=== PATIENT | female | born 1940 | race Caucasian/White ===

== ENCOUNTER 2018-03-31 18:53 | Emergency (ER) | payer MEDICARE ==
[~2018-03-31] VITALS: Ht 167.6 cm; Wt 79.4 kg
[~2018-03-31 18:53] MED LIST: ATORVASTATIN CA20 MG PO; BUSPAR; BUSPIRONE HCL10 MG PO; CARBAMAZEPINE PO; COUMADIN5 MG PO; CRESTOR10 MG PO; CYCLOBENZAPRINE10 MG PO; DETROL LA4 MG PO; DEXILANT; DEXILANT60 MG PO; DIGOXIN250 MCG PO; DILTIAZEM ER240 MG PO; FUROSEMIDE40 MG PO; HYDROCODONE; LACTULOSE20 GM/30 M PO; LASIX40 MG PO; LEVOTHYROXINE200 MCG PO; LIDOCAIN PATCH TD; LIDODERM700 MG TD; LISINOPRIL; LISINOPRIL10 MG PO; LOZOL; LOZOL 2.5MG2.5 MG PO; METOPROLOL SUCC25 MG PO; MULTIVITAMIN PO; NASAL SPRAY INH; NORCO 10MG-325MG1 EA PO; NYSTATIN PO; NYSTATIN TOPICAL TOP; PANTOPRAZOLE SO40 MG PO; POTASSIUM CHLO10 ME1 PO; PREDNISONE10 MG PO; PREMARIN; PREMARIN0.9 MG PO; PREMARIN1.25 MG PO; SENNA; SENNA PO; SIMETHICONE80 MG PO; SOMA; SOMA250 MG PO; SYNTHROID; SYNTHROID PO; SYNTHROID75 MCG PO; TEGRETOL; TEGRETOL200 MG PO; TOPRAL; TOPROL XL25 MG PO; TOPROL XL50 MG PO; WARFARIN; WARFARIN SODIUM3 MG PO; WARFARIN SODIUM4 MG PO; WARFARIN SODIUM6 MG PO; ZOLPIDEM; xarelto PO
[2018-03-31] MEDS ORDERED: SODIUM CHLORIDE 0.9% 1000ML 1,000 ML IV STA (19:47)
[2018-03-31 20:11] LABS: BASOPHILS # (AUTO) 0.1 (0.0-0.1); BASOPHILS % 0.8 % (0.0-1.0); EOSINOPHILS # (AUTO) 0.1 (0.0-0.4); HEMATOCRIT 38.1 % (34.2-44.1); HEMOGLOBIN 12.8 g/dL (12.0-16.0); MEAN CORPUSCULAR HEMOGLOBIN 31.5 pg (28-32); MEAN CORPUSCULAR HGB CONC 33.6 g/dL (31-35); MEAN CORPUSCULAR VOLUME 93.8 fL (81-99); MONOCYTES # (AUTO) 0.6 (0.2-0.8); MONOCYTES % 7.3 % (4.4-11.3); NEUTROPHILS % 64.6 % (38.7-80.0); PLATELET COUNT 209 x10e3/uL (140-360); RED BLOOD COUNT 4.06 x10e6/uL (3.6-5.1); RED CELL DISTRIBUTION WIDTH 13.2 % (11.7-14.4)
[2018-03-31 20:46] LABS: BILIRUBIN,URINE NEGATIVE (NEGATIVE); CLARITY,URINE SL CLOUDY (CLEAR); COLOR,URINE YELLOW (YELLOW); KETONES,URINE NEGATIVE (NEGATIVE); LEUKOCYTE ESTERASE ,URINE NEGATIVE (NEGATIVE); NITRITE,URINE NEGATIVE (NEGATIVE); PROTEIN,URINE DIPSTICK NEGATIVE (NEGATIVE); URINE UROBILINOGEN 0.2 mg/dL (0.2 - 1)
[2018-03-31 20:54] LABS: BACTERIA,URINE MODERATE /HPF; EPITHELIAL CELLS,URINE MODERATE /LPF
[2018-03-31] MEDS ORDERED: IOPAMIDOL 370 MG/ML 200 ML INFUS..BTL INJ ONE (21:06)
[2018-03-31] MEDS ORDERED: SODIUM CHLORIDE 0.9% 50ML 0 ML ONE (21:06)
[2018-03-31 21:07] LABS: ALBUMIN 4.1 g/dL (3.5-5.0); ANION GAP 17.4 mmol/L (8-16); CREATININE, SERUM 1.58 mg/dL (0.57-1.11); POTASSIUM 4.4 mmol/L (3.5-5.1)
[2018-03-31 21:14] LABS: CREATINE KINASE MB 3.9 ng/mL (0-5.0)
--- NOTE | 2018-03-31 22:06 | Diagnostic Imaging Report ---
EXAMINATION: Head CT HISTORY: Status post fall the day before, dizziness, pain, trauma COMPARISON: Head CT on 12/04/2015 TECHNIQUE: Multidetector axial images were obtained without contrast from the foramen magnum to the vertex . The images were reconstructed using brain and bone algorithms. Thin section brain images were reformatted into coronal and sagittal planes. Image quality: Motion/streaking artifact limits the evaluation of the skull base and posterior cranial fossa. Dose modulation, iterative reconstruction, and/or weight based adjustment of the mA/kV was utilized to reduce the radiation dose to as low as reasonably achievable. FINDINGS: Parenchyma: 1. Persistent mild chronic microvascular ischemic changes. 2. No mass or hemorrhage. No CT evidence of acute territorial vascular insult. Extra-axial spaces:No abnormal density. No extra-axial fluid collections Brain volume: Mild generalized brain volume loss, unchanged from prior study.. Ventricles: No hydrocephalus or displacement. Arteries: No density suggestive of thrombus. Dural sinuses: No abnormal density. Extra-axial spaces: No abnormal density. Foramen magnum: No mass, Chiari malformation, or basilar invagination. Sella: No obvious mass. Paranasal/mastoid sinuses: Imaged portions unremarkable. Skull/Scalp: No lytic or blastic lesions. No fractures. Orbits: Left scleral band. IMPRESSION: 1. No acute posttraumatic intracranial hemorrhage. 2. Persistent mild chronic microvascular ischemic changes. Unchanged from head CT 12/04/2015. Signed by: Dr. Helena Mondragon M.D. on 03/31/2018 10:02 PM
--- NOTE | 2018-03-31 22:26 | Diagnostic Imaging Report ---
EXAM: CT ABDOMEN/PELVIS WO DATE: 03/31/2018 9:18 PM INDICATION: Abdominal pain, \S\Look for stone, SBO, appy, colitis \S\Y COMPARISON: 04/14/2016 TECHNIQUE: The abdomen and pelvis were scanned using a multidetector helical scanner. Coronal and sagittal reformations were obtained. CT low dose techniques were utilized, as applicable. IV Contrast: 0 ml Isovue 300/370 FINDINGS: Lack of IV contrast decreases sensitivity in evaluating abdominal and pelvic organs. LOWER THORAX: No consolidations LIVER/BILIARY: No masses. Stable biliary ductal dilation, common bile duct measuring 1.4 cm.. GALLBLADDER: Unremarkable SPLEEN: Unremarkable PANCREAS: Unremarkable ADRENALS: Stable nodular thickening of the left adrenal KIDNEYS: No stones. No hydronephrosis. GI TRACT: Postsurgical changes are again seen about the stomach. No evidence of bowel obstruction or appendicitis. VESSELS: Mild atherosclerotic calcifications PERITONEUM/RETROPERITONEUM: No free air or fluid LYMPH NODES: No lymphadenopathy REPRODUCTIVE ORGANS/BLADDER: Hysterectomy. Otherwise unremarkable SOFT TISSUES: Unremarkable BONES: Multilevel degenerative changes. IMPRESSION: No acute abnormality on noncontrast evaluation. No significant change from prior. Signed by: Dr Myrtle Rivas MD on 03/31/2018 10:22 PM
[2018-03-31 22:47] VITALS: BP 115/75
== END 2018-03-31 22:55 | disposition home or self-care (01) ==
LOC: ER 18:53
DX: G89.11 Acute pain due to trauma (principal); R10.84 Generalized abdominal pain; W18.39XA Other fall on same level, initial encounter; Y92.830 Public park as the place of occurrence of the external cause; I10 Essential (primary) hypertension; I48.91 Unspecified atrial fibrillation
CPT/HCPCS: 36415; 70450; 74176; 80053; 81001; 82150; 82550; 82553; 83690; 84484; 85025; 87086; 93005; 99284; J7030; Q9967

== ENCOUNTER → 2018-04-11 | Outpatient (CLI) | payer MEDICARE ==
--- NOTE | 2018-04-11 14:30 | Diagnostic Imaging Report ---
Frontal and lateral views of the chest. HISTORY: Cough, hemoptysis COMPARISON: Chest radiographs January 10, 2014 and March 11, 2014. DISCUSSION: Lungs: Low lung volumes result in bibasilar vascular crowding, accentuation of the pulmonary interstitial markings, central pulmonary vasculature, and the cardiac silhouette. Allowing for these limitations, the findings are as follows: No evidence of a consolidative pneumonia or pulmonary alveolar edema. A stable 3 mm nodular density projects at the periphery of the mid left lung on the frontal view, likely calcified granuloma. Stable appearing mildly prominent central peribronchial interstitial markings. No consolidative pneumonia or pulmonary alveolar edema. Pleura: No pleural effusion or pneumothorax. Heart and mediastinum: The cardiac silhouette appears mildly enlarged.. Bones: Accentuation of the thoracic kyphosis. Metallic anterior cervical/thoracic hardware, partially evaluated. IMPRESSION: 1. Findings which could be seen in the setting of a nonspecific bronchitis. 2. No consolidative pneumonia or pulmonary alveolar edema. Signed by: Dr. Jared Li D.O., M.M.M. on 04/11/2018 2:26 PM
== END ==
LOC: RAD 13:38
DX: R05 Cough (principal); R04.2 Hemoptysis; Z79.01 Long term (current) use of anticoagulants
CPT/HCPCS: 71046

== ENCOUNTER → 2018-05-03 | Outpatient (CLI) | payer MEDICARE ==
--- NOTE | 2018-05-03 12:10 | Diagnostic Imaging Report ---
Renal ultrasound dated 05/03/2018. History: Chronic kidney disease Discussion: Transverse and longitudinal images of the kidneys were obtained demonstrating normal renal sizes and echogenicities. There is no evidence of hydronephrosis or mass. The right kidney measures 10.2 x 5.4 x 6.9 cm and the left kidney measures 9.8 x 4.7 x 5.0 cm. Renal cortical thickness is 1.7 cm on the right and 1.6 cm on the left. Small hypoechoic region in the mid polar area of the right kidney likely represents a cyst measuring 2.3 cm. There is a hyperechoic foci in the left kidney mid polar region with out evidence of hydronephrosis that likely represents a 6 mm nonobstructing renal stone. The urinary bladder is unremarkable. There is no evidence of free fluid. IMPRESSION: 1. No evidence of hydronephrosis. 2. Right renal cyst and nonobstructing left renal stone. Signed by: Dr. Amado Cohen DO on 05/03/2018 12:07 PM
== END ==
LOC: US 09:49
DX: N18.3 Chronic kidney disease, stage 3 (moderate) (principal)
CPT/HCPCS: 76770

== ENCOUNTER → 2018-05-10 | Outpatient (CLI) | payer MEDICARE ==
--- NOTE | 2018-05-11 08:39 | Diagnostic Imaging Report ---
MRI of the right hip without contrast. History: Hip pain. Fall. Decreased range of motion. Pain not responding to conservative management. Pain worse with walking. Technique: Multiplanar multisequence MRI of the hip without contrast. Comparison CT scan 03/31/2018 Findings: There is no acute fracture, subluxation or avascular necrosis about the right hip. Scattered degenerative changes are seen about the visualized lower lumbar spine and pelvis. The urinary bladder and remainder of the visualized pelvic structures are grossly unremarkable. There is mild degenerative arthrosis in the right hip joint with thinning of the articular cartilage at the superior lateral acetabulum and adjacent femoral head. There is degeneration and fraying of the labrum. There is a physiologic amount of fluid in the hip joint. The remainder of the visualized ligaments and tendons about the hip are intact. There is a moderate amount of soft tissue edema and fluid signal intensity adjacent to the right greater trochanter consistent with trochanteric bursitis and associated partial tearing/tendinosis of the gluteal tendons at the greater trochanteric insertion site. There is mild gluteal muscle atrophy. There is insertional hamstring tendinosis. The remainder the visualized muscles are normal in size and morphology. The visualized neurovascular bundles are intact. Impression: No acute fracture, subluxation or avascular necrosis about the right hip. Moderate soft tissue edema and fluid signal intensity adjacent to the right hip greater trochanter consistent with trochanteric bursitis and associated partial tearing/tendinosis of the gluteal tendons. Mild insertional hamstring tendinosis. Signed by: Dr. Arturo Daniels M.D. on 05/11/2018 8:36 AM
--- NOTE | 2018-05-11 08:44 | Diagnostic Imaging Report ---
Right knee MRI without contrast. History: Knee pain. Fall. Decreased range of motion. Pain worse with walking. Comparison: None. Technique: Multiplanar multi-sequence MRI of the knee without contrast. Findings: Medial compartment: There is mild degeneration of the medial meniscus without tear. The medial compartmental articular cartilage surfaces are slightly thin. The medial collateral ligament complex is intact. Lateral compartment: There is a complex tear involving the posterior horn and body segments of the lateral meniscus best seen on sagittal series 3 image 26 through 28. There is articular cartilage fraying and deep fissuring at the posterior lateral femoral condyle with underlying bone marrow edema. There are peripheral marginal osteophytes. The lateral collateral ligament complex is intact. Intercondylar notch: The ACL and PCL are intact. Patellofemoral compartment: There are regions of full-thickness articular cartilage loss in the patellofemoral compartment with underlying bone marrow edema Extensor mechanism: The quadriceps and patellar tendons are normal. Other findings: There is a joint effusion and synovitis. There is no acute fracture, subluxation or avascular necrosis. 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 Regions of full-thickness articular cartilage loss in the patellofemoral compartment with underlying bone marrow edema. Mild degenerative arthrosis in the medial compartment of the knee. Signed by: Dr. Arturo Daniels M.D. on 05/11/2018 8:40 AM
== END ==
LOC: MRI 14:26
PROVIDERS: ATTEND Psychiatry & Neurology Clinical Neurophysiology
DX: M25.561 Pain in right knee (principal); M25.551 Pain in right hip; T14.90XA Injury, unspecified, initial encounter

== ENCOUNTER → 2019-09-28 | Outpatient (CLI) | payer MEDICARE ==
[~2019-09-28] MED LIST changes: +DIATRIZOATE MEGL/DIATRIZOA SOD 30 ML BTL PO ONE; +IOPAMIDOL 370 MG/ML 200 ML INFUS..BTL INJ ONE; +SODIUM CHLORIDE 0.9% 500ML 500 ML ONE; +SODIUM CHLORIDE 0.9% 50ML 50 ML ONE
[2019-09-28 15:35] LABS: CREATININE, SERUM 0.94 mg/dL (0.57-1.11)
--- NOTE | 2019-09-28 17:09 | Diagnostic Imaging Report ---
CT of the abdomen and pelvis, with contrast, 09/28/2019. History: Abdominal pain. Comparison: None available. Technique: Multidetector CT scanning of the abdomen and pelvis was performed from the level of the lung bases to the inferior pubic rami after intravenous and oral administration of contrast. Coronal and sagittal multiplanar reformations were obtained. RADIATION DOSE: Total DLP: 634 mGy*cm Dose modulation, iterative reconstruction, and/or weight based adjustment of the mA/kV was utilized to reduce the radiation dose to as low as reasonably achievable. Discussion: LUNG BASES: No visualized abnormalities. ABDOMEN: The common bile duct is prominent measuring 11 mm in diameter without visible filling defect. The gallbladder is unremarkable without evidence of stones or wall thickening. The liver, spleen, pancreas, adrenal glands, and kidneys are normal. The hepatic vein, portal vein, and splenic vein are patent. The abdominal aorta is within normal limits for size. Multiple surgical clips are present in the stomach consistent with prior gastric surgery. Small and large bowel are unremarkable There is no evidence of adenopathy or free fluid. PELVIS: The bladder is unremarkable. The uterus and adnexa are absent. There is no evidence of free fluid or adenopathy. BONES AND SOFT TISSUES: Advanced degenerative changes are present throughout the lumbar spine without evidence of lytic or sclerotic lesion. IMPRESSION: 1. Common bile duct dilatation without evidence of cholelithiasis or choledocholithiasis. Correlate with laboratory values to determine need for further evaluation with MRCP. 2. Status post gastric bypass. No evidence of bowel obstruction. 3. Status post hysterectomy. Signed by: Thomas Hartman on 09/28/2019 5:07 PM
== END ==
LOC: CT 14:27
PROVIDERS: ATTEND Internal Medicine Gastroenterology
DX: R10.9 Unspecified abdominal pain (principal)
CPT/HCPCS: 36415; 74177; 82565; 84520; 96360; J7040; Q9967

== ENCOUNTER 2019-10-24 15:12 | Emergency (ER) | payer MEDICARE ==
[~2019-10-24] VITALS: Ht 167.6 cm; Wt 79.4 kg
[~2019-10-24 15:12] MED LIST changes: -DIATRIZOATE MEGL/DIATRIZOA SOD 30 ML BTL PO ONE; -IOPAMIDOL 370 MG/ML 200 ML INFUS..BTL INJ ONE; -SODIUM CHLORIDE 0.9% 500ML 500 ML ONE; -SODIUM CHLORIDE 0.9% 50ML 50 ML ONE
[2019-10-24] MEDS ORDERED: ASPIRIN 81 MG CHEW TAB PO ONE (15:45)
[2019-10-24 16:00] LABS: BASOPHILS % 0.3 % (0.0-1.0); EOSINOPHILS # (AUTO) 0.1 (0.0-0.4); EOSINOPHILS % 1.3 % (0.0-6.0); HEMOGLOBIN 11.3 g/dL (12.0-16.0); LYMPHOCYTES % 14.9 % (18.0-39.1); MEAN CORPUSCULAR HEMOGLOBIN 31.7 pg (28-32); MEAN CORPUSCULAR HGB CONC 33.2 g/dL (31-35); MEAN CORPUSCULAR VOLUME 95.5 fL (81-99); MONOCYTES # (AUTO) 0.5 (0.2-0.8); MONOCYTES % 7.4 % (4.4-11.3); NEUTROPHILS # (AUTO) 5.2 (2.1-6.9); NEUTROPHILS % 75.7 % (38.7-80.0); PLATELET COUNT 154 x10e3/uL (140-360); RED BLOOD COUNT 3.56 x10e6/uL (3.6-5.1); RED CELL DISTRIBUTION WIDTH 13.3 % (11.7-14.4)
[2019-10-24 16:10] LABS: INR 2.7; PROTHROMBIN TIME 30.7 seconds (11.9-14.5)
[2019-10-24 16:11] LABS: PARTIAL THROMBOPLASTIN TIME 55.6 seconds (23.8-35.5)
[2019-10-24 16:20] LABS: ALANINE AMINOTRANSFERASE 15 IU/L (0-55); ALBUMIN 3.8 g/dL (3.5-5.0); ALBUMIN/GLOBULIN RATIO 1.1 (0.8-2.0); ALKALINE PHOSPHATASE 80 IU/L (40-150); ANION GAP 14.7 mmol/L (8-16); BLOOD UREA NITROGEN 21 mg/dL (7-26); BUN/CREATININE RATIO 19 (6-25); CALCIUM 8.8 mg/dL (8.4-10.2); CARBON DIOXIDE 28 mmol/L (22-29); CHLORIDE 98 mmol/L (98-107); CREATINE KINASE 364 IU/L (29-168); CREATININE, SERUM 1.11 mg/dL (0.57-1.11); EST GLOMERULAR FILTRATION RATE 47 ML/MIN (60-); GLUCOSE 101 mg/dL (74-118); POTASSIUM 4.7 mmol/L (3.5-5.1); SODIUM 136 mmol/L (136-145)
[2019-10-24 16:43] LABS: CLARITY,URINE HAZY (CLEAR); COLOR,URINE YELLOW (YELLOW); LEUKOCYTE ESTERASE ,URINE 1+ (NEGATIVE)
[2019-10-24 16:44] LABS: BACTERIA,URINE MANY /HPF; BILIRUBIN,URINE NEGATIVE (NEGATIVE); KETONES,URINE NEGATIVE (NEGATIVE); NITRITE,URINE POSITIVE (NEGATIVE); PROTEIN,URINE DIPSTICK NEGATIVE (NEGATIVE); URINE UROBILINOGEN 0.2 mg/dL (0.2 - 1); WBC,URINE (MAN) >50 /HPF (0-5)
--- NOTE | 2019-10-24 16:45 | Diagnostic Imaging Report ---
EXAM: CHEST SINGLE (PORTABLE) DATE: 10/24/2019 3:33 PM INDICATION: Shortness of breath COMPARISON: 04/11/2018 FINDINGS: The trachea is midline. The lungs are symmetrically expanded without evidence for large focal consolidation, pneumothorax, or significant pleural effusion. The cardiac appears prominent which may be secondary to technique but stable from the prior examination. Mediastinal contours are unremarkable. Partially visualized cervical fusion hardware noted. No acute osseous abnormality is identified. IMPRESSION: No acute cardiopulmonary process identified. Signed by: Dr. Zoltan Mcrae MD on 10/24/2019 4:41 PM
[2019-10-24] MEDS ORDERED: SODIUM CHLORIDE 0.9% 1000ML 1,000 ML IV STA (17:13)
[2019-10-24] MEDS ORDERED: MEROPENEM 1GM 100 ML IV ONE (17:30)
[2019-10-24 18:45] LABS: CREATINE KINASE 299 IU/L (29-168)
[2019-10-30] MEDS ORDERED: LEVOTHYROXINE50 MCG PO (13:20)
[2019-10-30] MEDS ORDERED: FERROUS GLUCON324 M2 PO (13:29)
[2019-10-30] MEDS ORDERED: ZYRTEC10 MG PO (13:31)
[2019-10-30] MEDS ORDERED: [UNRECOGNIZED DRUG - OTHER] PO (13:31)
[2019-10-30] MEDS ORDERED: DUCOLAX PO (13:32)
[2019-10-30] MEDS ORDERED: NASACORT16.9 ML (13:35)
[2019-10-30] MEDS ORDERED: TYLENOL WITH C1 EACH PO (13:36)
== END 2019-10-24 20:14 | disposition home or self-care (01) ==
LOC: ER 15:12
DX: R50.9 Fever, unspecified (principal); R05 Cough; J20.9 Acute bronchitis, unspecified; N30.91 Cystitis, unspecified with hematuria
CPT/HCPCS: 36415; 71045; 80053; 81001; 82550; 82553; 83880; 84484; 85025; 85610; 85730; 87040; 87086; 87186; 87400; 93005; 99284; J2185; J7030

== ENCOUNTER → 2019-10-30 | Outpatient (CLI) | payer MEDICARE ==
[~2019-10-30] MED LIST changes: +DUCOLAX PO; +FERROUS GLUCON324 M2 PO; +KLOR-CON 1010 MEQ PO; +LEVOTHYROXINE50 MCG PO; +METOPROLOL TART25 MG PO; +NASACORT16.9 ML; +TYLENOL WITH C1 EACH PO; +ZYRTEC10 MG PO; +[UNRECOGNIZED DRUG - OTHER] PO
--- NOTE | 2019-10-30 14:11 | Diagnostic Imaging Report ---
EXAMINATION: CHEST 2 VIEWS INDICATION: Pre-operative COMPARISON: Chest radiograph 10/24/2019 FINDINGS: LINES/TUBES:None LUNGS:The lungs are well-inflated. No focal consolidation or pulmonary edema. PLEURA:No pleural effusion or pneumothorax. MEDIASTINUM:The cardiomediastinal silhouette appears normal in size and shape. BONES/SOFT TISSUES:No acute osseous injury. Cervical spine fusion hardware. ABDOMEN:No free air under the diaphragm. Surgical clips in the left upper abdomen. IMPRESSION: No focal pneumonia or pulmonary edema. Signed by: Laura Waller MD on 10/30/2019 2:08 PM
[2019-10-30 14:13] LABS: INR 2.73
[2019-10-30 14:30] LABS: BILIRUBIN,URINE NEGATIVE (NEGATIVE); CLARITY,URINE CLEAR (CLEAR); COLOR,URINE YELLOW (YELLOW); KETONES,URINE NEGATIVE (NEGATIVE); LEUKOCYTE ESTERASE ,URINE NEGATIVE (NEGATIVE); NITRITE,URINE NEGATIVE (NEGATIVE); PROTEIN,URINE DIPSTICK NEGATIVE (NEGATIVE); URINE UROBILINOGEN 0.2 mg/dL (0.2 - 1)
== END ==
LOC: DX 10:49 → EDSTATUS 11-01 07:30
PROVIDERS: ATTEND Internal Medicine Gastroenterology
DX: Z01.818 Encounter for other preprocedural examination (principal); R10.10 Upper abdominal pain, unspecified; K92.1 Melena
CPT/HCPCS: 36415; 71046; 81003; 85610

== ENCOUNTER 2019-11-03 20:11 | Observation (INO) | payer MEDICARE ==
[~2019-11-03] VITALS: Ht 167.6 cm; Wt 79.4 kg
[~2019-11-03 20:11] MED LIST changes: -KLOR-CON 1010 MEQ PO; -METOPROLOL TART25 MG PO
[2019-11-03] MEDS ORDERED: SODIUM CHLORIDE 0.9% 1000ML 1,000 ML IV STA (20:18)
[2019-11-03 20:35] LABS: BASOPHILS # (AUTO) 0.1 (0.0-0.1); BASOPHILS % 0.7 % (0.0-1.0); EOSINOPHILS # (AUTO) 0.1 (0.0-0.4); EOSINOPHILS % 1.5 % (0.0-6.0); HEMATOCRIT 37.4 % (34.2-44.1); HEMOGLOBIN 12.6 g/dL (12.0-16.0); LYMPHOCYTES % 25.2 % (18.0-39.1); MEAN CORPUSCULAR HEMOGLOBIN 31.3 pg (28-32); MEAN CORPUSCULAR HGB CONC 33.7 g/dL (31-35); MONOCYTES # (AUTO) 0.6 (0.2-0.8); MONOCYTES % 7.8 % (4.4-11.3); NEUTROPHILS # (AUTO) 5.2 (2.1-6.9); NEUTROPHILS % 64.6 % (38.7-80.0); PLATELET COUNT 222 x10e3/uL (140-360); RED BLOOD COUNT 4.02 x10e6/uL (3.6-5.1); RED CELL DISTRIBUTION WIDTH 13.3 % (11.7-14.4)
[2019-11-03 20:38] LABS: BILIRUBIN,URINE NEGATIVE (NEGATIVE); CLARITY,URINE HAZY (CLEAR); COLOR,URINE YELLOW (YELLOW); KETONES,URINE NEGATIVE (NEGATIVE); LEUKOCYTE ESTERASE ,URINE TRACE (NEGATIVE); NITRITE,URINE NEGATIVE (NEGATIVE); PROTEIN,URINE DIPSTICK NEGATIVE (NEGATIVE); URINE UROBILINOGEN 0.2 mg/dL (0.2 - 1)
[2019-11-03 20:40] LABS: BACTERIA,URINE FEW /HPF; EPITHELIAL CELLS,URINE FEW /LPF; RBC,URINE 0-5 /HPF (0-5); WBC,URINE (MAN) 0-5 /HPF (0-5)
[2019-11-03 20:57] LABS: ALBUMIN 4.5 g/dL (3.5-5.0); ALBUMIN/GLOBULIN RATIO 1.3 (0.8-2.0); ANION GAP 13.1 mmol/L (8-16); CREATININE, SERUM 1.18 mg/dL (0.57-1.11); POTASSIUM 4.1 mmol/L (3.5-5.1)
[2019-11-03 21:03] LABS: CREATINE KINASE MB 16.5 ng/mL (0-5.0)
[2019-11-03] MEDS ORDERED: SODIUM CHLORIDE 0.9% 50ML 50 ML ONE (21:14)
[2019-11-03] MEDS ORDERED: IOPAMIDOL 370 MG/ML 200 ML INFUS..BTL INJ ONE (21:14)
--- NOTE | 2019-11-03 22:42 | Diagnostic Imaging Report ---
EXAM: CT Abdomen and Pelvis WITH contrast INDICATION: ^abd pain ^[id number] ^[id number] COMPARISON: CT dated 09/28/2019 TECHNIQUE: Abdomen and pelvis were scanned utilizing a multidetector helical scanner from the lung base to the pubic symphysis after administration of IV contrast. Coronal and sagittal reformations were obtained. Dose modulation, iterative reconstruction, and/or weight based adjustment of the mA/kV was utilized to reduce the radiation dose to as low as reasonably achievable. Routine protocol was performed. Scan was performed when during portal venous phase. IV CONTRAST: 100 mL of Isovue-370 ORAL CONTRAST: Water COMPLICATIONS: None RADIATION DOSE: Total DLP: 591.06 mGy*cm Estimated effective dose: (DLP x 0.015 x size factor) mSv CTDIvol has been reviewed. It is below the limits set by the Radiation Protocol Committee (RPC). FINDINGS: LINES and TUBES: None. LOWER THORAX: Unremarkable HEPATOBILIARY: No focal hepatic lesions. Mild intrahepatic biliary dilatation, especially the left lobe. The common bile left is distended up to 2 cm, previously 1.5 cm. GALLBLADDER: No radio-opaque stones or sludge. No wall thickening. SPLEEN: No splenomegaly. PANCREAS: Atrophic. Suspected pancreatic divisum. No focal masses or ductal dilatation. ADRENALS: Unchanged 1 cm left adrenal nodule versus thickening. No right adrenal nodules. KIDNEYS/URETERS: Kidneys enhance symmetrically. No hydronephrosis. No cystic or solid mass lesions. No stones. GI TRACT: Gastric surgery. No abnormal distention, wall thickening, or evidence of bowel obstruction. Appendix is not visualized. PELVIC ORGANS/BLADDER: Hysterectomy. Bladder is unremarkable. LYMPH NODES: No lymphadenopathy. VESSELS: There is mild atherosclerotic disease in the aorta and major arterial branches. PERITONEUM / RETROPERITONEUM: No free air or fluid. BONES: Advanced degenerative changes of the spine. SOFT TISSUES: Multiple bilateral gluteal calcified injection granulomas. IMPRESSION: 1. Again seen biliary dilatation, increased when compared to prior CT. Findings are suspicious for choledocholithiasis. Recommend correlation with MRCP or ERCP. 2. No acute inflammatory process in the abdomen/pelvis. Signed by: Dr. Leodan Best MD on 11/03/2019 10:39 PM
[2019-11-03] MEDS ORDERED: MORPHINE SULFATE 2 MG/ML SYR 1ML IV PRN (23:00)
[2019-11-03] MEDS: METRONIDAZOLE 500MG/NS 100ML 100 ML IV SCH (23:13)
[2019-11-03] MEDS: SODIUM CHLORIDE 0.9% 1000ML 1,000 ML IV SCH (23:13)
[2019-11-03] MEDS: MORPHINE SULFATE INJ 4 MG/ML INJ 1ML IV PRN (23:13)
[2019-11-03] MEDS: ONDANSETRON HCL INJ 2MG/ML 2ML 2 MG/ML VIAL IV PRN (23:13)
[2019-11-03] MEDS ORDERED: CRESTOR10 MG PO (23:18)
[2019-11-03] MEDS ORDERED: KLOR-CON 1010 MEQ PO (23:18)
[2019-11-03] MEDS ORDERED: METOPROLOL TART25 MG PO (23:18)
--- NOTE | 2019-11-03 23:42 | NUR ---
NOTIFIED DR. Massimo BOLAÑOS AT THIS TIME REGARDING CONSULT. NEW ORDER RECEIVED FOR CLEAR LIQUID DIET
[2019-11-04] VITALS (10 sets, daily range): BP systolic 102–137; BP diastolic 57–94
[2019-11-04] MEDS ORDERED: PIPER-TAZ 3.375 GM 50 ML IV SCH
[2019-11-04] MEDS: ONDANSETRON HCL INJ 2MG/ML 2ML 2 MG/ML VIAL IV PRN ×3 (03:30→20:05)
[2019-11-04] MEDS: MORPHINE SULFATE INJ 4 MG/ML INJ 1ML IV PRN ×4 (03:30→20:05)
[2019-11-04 06:12] LABS: BASOPHILS % 0.7 % (0.0-1.0); EOSINOPHILS # (AUTO) 0.1 (0.0-0.4); EOSINOPHILS % 1.3 % (0.0-6.0); HEMATOCRIT 31.5 % (34.2-44.1); HEMOGLOBIN 10.5 g/dL (12.0-16.0); LYMPHOCYTES # (AUTO) 1.5 (1.0-3.2); MEAN CORPUSCULAR HEMOGLOBIN 31.3 pg (28-32); MEAN CORPUSCULAR HGB CONC 33.3 g/dL (31-35); MONOCYTES # (AUTO) 0.4 (0.2-0.8); NEUTROPHILS # (AUTO) 3.4 (2.1-6.9); NEUTROPHILS % 62.8 % (38.7-80.0); PLATELET COUNT 167 x10e3/uL (140-360); RED BLOOD COUNT 3.35 x10e6/uL (3.6-5.1); RED CELL DISTRIBUTION WIDTH 13.4 % (11.7-14.4)
[2019-11-04 06:51] LABS: ALBUMIN 3.3 g/dL (3.5-5.0); ALBUMIN/GLOBULIN RATIO 1.1 (0.8-2.0); ANION GAP 9.3 mmol/L (8-16); CALCIUM 8.1 mg/dL (8.4-10.2); CREATININE, SERUM 0.91 mg/dL (0.57-1.11); POTASSIUM 4.3 mmol/L (3.5-5.1)
[2019-11-04 07:07] LABS: CREATINE KINASE 394 IU/L (29-168)
[2019-11-04] MEDS ORDERED: METRONIDAZOLE 500MG/NS 100ML 100 ML IV SCH (09:00)
[2019-11-04] MEDS: SODIUM CHLORIDE 0.9% 1000ML 1,000 ML IV SCH ×3 (09:01→22:20)
[2019-11-04] MEDS: METRONIDAZOLE 500MG/NS 100ML 100 ML IV SCH ×2 (09:01→16:21)
[2019-11-04 15:21] LABS: CREATINE KINASE MB 6.1 ng/mL (0-5.0)
--- NOTE | 2019-11-04 19:39 | NUR ---
SPOKE TO DR. SALOME BOLAÑOS AT THIS TIME. NEW ORDERS RECEIVED FOR PT/INR AND TO CONTINUE HOME MEDS EXCEPT WARFARIN
[2019-11-04] MEDS ORDERED: [UNRECOGNIZED DRUG - OTHER] PO PRN (20:00)
[2019-11-04] MEDS ORDERED: BISACODYL 5 MG TAB EC PO PRN (20:00)
[2019-11-04] MEDS ORDERED: CARISOPRODOL 350 MG PO PRN (20:00)
[2019-11-04] MEDS ORDERED: TRIAMCINOLONE ACETONIDE SCH (20:00)
[2019-11-04] MEDS ORDERED: FLUTICASONE PROPIONATE NASAL SPRAY NS PRN (20:30)
[2019-11-04] MEDS ORDERED: CARISOPRODOL 350 MG TAB PO PRN (20:30)
[2019-11-04 20:34] LABS: INR 1.43; PROTHROMBIN TIME 18.4 seconds (11.9-14.5)
[2019-11-04] MEDS ORDERED: BUSPIRONE HCL 10 MG TABLET PO SCH (21:00)
[2019-11-04] MEDS: METOPROLOL TARTRATE 25 MG TAB PO SCH (21:14)
[2019-11-04] MEDS: CARBAMAZEPINE 200 MG TAB PO SCH (21:14)
[2019-11-04] MEDS: PANTOPRAZOLE SOD 40 MG TABEC PO SCH (21:14)
[2019-11-04] MEDS: LISINOPRIL 10 MG TAB PO SCH (21:14)
[2019-11-04] MEDS: SIMVASTATIN 40 MG TAB PO SCH (21:22)
[2019-11-05] MEDS: ONDANSETRON HCL INJ 2MG/ML 2ML 2 MG/ML VIAL IV PRN ×5 (00:10→21:22)
[2019-11-05] MEDS: MORPHINE SULFATE INJ 4 MG/ML INJ 1ML IV PRN ×5 (00:10→21:22)
--- NOTE | 2019-11-05 00:37 | NUR ---
DR. Massimo BOLAÑOS DOING ROUNDS. NEW ORDERS RECEIVED FOR DULCOLAX PO 20MG EVERY 30 MINS X3 AND ROUTINE MRI MRCP WO.
[2019-11-05] MEDS ORDERED: BISACODYL 5 MG TAB EC PO ONE ×3 (01:00→02:00)
[2019-11-05] MEDS: LEVOTHYROXINE SODIUM 75 MCG TAB PO SCH (06:00)
[2019-11-05 06:24] VITALS: BP 117/84
--- NOTE | 2019-11-05 07:00 | NUR ---
RECEIVED PATIENT AWAKE RESTING IN BED. NO S/S OF DISTRESS. BED LOW, WHEELS LOCKED, SIDE RAILS X2. CALL LIGHT IN REACH WILL CONTINUE TO MONITOR PATIENT.
[2019-11-05 08:11] VITALS: BP 130/66
[2019-11-05] MEDS ORDERED: FUROSEMIDE 40 MG TAB PO SCH (09:00)
[2019-11-05] MEDS ORDERED: NON-FORMULARY MEDICATION (Cetirizine Hcl (Zyrtec) 10 MG) PO SCH (09:00)
[2019-11-05] MEDS ORDERED: LEVOTHYROXINE SODIUM 50 MCG TAB PO SCH (09:00)
[2019-11-05] MEDS ORDERED: NON-FORMULARY MEDICATION (Potassium Chloride (Klor-Con 10) 1 TAB) PO SCH (09:00)
[2019-11-05 09:19] VITALS: BP 130/66
[2019-11-05] MEDS: METRONIDAZOLE 500MG/NS 100ML 100 ML IV SCH ×2 (09:25→17:27)
[2019-11-05] MEDS: SODIUM CHLORIDE 0.9% 1000ML 1,000 ML IV SCH ×2 (10:02→14:46)
[2019-11-05] MEDS: POTASSIUM CHLORIDE 10MEQ EA PO SCH ×2 (10:35→17:27)
[2019-11-05] MEDS: FERROUS SULFATE 325 MG TAB PO SCH ×2 (10:35→17:27)
[2019-11-05] MEDS: PANTOPRAZOLE SOD 40 MG TABEC PO SCH ×3 (10:35→21:22)
[2019-11-05] MEDS: BUSPIRONE HCL 5 MG TAB PO SCH ×3 (10:35→21:22)
[2019-11-05] MEDS: LORATADINE 10 MG TAB PO SCH (10:35)
[2019-11-05] MEDS: METOPROLOL SUCCINATE 50 MG TAB XL PO SCH (10:35)
--- NOTE | 2019-11-05 11:15 | NUR ---
ASSESSMENT: Spiritual concern Pt hopeful concerning recovery from illness. 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 Pt states her niece is caring for sister during her hospitalization. Pt identifies as Ep[employer]opalian. Intervention: Provided empathic pastoral listening. Provided prayer. Outcome: Pt expressed appreciation for support. No need to follow at this time. CHRISTIAN RUIZ [employer] Spiritual Care Department O: [phone]
--- NOTE | 2019-11-05 11:28 | NUR ---
PATIENT LEFT FOR MRCP AT THIS TIME VIA WHEELCHAIR IN STABLE CONDITION.
[2019-11-05 11:29] VITALS: BP 127/62
--- NOTE | 2019-11-05 12:10 | NUR ---
PATIENT BACK FROM [facility] IN STABLE CONDITION. CALL LIGHT IN REACH WILL CONTINUE TO MONITOR PATIENT.
[2019-11-05] MEDS: SIMETHICONE 80 MG CHEW PO PRN (15:51)
--- NOTE | 2019-11-05 15:58 | Diagnostic Imaging Report ---
MRCP (magnetic resonance cholangiopancreatography) HISTORY: Dilated common bile duct Comparison: CT abdomen and pelvis 11/03/2019 and 09/28/2019 and 03/31/2018 Technique: Multiplanar and multisequence MRI images of the abdomen were obtained without contrast. Three-dimensional reconstructed images of the biliary tree are also reviewed. FINDINGS: Examination is technically limited by patient motion. The common bile duct is enlarged, measuring up to 18 mm in caliber. Central intrahepatic biliary dilation is noted. No definitive intrinsic or extrinsic defect is identified within the biliary system. No pancreatic ductal dilation. The gallbladder demonstrates no intraluminal defect, wall thickening, or pericholecystic fluid. No mass is identified in the region of the ampulla or pancreatic head. Unremarkable appearance of the liver, pancreas, spleen, adrenal glands, and kidneys. The visualized bowel loops appear normal in caliber. No free fluid or lymphadenopathy is seen within the abdomen. Impression: Enlarged common bile duct and central intrahepatic biliary dilation, without visualized obstructive lesion. The caliber of the common bile duct is similar to previous CT examinations dating back to 03/31/2018. Recommend correlation with serum bilirubin levels to assess the need for further evaluation with ERCP. Signed by: Radames King MD on 11/05/2019 3:55 PM
[2019-11-05 16:30] VITALS: BP 140/69
[2019-11-05] MEDS: ACETAMINOPHEN/CODEINE 300MG - 30MG TAB PO PRN (19:49)
[2019-11-05 20:00] VITALS: BP 120/68
[2019-11-05] MEDS: SIMVASTATIN 40 MG TAB PO SCH (21:22)
[2019-11-05] MEDS: CARBAMAZEPINE 200 MG TAB PO SCH (21:22)
[2019-11-05] MEDS: METOPROLOL TARTRATE 25 MG TAB PO SCH (21:23)
[2019-11-05] MEDS: LISINOPRIL 10 MG TAB PO SCH (21:23)
[2019-11-05] MEDS: PHENAZOPYRIDINE HCL 100 MG TAB PO SCH (23:11)
[2019-11-06] VITALS (7 sets, daily range): BP systolic 108–139; BP diastolic 50–79
[2019-11-06] MEDS ORDERED: PROMETHAZINE 12.5MG/ NACL 0.9% 12.5 MG/50 ML BAG IV ONE (01:00)
[2019-11-06] MEDS: SODIUM CHLORIDE 0.9% 1000ML 1,000 ML IV SCH ×4 (03:41→23:37)
[2019-11-06] MEDS: MORPHINE SULFATE INJ 4 MG/ML INJ 1ML IV PRN ×2 (05:42→11:06)
[2019-11-06] MEDS: ONDANSETRON HCL INJ 2MG/ML 2ML 2 MG/ML VIAL IV PRN ×3 (05:42→21:47)
[2019-11-06] MEDS: LEVOTHYROXINE SODIUM 75 MCG TAB PO SCH (06:00)
--- NOTE | 2019-11-06 08:07 | NUR ---
Patient left the floor to go to the OR. Patient is having EGD
[2019-11-06] MEDS ORDERED: IOPAMIDOL 300MG/ML 50ML INFUS..BTL IV ONE (09:16)
--- NOTE | 2019-11-06 10:30 | NUR ---
PT IS A 3 DAY OBS. PLAN EGD TODAY. PT FOR POSSIBLE DISCHARGE AFTER EGD. WILL AWAIT RESULTS.
--- NOTE | 2019-11-06 10:39 | Operative Report ---
DATE OF PROCEDURE: 11/06/2019 SURGEON: Grabiel Ríos MD PROCEDURE: EGD with polypectomy and biopsies. INDICATIONS FOR EGD: Upper abdominal pain, history of dark stools. MEDICATIONS: The patient was done under MAC, please see anesthesiologist's note. PROCEDURE IN DETAIL: With the patient in left lateral decubitus position, a flexible fiberoptic Olympus gastroscope was introduced into the esophagus under direct visualization without any difficulty. There were some patchy erythema noted in distal esophagus. The scope was then advanced with ease into the stomach and gastric stapling site was noted 5 cm distal to the GE junction, it was intact and was patent. Some debris and pills were trapped above the stapling site. The scope was then advanced into the distal stomach and approximately 3.5 cm raised nodular area was noted along the greater curvature and multiple biopsies were obtained and some were sent for frozen section. One polyp approximately 5 mm was noted in the body of the stomach greater curvature and that was removed per snare electrocautery. Mucosa overlying the antrum revealed some patchy areas of erythema. Pylorus was of normal contour and shape, it was intubated with ease and the scope was advanced all the way to the second portion of the duodenum. The ampulla was identified. It was suboptimally visualized with the forward viewing scope, but whatever was visualized of the ampulla appeared to be within normal limits. The scope was then withdrawn slowly. Mucosa overlying the rest of the second portion and the duodenal bulb appeared to be within normal limits. The scope was then withdrawn back into the stomach and retroflexed and the area below the stapling site was suboptimally visualized, it could not be distended optimally despite adequate insufflation as the patient was belching the insufflated air. It appeared nodular and somewhat friable, but there were no obvious masses or tumors were noted. The scope was subsequently withdrawn. The patient tolerated the procedure well. IMPRESSION: 1. Distal esophagitis, mild. 2. Status post gastric stapling. Stapling site intact, patent, 5 cm distal to the GE junction. Some debris and some pills were noted, trapped above the gastric stapling site. 3. Large focal raised nodular area, body of stomach, greater curvature distal to the stapling site, extensively biopsied and biopsies sent for both frozen and permanent sections. 4. Gastric polyp, body of greater curvature, removed per snare electrocautery. PLAN: Follow up histology. Continue PPI therapy. If biopsies were unremarkable, then probably a repeat EGD with additional biopsies may be in order. Grabiel Ríos MD [facility] [place]/MODL /[id number] cc: Adam Ríos MD
--- NOTE | 2019-11-06 10:43 | NUR ---
Per Dr. Massimo Ríos, keep patient on clear liquid diet for now until he sees her later.
[2019-11-06] MEDS ORDERED: PANTOPRAZOLE 40 MG 10ML VIAL IV ONE (10:55)
[2019-11-06] MEDS: METOPROLOL SUCCINATE 50 MG TAB XL PO SCH (11:01)
[2019-11-06] MEDS: LORATADINE 10 MG TAB PO SCH (11:01)
[2019-11-06] MEDS: POTASSIUM CHLORIDE 10MEQ EA PO SCH ×2 (11:01→16:47)
[2019-11-06] MEDS: SUCRALFATE 1 GM TAB PO SCH ×3 (11:01→21:46)
[2019-11-06] MEDS: METRONIDAZOLE 500MG/NS 100ML 100 ML IV SCH ×2 (11:01→16:37)
[2019-11-06] MEDS: BUSPIRONE HCL 5 MG TAB PO SCH ×3 (11:01→21:46)
[2019-11-06] MEDS: FERROUS SULFATE 325 MG TAB PO SCH ×2 (11:01→16:38)
[2019-11-06] MEDS: PHENAZOPYRIDINE HCL 100 MG TAB PO SCH ×3 (11:01→21:47)
[2019-11-06] MEDS: PANTOPRAZOL 40MG/SOD CHL 0.9% 50 ML IV SCH ×3 (13:00→20:20)
--- NOTE | 2019-11-06 14:53 | NUR ---
Patient has c/o left hand going numb and says it has happened at home of and on for awhile , also reports chills but is afrebile at 98.8, she reports throbbing in her neck. Dr Kevin Ríos made aware and no new orders received at this time. Patient was offered prn po medication for pain in neck but declined.
--- NOTE | 2019-11-06 15:43 | NUR ---
CALL TO DR. Arnel BOLAÑOS REGARDING OBS STATUS. AWAITING CALL BACK.
[2019-11-06] MEDS: ACETAMINOPHEN/CODEINE 300MG - 30MG TAB PO PRN (16:38)
[2019-11-06] MEDS ORDERED: GLUCAGON FOR INJ 1 MG VIAL ONE (17:26)
[2019-11-06] MEDS ORDERED: PROPOFOL IV EMULSION 10 MG/ML 50 ML VIAL ONE (17:26)
--- NOTE | 2019-11-06 20:07 | Consultation ---
DATE OF CONSULTATION: 11/06/2019 Cardiac Consultation REASON FOR CONSULTATION: Chest pain. HISTORY OF PRESENT ILLNESS: A delightful 79-year-old lady was known with longstanding history of diabetes mellitus with end-organ damage, hypertension, chronic atrial fibrillation, coronary artery disease, hypercholesteremia, chronic hoarse voice, severe GERD, degenerative joint disease, venous insufficiency, debility, and several other health problems. The patient seen and evaluated in the emergency room for shortness of breath and not feeling well. She was given some antibiotics with diagnosis of possible upper respiratory tract infection or UTI. She is not quite sure about the diagnosis. After that, she took some antibiotics. She felt very weak, having nausea, vomiting, and she is very ill. She called Dr. Ríos and she came to the emergency room. She is admitted for further management. Initial workup showed dilated common bile duct and the patient was having quite a lot of GI symptoms. The patient taken off her warfarin. She was observed. She was treated and she had EGD, which showed gastritis and achalasia, and chronic changes. The patient also complaining of chest pain. Her chest pain seems to be atypical for coronary artery disease. It is very vague. She does have also back problem and she got leg pain and she is not feeling well. She is still nauseated. There is no hematemesis. There is no melena. The patient is very debilitated, very weak, unable to do much of activity. She is using a walker to walk around. Regarding her chest pain, she cannot describe it. It is very vague. It is more of GERD and GI symptoms. She does have nausea, vomiting. She does have lower abdominal pain and diffuse abdominal pain. There is no orthopnea. There is no paroxysmal nocturnal dyspnea. There is no syncope or presyncope. MEDICATIONS: Home medications are warfarin 5 mg daily which is on hold, Crestor 10 mg a day, metoprolol succinate ER 50 mg in the morning, 25 mg in the evening, lisinopril 5 mg a day, Lasix 40 mg a day, levothyroxine 150 mcg a day, Phazyme 1 tablet four times a day, calcium and vitamin D, Soma, hydrocodone, BuSpar, Nasacort, ferrous gluconate, potassium chloride 10 mEq a day, Zyrtec, iron, Protonix. Following admission, the patient also on Flagyl and Carafate added to her medical regimen. Warfarin is on hold. ALLERGIES: A LOT OF MEDICATION INCLUDING KEFLEX, MACROBID, TALWIN, PENICILLIN, SULFA, XARELTO, LEVAQUIN, CIPRO, HEPARIN, CRESTOR HIGHER DOSE WHICH SHE WAS UNABLE TO TOLERATE, AMOXICILLIN. PAST MEDICAL HISTORY: 1. Chronic atrial fibrillation. 2. Coronary artery disease, latest cardiac catheterization was in 2009 with significant disease of bifurcating diagonal. 3. Hypertension. 4. Hypercholesterolemia. 5. Hypothyroidism. 6. COPD. 7. Chronic hoarse voice with difficulty swallowing with right vocal cord paralysis. 8. History of carcinoid tumor. 9. Achalasia. 10. Peripheral neuropathy. 11. History of pancreatitis. 12. Left knee problem. 13. Venous insufficiency. 14. Left foot osteomyelitis. 15. Charcot disease. 16. Urinary tract incontinence. 17. Repeated urinary tract infection. PAST SURGICAL HISTORY: 1. Right cataract eye surgery. 2. Thyroidectomy. 3. Gastroplasty. 4. Tonsillectomy. 5. Right foot surgery. 6. Hemorrhoid surgery. 7. Cataract surgery. 8. Cervical laminectomy, complicated by hoarse voice and paralysis of vocal cord. 9. Cervical surgery. 10. Right rotator cuff surgery. 11. Right foot surgery. 12. Left knee surgery. SOCIAL HISTORY: She is single. She stopped smoking in 1977. She is not alcohol drinker. FAMILY HISTORY: Father at age 73 with myocardial infarction. Mother of old age at age 91. She lost one of her brothers to diabetes mellitus and CVA complication and coronary artery disease. REVIEW OF SYSTEMS: GENERAL: Weakness, debility, poor appetite. HEENT: Chronic hoarse voice. PULMONARY: Shortness of breath on exertion. No pleuritic chest pain. CARDIAC: Easy fatigability, shortness of breath on exertion on minimal activity. GI: Severe symptoms including GERD, abdominal pain, discomfort, frequent constipation, dark stool at time. HEMATOLOGY: Easy bruising. : Increased frequency of urination. MUSCULOSKELETAL: Bilateral knee pain. PERIPHERAL VASCULAR: Chronic swelling of the lower extremities. NEUROLOGICAL: Back problem. No localized deficits. No seizure activity. PHYSICAL EXAMINATION: VITAL SIGNS: Height of 5 feet 6 inches, weight of 165 pounds, blood pressure 130/70, heart rate of 70 per minute, irregular rate of atrial fibrillation, respiratory rate of 18. HEENT: Remarkable for hoarse voice. NECK: No lymphadenopathy. No thyromegaly. CHEST: Decreased air entry. Decreased lung expansion. HEART: PMI, 5th left intercostal space. Normal first and second heart sounds. ABDOMEN: Soft with no organomegaly. No abdominal bruits. EXTREMITIES: Left knee with scar of surgery. Bilateral edema, left more than the right. Decreased feet pulses. NEUROLOGIC: Awake, alert, oriented. Abnormal gait except. LABORATORY DATA: CK and CK-MB on admission were mildly elevated, but troponin is normal. Repeated troponins are all normal and CK and CK-MB went back to normal. Electrolytes initially showed creatinine of 1.1. Low sodium at 130. Lipase is normal. CBC showed white blood cell count of 5.4, hemoglobin of 10.5, hematocrit 31%, platelet count of 167,000. EKG; AFib with nonspecific ST changes. Rate controlled. IMPRESSION AND PLAN: 1. Admitted with GI presentation. The patient had EGD and she is also anemic. She will have colonoscopy. She does have a dilated common bile duct. Negative MRCP. Under the care of GI service. 2. Chronic atrial fibrillation. 3. Coronary artery disease with stable angina. 4. Debility. 5. Hypothyroidism. 6. Hypercholesterolemia. 7. Degenerative joint disease. 8. Hypertension. 9. Depression. 10. Hypothyroidism. Cardiac bowen, my recommendation, the patient seems to be on appropriate medication. The patient is cleared for her colonoscopy for completeness of her workup and to address her problem. Cardiac bowen, my recommendation is medical therapy. Pending on her course, further steps to be done. All the questions are answered. The patient verbalized understanding. We will follow patient with you. MD JIMENA Martinez/[facility] /[id number]
[2019-11-06] MEDS: METOPROLOL TARTRATE 25 MG TAB PO SCH (21:47)
[2019-11-06] MEDS: LISINOPRIL 10 MG TAB PO SCH (21:47)
[2019-11-06] MEDS: CARBAMAZEPINE 200 MG TAB PO SCH (21:47)
[2019-11-06] MEDS: SIMVASTATIN 40 MG TAB PO SCH (21:47)
[2019-11-06] MEDS: SIMETHICONE 80 MG CHEW PO PRN (21:57)
[2019-11-06] MEDS ORDERED: MORPHINE SULFATE INJ 4 MG/ML INJ 1ML IV STA (23:18)
[2019-11-06] MEDS: CITRATE OF MAGNESIA 300ML BOTTLE PO PRN (23:38)
[2019-11-07] MEDS: PANTOPRAZOL 40MG/SOD CHL 0.9% 50 ML IV SCH ×3 (01:45→14:10)
[2019-11-07] MEDS: SODIUM CHLORIDE 0.9% 1000ML 1,000 ML IV SCH (03:23)
[2019-11-07 04:00] VITALS: BP 121/60
[2019-11-07] MEDS: CITRATE OF MAGNESIA 300ML BOTTLE PO PRN (04:20)
[2019-11-07 05:57] LABS: BASOPHILS % 0.4 % (0.0-1.0); EOSINOPHILS # (AUTO) 0.1 (0.0-0.4); EOSINOPHILS % 0.5 % (0.0-6.0); HEMATOCRIT 35.7 % (34.2-44.1); HEMOGLOBIN 11.8 g/dL (12.0-16.0); LYMPHOCYTES # (AUTO) 1.7 (1.0-3.2); MEAN CORPUSCULAR HEMOGLOBIN 32.2 pg (28-32); MEAN CORPUSCULAR HGB CONC 33.1 g/dL (31-35); MEAN CORPUSCULAR VOLUME 97.5 fL (81-99); MONOCYTES # (AUTO) 0.8 (0.2-0.8); NEUTROPHILS # (AUTO) 8.5 (2.1-6.9); NEUTROPHILS % 76.7 % (38.7-80.0); PLATELET COUNT 233 x10e3/uL (140-360); RED BLOOD COUNT 3.66 x10e6/uL (3.6-5.1); RED CELL DISTRIBUTION WIDTH 13.5 % (11.7-14.4)
[2019-11-07] MEDS ORDERED: LEVOTHYROXINE SODIUM 100 MCG TAB PO SCH (06:00)
[2019-11-07 06:03] LABS: ALANINE AMINOTRANSFERASE 18 IU/L (0-55); ALBUMIN 3.7 g/dL (3.5-5.0); ALBUMIN/GLOBULIN RATIO 1.1 (0.8-2.0); ALKALINE PHOSPHATASE 92 IU/L (40-150); ANION GAP 8.3 mmol/L (8-16); BLOOD UREA NITROGEN < 5 mg/dL (7-26); BUN/CREATININE RATIO 5 (6-25); CALCIUM 7.7 mg/dL (8.4-10.2); CARBON DIOXIDE 21 mmol/L (22-29); CHLORIDE 110 mmol/L (98-107); CHOL/HDL RATIO 2.9 (3.0-3.6); CHOLESTEROL 138 MD/DL (0-199); CREATININE, SERUM 0.93 mg/dL (0.57-1.11); EST GLOMERULAR FILTRATION RATE 58 ML/MIN (60-); GLUCOSE 94 mg/dL (74-118); HDL CHOLESTEROL 48 MG/DL (40-60); POTASSIUM 4.3 mmol/L (3.5-5.1); SODIUM 135 mmol/L (136-145)
[2019-11-07 06:16] LABS: THYROID STIMULATING HORMONE 9.738 uIU/mL (0.350-4.940)
[2019-11-07] MEDS: ONDANSETRON HCL INJ 2MG/ML 2ML 2 MG/ML VIAL IV PRN ×2 (06:36→12:00)
[2019-11-07 06:42] LABS: LDL CHOLESTEROL 63 MG/DL (60-130); TRIGLYCERIDES 135 MG/DL (0-149)
[2019-11-07 07:38] VITALS: BP 113/59
[2019-11-07 08:30] VITALS: BP 113/59
[2019-11-07] MEDS: METRONIDAZOLE 500MG/NS 100ML 100 ML IV SCH (09:32)
[2019-11-07] MEDS: FERROUS SULFATE 325 MG TAB PO SCH (09:37)
[2019-11-07] MEDS: SUCRALFATE 1 GM TAB PO SCH ×2 (09:37→12:57)
[2019-11-07] MEDS: POTASSIUM CHLORIDE 10MEQ EA PO SCH (09:37)
[2019-11-07] MEDS: PHENAZOPYRIDINE HCL 100 MG TAB PO SCH (09:37)
[2019-11-07] MEDS: BUSPIRONE HCL 5 MG TAB PO SCH (09:37)
[2019-11-07] MEDS: LORATADINE 10 MG TAB PO SCH (09:37)
[2019-11-07] MEDS: METOPROLOL SUCCINATE 50 MG TAB XL PO SCH (09:39)
--- NOTE | 2019-11-07 10:09 | NUR ---
Patient is set to go for a colonoscopy today. Dr. Arnel Ríos called to check in on patient, patient is having green water stools, not clear. Dr. Arnel Ríos request that patient have a soap brianna enema until clear completely. Will do as doctor ordered and follow up.
[2019-11-07] MEDS ORDERED: FENTANYL CITRATE/PF 100MCG/2 ML INJ ONE (14:10)
--- NOTE | 2019-11-07 16:39 | NUR ---
Patient returned from colonscopy, assisted to bed with this assembly instructions writer and PACU nurse. Patient had no complaints at this time. Vitals were as follows- 130/62, HR- 62, Temp- 96.8, O2- 99% RA. Patient was advanced to Gi Soft diet. Patient's doctor was called, per his request, to see about possible discharge home.
[2019-11-07 16:43] VITALS: BP 130/62
--- NOTE | 2019-11-07 17:26 | NUR ---
Patient received discharge order from Dr. Arnel Ríos at 1700. Patient's IV was discontinued at 1720. Patient is very upset that Dr. India Ríos did not come show her the results and tell her the size and location of the polyp removed. This junior underwriter showed and explained it to patient but she was not satisfied with this junior underwriter. Patient was told she could contact Dr. Massimo Ríos for deeper explanation. Patient was wheeled to car at 1733. No other issues or complaints at this time.
--- NOTE | 2019-11-07 20:25 | Operative Report ---
DATE OF PROCEDURE: 11/07/2019 SURGEON: Grabiel Ríos MD PROCEDURE: Colonoscopy with polypectomy and hot biopsy. INDICATION FOR COLONOSCOPY: History of bright red blood per rectum. MEDICATIONS: The patient was done under MAC, please see anesthesiologist's note. PROCEDURE IN DETAIL: With the patient in left lateral decubitus position, the flexible fiberoptic Olympus colonoscope was inserted into the rectum with ease and advanced all the way to the cecum. The scope was then withdrawn slowly. Mucosa overlying the cecum and ascending colon appeared to be within normal limits. One polyp was removed per cold snare polypectomy and also per hot biopsy forceps and site was hemoclipped x1. Descending, sigmoid, and rectum grossly appeared to be within normal limits. The scope was then retroflexed into the distal rectum. Small internal hemorrhoids were noted, none of which was actively bleeding. The scope was then straightened out, it was subsequently withdrawn. The patient tolerated the procedure well. IMPRESSION: 1. Transverse colon polyp, cold snared, and hot biopsied, site hemoclipped x1. 2. Small internal hemorrhoids. PLAN: Follow up histology. Initiate GI soft diet. The patient might benefit from a followup colonoscopy in 5 years. Grabiel Ríos MD [facility] [place]/JOHN PAUL /[id number] cc: Adam Ríos MD
== END 2019-11-07 17:43 | disposition home or self-care (01) ==
LOC: ER 20:11 → ERHOLD 23:02 → MED/SURG 23:46
DX: K52.9 Noninfective gastroenteritis and colitis, unspecified (principal); K63.5 Polyp of colon; K31.7 Polyp of stomach and duodenum; K21.9 Gastro-esophageal reflux disease without esophagitis; K31.89 Other diseases of stomach and duodenum; K20.9 Esophagitis, unspecified; K22.0 Achalasia of cardia; K83.8 Other specified diseases of biliary tract; K64.8 Other hemorrhoids; K59.00 Constipation, unspecified; Z98.84 Bariatric surgery status; E87.6 Hypokalemia; I10 Essential (primary) hypertension; J44.9 Chronic obstructive pulmonary disease, unspecified; I48.20 Chronic atrial fibrillation, unspecified; E78.00 Pure hypercholesterolemia, unspecified; E03.9 Hypothyroidism, unspecified; D64.9 Anemia, unspecified; I25.118 Atherosclerotic heart disease of native coronary artery with other forms of angina pectoris; R53.81 Other malaise; M19.90 Unspecified osteoarthritis, unspecified site; E78.5 Hyperlipidemia, unspecified; F32.9 Major depressive disorder, single episode, unspecified; Z82.49 Family history of ischemic heart disease and other diseases of the circulatory system; Z82.3 Family history of stroke; Z83.3 Family history of diabetes mellitus; Z88.0 Allergy status to penicillin; Z88.1 Allergy status to other antibiotic agents; Z88.8 Allergy status to other drugs, medicaments and biological substances
CPT/HCPCS: 36415 ×3; 43239; 43251; 45385; 74177; 74181; 80053 ×3; 80061; 81001; 82270; 82550 ×2; 82553 ×2; 83690; 84443; 84484 ×2; 85025 ×3; 85610; 88305 ×2; 88312; 88331; 93005 ×2; 96360; 96361 ×4; 99284; C9113; G0378 ×5; J1610; J2270 ×4; J2405 ×5; J2704; J3010; J7030 ×4; Q9967; S0164 ×2; 45378

== ENCOUNTER 2020-06-16 16:26 | Emergency (ER) | payer MEDICARE ==
[~2020-06-16] VITALS: Ht 167.6 cm; Wt 79.4 kg
[~2020-06-16 16:26] MED LIST changes: +KLOR-CON 1010 MEQ PO; +METOPROLOL TART25 MG PO
--- OUTSIDE RECORDS SUMMARY | 2020-06-16 17:19 | XMS REPORT | Continuity of Care Document ---
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 Active Problem 10/17/2018 Karishma Donaldson Persistent atrial fibrillation Active Problem Karishma Donaldson Vocal cord paralysis, unilateral complete Active Problem 10/17/2018 Karishma Donaldson 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 10/17/2018 Karishma Donaldson Lower abdominal pain Active Problem 10/17/2018 Karishma Donaldson Hypercholesteremia Active Problem 10/17/2018 Karishma Donalsdon Iron deficiency anemia, unspecified iron deficiency Active Problem 10/17/2018 Karishma Donaldson Left leg pain Active Problem 10/17/2018 Karishma Donaldson Atherosclerotic heart disease of [place] coronary artery without angina pectoris Active Problem 10/17/2018 Karishma Donaldson Shortness of breath Active Problem 10/17/2018 Karishma Donaldson LVH (left ventricular hypertrophy) due t o hypertensive disease, without heart failure Active Problem 10/17/2018 Karishma Donaldson Hypothyroidism Active Problem 10/17/2018 Karishma Donaldson Leg edema, left Active Problem 04/05/2018 Karishma Donaldson Chronic osteomyelitis of left foot Active Problem Karishma Donaldson Chronic atrial fibrillation Ac tive Problem Karishma Donaldson CAD, [place] Coronary Artery Ac tive Problem 07/2014 Karishma Donaldson Angina Active Problem 10/23/2014 Karishma Donaldson Atrial fibrillation Active Problem 10/23/2014 Karishma Donaldson Pre-operative cardiac clearance Active Problem 07/2014 Karishma Donaldson Chest Pain Active Problem 10/23/2014 Karishma Donaldson Pain, limb, left Active Problem 03/03/2016 Karishma Donaldson 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 Active Prob claudia 10/23/2014 Karishma Donaldson Shortness of breath Active Problem 10/23/2014 Karishma Donaldson Palpitations Active Problem 10/23/2014 Karishma Donaldson Leg edema, left Active Problem 10/23/2014 Karishma Donaldson Atherosclerosis of [place] arteries of th e extremities with intermittent claudication Active Problem 10/23/2014 Karishma Donaldson Hyperglyceridemia Active Problem 10/23/2014 Karishma Donaldson Abnormal EKG Active Problem 10/23/2014 Karishma Donaldson Neck pain on right side Active Problem 08/30/2015 Karishma Donaldson Hypercholesteremia Active Problem 03/03/2016 Karishma Donaldson Pain of right lower extremity Active Problem Karishma Donaldson Edema extremities Active Problem 10/17/2018 Karishma Donaldson Medications Medication Details Route Status Patient Instructions Ordering Provider Order Date Source Klor-Con 10 1 tablet with food Orally Active 10 ME[facility] Karishma Donaldson Klor-Con 10 1 tablet with food Orally Active 10 MEQ Orally three times a day (tid) [facility] [place] 11/09/2017 Karishma Donaldson Potassium Chloride ER 1 tablet Orally Active 10 MEQ Orally Twice a day [facility] [place] 11/15/2016 Karishma Donaldson Potassium Chloride 1 tablet Orally Active 10 MEQ Orally twice a day (bid) [facility] [place] 02/28/2014 Karishma Donaldson Potassium Chloride 1 tablet Orally Active 20 MEQ Orally Once a day [facility] [place] 02/28/2014 Karishma Donaldson Ferrous Gluconate 1 tablet Orally Active 324 (38 Fe) MG Orally twice a day (bid[facility] Ferrous Gluconate 1 tablet Orally Active 324 (38 Fe) MG Orally twice a day (bid) [facility] Indapamide 1 tablet every morn ing Orally Active 2.5 MG Orally Once a day [facility] [place] Karishma Donaldson Furosemide 1 tablet Orally Active 40 MG Orally [facility] Zvtdsiholxb-HAIM-Kwhqnqy Prod as directed Orally Active 10-325 MG Orally PRN Anika Donaldson Nasacort AQ 1 puff in each nos tril Nasally Active 55 MCG/ACT Nasally Once a day Anika Donaldson Pantoprazole Sodium 1 tablet Orally Active 40 MG Orally TID Anika Donaldson BuSpar 1 tablet Orally Active 10 mg Orally three time s a day (tid) Anika Donaldson Multivitamins as directed NA Active Once a day Anika Donaldson Carbamazepine 2tablet Orally Active 200 MG Orally once a da y Anika Donaldson Levothyroxine Sodium 1 tablet on an empty stomach in the morning Orally Active 150 MCG Orally Once a day Rex Donaldson Toprol XL TAKE 1 TABLET BY TWICE DAILY Orally Active 50 MG Orally 50 MG in Am, 25mg PM Ainka Donaldson Coumadin 1 tablet Orally Active 5 MG Orally Every day tuesday Anika Donaldson Soma 1 tablet as needed Orally Active 250 MG Orally every 6 h ours Anika Donaldson Premarin 1 tablet Orally Active 1.25 MG/0.9 mg Orally E very other day Anika Donaldson Tramadol HCl 1 tablet as needed Orally Active 50 mg Orally twice a day (bid) Anika Donaldson Potassium Chloride ER 1 tablet Orally Active 10 MEQ Orally Three times a day Anika Donaldson Potassium Chloride ER 1 tablet Orally Active 10 MEQ Orally Every 3rd day (q72hrs) Anika Donaldson Allergies, Adverse Reactions, Alerts Substance Category Reaction Severity Reaction type Status Date Reported Comments Source Xarelto Adverse Reaction Could not tolerate Adverse Reaction Active 02/27/2014 Karishma Donaldson sulfa Adverse Reaction Swelling Adverse Reaction Active 02/27/2014 Karishma Donaldson Penicillin Adverse Reaction Swelling Adverse Reaction Active 02/27/2014 Karishma Donaldson Talwin Adverse Reaction Swelling Adverse Reaction Active 02/27/2014 Karishma Donaldson Macrobid Adverse Reaction Swelling Adverse Reaction Active 02/27/2014 Karishma Donaldson Keflex Adverse Reaction Swelling Adverse Reaction Active 02/27/2014 Karishma Donaldson Immunizations No Data Provided for This Section Results No Data Provided for This Section Pathology Reports No Data Provided for This Section Diagnostic Reports No Data Provided for This Section Consultation Notes No Data Provided for This Section Discharge Summaries No Data Provided for This Section History and Physicals No Data Provided for This Section Vital Signs Vital Sign Value Date Comments Source Weight 191 02/27/2014 Karishma Donaldson Height 66 0 02/27/2014 Karishma Donaldson Temperature Oral (F) 98.2 F 02/27/2014 Karishma Donaldson Heart Rate 92 02/27/2014 Karishma Donaldson Diastolic (mm Hg) 65 02/27/2014 Karishma Donaldson Systolic (mm Hg) 120 02/27/2014 Karishma Donaldson Encounters Location Location Details Encounter Type Encounter Number Reason For Visit Attending Provider ADM Date DC Date Status Source MD LETHA Cool Unknown [id number] 02/28/20 14 02/27/2014 MD LETHA Rogers Unknown [id number] 02/28/20 14 02/27/2014 MD LETHA Rogers Unknown [id number] 02/28/20 14 02/27/2014 MD LETHA Rogers Unknown [id number] 02/28/20 14 02/27/2014 MD LETHA Rogers Unknown [id number] 02/28/20 14 02/27/2014 MD LETHA Rogers Unknown [id number] 02/28/20 14 02/27/2014 MD LETHA Rogers Unknown [id number] 02/28/20 14 02/27/2014 Karishma Donaldson MD PA Unknown [id number] 02/28/20 14 02/27/2014 Karishma Donaldson MD PA Unknown [id number] 02/28/20 14 02/27/2014 Karishma Donaldson MD PA Unknown [id number] 02/28/20 14 02/27/2014 Karishma Donaldson MD PA Unknown [id number] 02/28/20 14 02/27/2014 Karishma Donaldson MD PA Unknown [id number] 02/28/20 14 02/27/2014 Karishma Donaldson MD PA Unknown [id number] 02/29/20 14 02/28/2014 Karishma Donaldson MD PA Unknown [id number] 02/29/20 14 02/28/2014 Karishma Donaldson MD PA Unknown [id number] 02/29/20 14 02/28/2014 Karishma Donaldson MD PA Unknown [id number] 02/29/20 14 02/28/2014 Karishma Donaldson MD PA Unknown [id number] 02/29/20 14 02/28/2014 Karishma Donaldson MD PA Unknown [id number] 02/29/20 14 02/28/2014 Karishma Donaldson MD PA Unknown [id number] 02/29/20 14 02/28/2014 Karishma Donaldson MD PA Unknown [id number] 02/29/20 14 02/28/2014 Karishma Donaldson MD PA Unknown [id number] 02/29/20 14 02/28/2014 Karishma Donaldson MD PA Unknown [id number] 02/29/20 14 02/28/2014 Karishma Donaldson MD PA Unknown [id number] 02/29/20 14 02/28/2014 Karishma Donaldson MD PA Unknown [id number] 02/29/20 14 02/28/2014 Karishma Donaldson MD PA Unknown [id number] 03/05/20 14 03/05/2014 Karishma Donaldson MD PA Unknown [id number] 03/05/20 14 03/05/2014 Karishma Donaldson MD PA Unknown [id number] 03/05/20 14 03/05/2014 Karishma Donaldson MD PA Unknown [id number] 03/05/20 14 03/05/2014 Karishma Donaldson MD PA Unknown [id number] 03/05/20 14 03/05/2014 Karishma Donaldson MD PA Unknown [id number] 03/05/20 14 03/05/2014 Karishma Donaldson MD PA Unknown [id number] 03/05/20 14 03/05/2014 Karishma Donaldson MD PA Unknown [id number] 03/05/20 14 03/05/2014 Karishma Donaldson MD PA Unknown [id number] 03/05/20 14 03/05/2014 Karishma Donaldson MD PA Unknown [id number] 03/05/20 14 03/05/2014 Karishma Donaldson MD PA Unknown [id number] 03/05/20 14 03/05/2014 Karishma Donaldson MD PA Unknown [id number] 03/05/20 14 03/05/2014 Karishma Donaldson MD PA Update Demographics - Personal Info [id number] 06/13/2014 06/13/2014 Karishma Donaldson MD PA Update Demographics - Personal Info [id number] 06/13/2014 06/13/2014 Karishma Donaldson MD PA Update Demographics - Personal Info [id number] 06/13/2014 06/13/2014 Karishma Donaldson MD PA Update Demographics - Personal Info [id number] 06/13/2014 06/13/2014 Karishma Donaldson MD PA Update Demographics - Personal Info [id number] 06/13/2014 06/13/2014 Karishma Donaldson MD PA Update Demographics - Personal Info [id number] 06/13/2014 06/13/2014 Karishma Donaldson MD PA Update Demographics - Personal Info [id number] 06/13/2014 06/13/2014 Karishma Donaldson MD PA Update Demographics - Personal Info [id number] 06/13/2014 06/13/2014 Karishma Donaldson MD PA Update Demographics - Personal Info [id number] 06/13/2014 06/13/2014 Karishma Donaldson MD PA Unknown [id number] 08/22/19 15 08/22/2014 Karishma Donaldson MD PA Unknown [id number] 08/22/19 15 08/22/2014 Karishma Donaldson MD PA Unknown [id number] 08/22/19 15 08/22/2014 Karishma Donaldson MD PA Unknown [id number] 08/22/19 15 08/22/2014 Karishma Donaldson MD PA Unknown [id number] 08/22/19 15 08/22/2014 Karishma Donaldson MD PA Unknown [id number] 08/22/19 15 08/22/2014 Karishma Donaldson MD PA Unknown [id number] 08/22/19 15 08/22/2014 Karishma Donaldson MD PA Unknown [id number] 08/22/19 15 08/22/2014 Karishma Donaldson MD PA Unknown [id number] 10/23/19 15 10/22/2014 Karishma Donaldson MD PA Unknown [id number] 10/23/19 15 10/22/2014 Karishma Donaldson MD PA Unknown [id number] 10/23/19 15 10/22/2014 Karishma Donaldson MD PA Unknown [id number] 10/23/19 15 10/22/2014 Karishma Donaldson MD PA Unknown [id number] 10/23/19 15 10/22/2014 Karishma Donaldson MD PA Unknown [id number] 10/23/19 15 10/22/2014 Karishma Donaldson MD PA Unknown [id number] 10/23/19 15 10/22/2014 Karishma Donaldson MD PA Unknown [id number] 10/23/19 15 10/22/2014 Karishma Donaldson MD PA Unknown [id number] 08/29/19 16 08/29/2015 Karishma Donaldson MD PA Unknown [id number] 08/29/19 16 08/29/2015 Karishma Donaldson MD PA Unknown [id number] 08/29/19 16 08/29/2015 Karishma Donaldson MD PA Unknown [id number] 08/29/19 16 08/29/2015 Karishma Donaldson MD PA Unknown [id number] 08/29/19 16 08/29/2015 Karishma Donaldson MD PA Unknown [id number] 08/29/19 16 08/29/2015 Karishma Donaldson MD PA Unknown [id number] 08/29/19 16 08/29/2015 Karishma Donaldson MD PA Unknown [id number] 02/26/20 16 02/26/2016 Karishma Donaldson MD PA Unknown [id number] 02/26/20 16 02/26/2016 Karishma Donaldson MD PA Unknown [id number] 02/26/20 16 02/26/2016 Karishma Donaldson MD PA Unknown [id number] 02/26/20 16 02/26/2016 Karishma Donaldson MD PA Unknown [id number] 02/26/20 16 02/26/2016 Karishma Donaldson MD PA Unknown [id number] 02/26/20 16 02/26/2016 Karishma Donaldson MD PA Unknown [id number] 03/02/20 16 03/02/2016 Karishma Donaldson MD PA Unknown [id number] 03/02/20 16 03/02/2016 Karishma Donaldson MD PA Unknown [id number] 03/02/20 16 03/02/2016 Karishma Donaldson MD PA Unknown [id number] 03/02/20 16 03/02/2016 Karishma Donaldson MD PA Unknown [id number] 03/02/20 16 03/02/2016 Karishma Donaldson MD PA Unknown [id number] 08/17/19 17 08/17/2016 Karishma Donaldson MD PA Unknown [id number] 08/17/19 17 08/17/2016 Karishma Donaldson MD PA Unknown [id number] 08/17/19 17 08/17/2016 Karishma Donaldson MD PA Unknown [id number] 08/17/19 17 08/17/2016 Karishma Donaldson MD PA Unknown [id number] 08/17/19 17 08/17/2016 Karishma Donaldson MD PA Unknown [id number] 08/17/19 17 08/17/2016 Karishma Donaldson MD PA Unknown [id number] 08/17/19 17 08/17/2016 Karishma Donaldson MD PA Unknown [id number] 08/17/19 17 08/17/2016 MD LETHA Rogers Unknown [id number] 08/17/19 17 08/17/2016 MD LETHA Rogers Unknown [id number] 08/17/19 17 08/17/2016 MD LETHA Rogers Unknown [id number] 09/03/19 17 09/03/2016 Karishma Donaldson Procedures No Data Provided for This Section Assessment and Plan No Data Provided for This Section Plan of Care No Data Provided for This Section Social History Social History Date Source Social History ElementQualifiersDate Rep orted Smoking . Status Former Smoker Quit in 1977Aug 03, 2016 Alcohol Use No. Aug 03, 2016 Alcohol Screening: Yes. Did you have a drink containing alcohol in the past year?: No, Points: 0, Interpretation: Negative Aug 03, 2016 Marital Status: single. Aug 03, 2016 Do you drink alcohol? No. Aug 03, 2016 Occupation: . 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
--- OUTSIDE RECORDS SUMMARY | 2020-06-16 17:20 | XMS REPORT | Continuity of Care Document ---
Author Author [facility] t Organization [facility] Address [address] [place] [address] Phone Unavailable Care Team Providers Care Patient Accounts Manager Name Role Phone PATO BOLAÑOS MD PCP BOLAÑOS, SOUHEIL Attphys Unavailable BOLAÑOS, SALOME Attphys Unavailable SWEET, A LAIRD Attphys Unavailable TUESDAY, RAUL Attphys Unavailable VANNESA, T JEAN-BAPTISTE Attphys Unavailable BOLAÑOS, SOUHEIL Admphys Unavailable Payers Payer Name Policy Type Policy Number Effective Date Expiration Date Kevin gonzalez [facility] [id number] 2019 00:00:00 [facility] Medicare A & B [id number] 1990 00:00:00 [facility] Problems Condition Name Condition Details Condition Category Status Onset Date Resolution Date Last Treatment Date Treating Clinician Comments Source Swelling of lower limb Leg swelling Problem Active [facility] Abnormal EKG Abno rmal EKG Active Problem 10/17/2018 Karishma Donaldson Problem Active 2018-10-17 02:45:03 Ericka Obregon 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 Active Problem 10/17/2018 Karishma Donaldson Problem A ctive 2018-10-17 02:45:03 Ericka gerber Persistent atrial fibrillation Persistent atrial fibrillation Active Problem 10/17/2018 Karishma Donaldson Problem Active 2018-10-17 02:45:03 Ericka Obregon Vocal cord paralysis, unilateral complete Vocal cord paralysis, unilateral complete Active Problem 10/17/2018 Karishma Donaldson Problem Active 2018-10-17 02:45:03 [facility] 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 10/17/2018 Karishma Donaldson Problem Active 2018-10-17 02:45:03 [facility] Lower abdominal pain Lowe r abdominal pain Active Problem 10/17/2018 Karishma Donaldson Problem Active 2018-10-17 02:45:03 [facility] Hypercholesteremia Hype rcholesteremia Active Problem 10/17/2018 Karishma Donaldson Problem Active 2018-10-17 02:45:03 [facility] Iron deficiency anemia, unspecified iron deficiency Iron deficiency anemia, unspecified iron deficiency Active Problem 10/17/2018 Karishma Donaldson Problem Active 2018-10-17 02:45:03 [facility] Left leg pain Left leg pain Active Problem 10/17/2018 Karishma Donaldson Problem Active 2018-10-17 02:45:03 [facility] Atherosclerotic heart disease of tejon coronary arter y without angina pectoris Atherosclerotic heart disease of te[place] coronary artery without angina pectoris Active Problem 10/17/2018 Karishma Donaldson Problem Active 2018-10-17 02:45:03 Hayde willson [place] Shortness of breath Shor tness of breath Active Problem 10/17/2018 Karishma Donaldson Problem Active 2018-10-17 02:45:03 [facility] LVH (left ventricular hypertrophy) due t o hypertensive disease, without heart failure LVH (left ventri cular hypertrophy) due to hypertensive disease, without heart failure Active Problem 10/17/2018 Karishma Donaldson Problem Active 2018-10-17 02:45:03 [facility] Hypothyroidism Hypo thyroidism Active Problem 10/17/2018 Karishma Donaldson Problem Active 2018-10-17 02:45:03 [facility] Chronic osteomyelitis of left foot Chronic osteomyelitis of left foot Active Problem 10/17/2018 Karishma Donaldson Problem Active 2018-10-17 02:45:03 [facility] Chronic atrial fibrillation Ch ronic atrial fibrillation Active Problem 10/17/2018 Karishma Donaldson Problem Active 2018-10-17 02:45:03 [facility] CAD, [place] Coronary Artery CA D, [place] Coronary Artery Active Problem 10/23/2014 Karishma Donaldson Problem Active 2014-10-23 02:45:06 [facility] Angina Gloria na Active Problem 10/23/2014 Karishma Donaldson Problem Active 2014-10-23 02:45:06 [facility] Atrial fibrillation Atri al fibrillation Active Problem 10/23/2014 Karishma Donaldson Problem Active 2014-10-23 02:45:06 [facility] Pre-operative cardiac clearance Pre-operative cardiac clearance Active Problem 10/23/2014 Karishma Donaldson Problem Active 2014-10-23 02:45:06 [facility] Chest Pain Ches t Pain Active Problem 10/23/2014 Karishma Navarrodi Problem Active 2014-10-23 02:45:06 [facility] Pain, limb, left Pain , limb, left Active Problem 03/03/2016 Karishma Donaldson Problem Active 2016-03-03 02:45:02 [facility] 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 Active Problem 10/23/2014 Karishma Donaldson Problem Active 20 06-11-00 02:45:06 [facility] Shortness of breath Shor tness of breath Active Problem 10/23/2014 Karishma Donaldson Problem Active 2014-10-23 02:45:06 [facility] Palpitations Palp itations Active Problem 10/23/2014 Karishma Navarrodi Problem Active 2014-10-23 02:45:06 [facility] Leg edema, left Leg edema, left Active Problem 10/23/2014 Karishma Donaldson Problem Active 2014-10-23 02:45:06 [facility] Atherosclerosis of tejon arteries of th e extremities with intermittent claudication Atherosclerosis of tejon arteries of the extremities with intermittent claudication Active Problem 10/23/2014 Karishma Donaldson Problem Active 2014-10-23 02:45:06 Tijordi umanzor [place] Hyperglyceridemia Hype rglyceridemia Active Problem 10/23/2014 Karishma Navarrodi Problem Active 2014-10-23 02:45:06 [facility] Abnormal EKG Abno rmal EKG Active Problem 10/23/2014 Karishma Navarrodi Problem Active 2014-10-23 02:45:06 [facility] Neck pain on right side Neck pain on right side Active Problem 08/30/2015 Karishma Donaldson Problem Active 20 09-09-05 03:46:49 [facility] Hypercholesteremia Hype rcholesteremia Active Problem 03/03/2016 Karishma Donaldson Problem Active 2016-03-03 02:45:02 [facility] Pain of right lower extremity Pain of right lower extremity Active Problem 10/17/2018 Karishma Donaldson Problem Active 2018-10-17 02:45:03 [facility] Edema extremities Nicanor a extremities Active Problem 10/17/2018 Karishma Donaldson Problem Active 2018-10-17 02:45:03 [facility] Allergies, Adverse Reactions, Alerts Allergy Name Allergy Type Status Severity Reaction(s) Onset Date Inacti ve Date Treating Clinician Comments Source Pentazocine Lactate Allergy to Substance Active PT. DO ESN'T REMEMBER EFFECT 2018-04-01 00:00:00 [facility] amoxicillin trihydrate Propensity to adverse reactions Active NAUSEA/VOMITING 2018-04-01 00:00:00 [facility] potassium clavulanate Propensity to adverse reactions Active NAUSEA/VOMITING 2018-04-01 00:00:00 [facility] Ofloxacin Allergy to Substance Active PT DOESN'T KIM MBER EFFECT. 2018-04-01 00:00:00 [facility] Pentazocine Lactate DA Active U 2016-07-05 00:00:00 [facility] Cephalexin Monohydrate DA Active U 2016-07-05 00:00:00 [facility] Penicillins DA Active U 2016-07-05 00:00:00 [facility] Sulfa (Sulfonamide Antibiotics) DA Active U 2016-07-05 00 :00:00 [facility] ciprofloxacin DA Active ND 2016-07-05 00:00:00 [facility] levofloxacin DA Active ND 2016-07-05 00:00:00 [facility] Penicillin Allergy to Substance Active Mild TONGUE SWELLS,M OUTH RASH 2015-02-14 00:00:00 [facility] Pentazocine Allergy to Substance Active Mild HEART FLUTTERS 20 06-02-24 00:00:00 [facility] Cephalexin Allergy to Substance Active Mild TONGUE SWELLS,M OUTH RASH 2015-02-14 00:00:00 [facility] Bacitracin Allergy to Substance Active Moderate RASH 2015-02-14 00:00:0 0 [facility] Clarithromycin Allergy to Substance Active Moderate RASH 2015-02-14 00:00:00 [facility] Levofloxacin Allergy to Substance Active Mild ligament prob lems 2015-02-14 00:00:00 [facility] Xarelto Xarelto Active Could not tolerate 2014-02-27 00:00:00 [facility] Penicillin Penicillin Active Swelling 2014-02-27 00:00:00 [facility] Talwin Talwin Active Swelling 2014-02-27 00:00:00 [facility] Macrobid Macrobid Active Swelling 2014-02-27 00:00:00 [facility] Keflex Keflex Active Swelling 2014-02-27 00:00:00 [facility] Nitrofurantoin Macrocrystal DA Active SV 2012-07-10 00:00: 00 [facility] nitrofurantoin DA Active SV 2012-07-10 00:00:00 [facility] Social History Social Habit Start Date Stop Date Quantity Comments Source Smoking 2016-08-03 00:00:00 2016-08-03 00:00:00 [facility] Medications Ordered Medication Name Filled Medication Name Start Date Stop Da te Current Medication? Ordering Clinician Indication Dosage Frequency Signature (SIG) Comments Components Source Ferrous Gluconate 2018-10-17 02:45:03 Yes Karishma Navarrodi 1 tablet [facility] Klor-Con 10 2017-12-14 00:00:00 Yes Karishma Nuñezoudi 1 tablet with food [facility] Klor-Con 10 2017-11-09 00:00:00 Yes Karishma Nuñezoudi 1 tablet with food [facility] Ferrous Gluconate 2016-12-16 02:45:09 Yes Karishma Nuñezoudi 1 tablet [facility] Potassium Chloride ER 2016-11-15 00:00:00 Yes Karishma sanchez 1 tablet [facility] Potassium Chloride ER 2016-08-21 03:47:26 Yes Karishma sanchez 1 tablet [facility] Potassium Chloride ER 2014-10-23 02:45:06 Yes Lokimelyssa Ramirez rouchandrakant 1 tablet [facility] Indapamide 2014-03-07 03:00:13 Yes Lokimelyssa Joaquinoudi 1 tablet every morning [facility] Furosemide 2014-03-07 03:00:13 Yes Karishma Jeroudi 1 tablet [facility] Rhsiiarvgxi-THSV-Gbtwnux Prod 2014-03-07 03:00:13 Yes Mo jose antonio Donaldson as directed [facility] Nasacort AQ 2014-03-07 03:00:13 Yes Lokimelyssa Melaniedi 1 puff in each nostril [facility] Pantoprazole Sodium 2014-03-07 03:00:13 Yes Lokimelyssa Joaquinoudi 1 tablet [facility] BuSpar 2014-03-07 03:00:13 Yes Karishma Nuñezoudi 1 tablet [facility] Multivitamins 2014-03-07 03:00:13 Yes Karishma Donaldson as directed [facility] Carbamazepine 2014-03-07 03:00:13 Yes Karishma Donaldson 2tablet [facility] Levothyroxine Sodium 2014-03-07 03:00:13 Yes Karishma Joaquin oudi 1 tablet on an empty stomach in the morning Hayde willson [place] Toprol XL 2014-03-07 03:00:13 Yes Karishma Nuñezreinaldo TAKE 1 TABLET BY MOUTH TWICE DAILY [facility] Coumadin 2014-03-07 03:00:13 Yes Karishma Joaquinoudi 1 tablet [facility] Soma 2014-03-07 03:00:13 Yes Karishma Nuñezoudi 1 ta blet as needed [facility] Premarin 2014-03-07 03:00:13 Yes Karishma Nuñezoudi 1 tablet [facility] Tramadol HCl 2014-03-07 03:00:13 Yes Karishma Nuñezoudi 1 tablet as needed [facility] Potassium Chloride 2014-02-28 00:00:00 Yes Karishma Nuñezoudi 1 tablet [facility] Potassium Chloride 2014-02-28 00:00:00 Yes Karishma Nuñezoudi 1 tablet [facility] Acetaminophen With Codeine (Tylenol With Codeine #3 Ta blet) 1 Each Tablet Acetaminophen With Codeine (Tylenol With Codeine #3 Tablet) 1 Each Tablet Yes 300 Every 4 Hours as needed for Pain [facility] Buspirone Hcl 10 Mg Tablet Buspirone Hcl 10 Mg Tablet Yes 15 Three Times A Day [facility] Carbamazepine (Tegretol) 200 Mg Tablet Carbamazepine (Tegretol) 200 Mg Tablet Yes 600 Bedtime [facility] Carisoprodol (Soma) 250 Mg Tab Carisoprodol (Soma) 250 Mg Tab Yes 350 Four Times Daily [facility] Cetirizine Hcl (Zyrtec) 10 Mg Tablet Cetirizine Hcl (Zyrtec) 10 Mg Tablet Yes 10 Daily [facility] Ducolax Ducolax Yes As Needed [facility] Ferrous Gluconate 324 Mg Tablet Ferrous Gluconate 324 Mg Tablet Yes 324 Twice A Day [facility] Furosemide (Lasix) 40 Mg Tablet Furosemide (Lasix) 40 Mg Tablet Yes 20 [facility] Levothyroxine Sodium 50 Mcg Tablet Levothyroxine Sodium 50 Mcg Tablet Yes 150 Daily [facility] Levothyroxine Sodium (Synthroid) 75 Mcg Tab Levothyrox ine Sodium (Synthroid) 75 Mcg Tab Yes 75 [facility] Lisinopril 10 Mg Tablet Lisinopril 10 Mg Tablet Yes 5 Bedtime [facility] Metoprolol Succinate (Toprol Xl) 50 Mg Tab.er.24h Meto prolol Succinate (Toprol Xl) 50 Mg Tab.er.24h Yes 50 Every Morning [facility] Metoprolol Tartrate 25 Mg Tablet Metoprolol Tartrate 25 Mg Tablet Yes 25 Bedtime [facility] Pantoprazole Sodium (Protonix) 40 Mg Tablet. Pantopr azole Sodium (Protonix) 40 Mg Tablet. Yes 40 Three Times A Day [facility] Phazime Phazime Yes 250 Twice A Day as needed fo r Prn [facility] Potassium Chloride (Klor-Con 10) 10 Meq Tablet.er Pota ssium Chloride (Klor-Con 10) 10 Meq Tablet.er Yes 1 Twice A Day [facility] Rosuvastatin Calcium (Crestor) 10 Mg Tab Rosuvastatin Calcium (Crestor) 10 Mg Tab Yes 10 Bedtime [facility] Triamcinolone Acetonide (Nasacort) 16.9 Ml [place] Triam cinolone Acetonide (Nasacort) 16.9 Ml [place] Yes 2 As Needed [facility] Warfarin Sodium (Coumadin) 5 Mg Tablet Warfarin Sodium (Coumadin ) 5 Mg Tablet Yes 5 [facility] Metoprolol Succinate 25 Mg Tab.er.24h, 25 Mg Oral Meto prolol Succinate 25 Mg Tab.er.24h, 25 Mg Oral 2019-11-03 00:00:00 No 25 T wice A Day [facility] Potassium Chloride 10 Meq Tab.er.prt, 10 Meq Oral Pota ssium Chloride 10 Meq Tab.er.prt, 10 Meq Oral 2019-11-03 00:00:00 No 10 Three Times A Day [facility] Acetaminophen/Hydrocodone Bitart (Jetmore 10MG-325MG*) 1 Ea Tab, 1 Tab Oral Acetaminophen/Hydrocodone Bitart ([place] 10MG-325MG*) 1 Ea Tab, 1 Tab Oral 2019-10-30 00:00:00 No 1 Four Times Daily [facility] Estrogens, Conjugated (Premarin) 1.25 Mg Tablet, 1.25 Mg Oral Estrogens, Conjugated (Premarin) 1.25 Mg Tablet, 1.25 Mg Oral 2019-10-30 00:00:0 0 No 1.25 Every Other Day [facility] Levothyroxine Sodium 200 Mcg Tablet, 200 Mcg Oral Levo thyroxine Sodium 200 Mcg Tablet, 200 Mcg Oral 2015-02-14 00:00:00 No 200 Jennifer ly [facility] Warfarin Sodium (Coumadin) 5 Mg Tablet, 2.5 Mg Oral Wa rfarin Sodium (Coumadin) 5 Mg Tablet, 2.5 Mg Oral 2015-02-14 00:00:00 No 2.5 E very Other Day [facility] Estrogens, Conjugated (Premarin) 0.9 Mg Tablet, 0.9 Mg Oral Estrogens, Conjugated (Premarin) 0.9 Mg Tablet, 0.9 Mg Oral 2014-09-04 00:00:00 No .9 Every Other Day [facility] Furosemide 40 Mg Tablet, 40 Mg Oral Furosemide 40 Mg Tablet, 40 Mg Oral 2014-03-11 00:00:00 No 40 Daily [facility] Lisinopril 10 Mg Tablet, 10 Mg Oral Lisinopril 10 Mg Tablet, 10 Mg Oral 2014-01-30 00:00:00 No 10 Bedtime [facility] Xarelto , Mg Oral Xarelto , Mg Oral 2014-01-30 00:00:00 No Daily [facility] Warfarin Sodium 3 Mg Tablet, 3 Mg Oral Warfarin Sodium 3 Mg Tabl et, 3 Mg Oral 2013-11-08 00:00:00 No 3 Every Other Day [facility] Warfarin Sodium 6 Mg Tablet, 6 Mg Oral Warfarin Sodium 6 Mg Tabl et, 6 Mg Oral 2013-11-08 00:00:00 No 6 Every Other Day [facility] Rosuvastatin Calcium (Crestor) 10 Mg Tab, 10 Mg Oral R osuvastatin Calcium (Crestor) 10 Mg Tab, 10 Mg Oral 2013-10-18 00:00:00 No 10 Bedtime [facility] Cyclobenzaprine Hcl 10 Mg Tablet, 10 Mg Oral Cyclobenz aprine Hcl 10 Mg Tablet, 10 Mg Oral 2013-05-03 00:00:00 No 10 Four Times Da kuldeep [facility] Dexlansoprazole (Dexilant) 60 Mg Cap., 60 Mg Oral Dexlansoprazole (Dexilant) 60 Mg Cap., 60 Mg Oral 2013-05-03 00:00:00 No 60 Daily [facility] Digoxin 250 Mcg Tablet, 250 Mcg Oral Digoxin 250 Mcg Tablet, 250 Mcg Oral 2013-05-03 00:00:00 No 250 Daily [facility] Lidocaine (Lidoderm) 700 Mg Adh..patch, 1 Patch Transd erm Lidocaine (Lidoderm) 700 Mg Adh..patch, 1 Patch Transderm 2013-05-03 00:00:00 No 1 Daily as needed [facility] Simethicone 80 Mg Chew, 80 Mg Oral Simethicone 80 Mg Chew, 80 Mg Oral 2013-05-03 00:00:00 No 80 Before Meals [facility] Carbamazepine , 600 Mg Oral Carbamazepine , 600 Mg Oral 2012-10-02 00:00:00 No 600 Bedtime [facility] Lidocain Patch , 5 % Transderm Lidocain Patch , 5 % Transderm 2012-10-02 00:00:00 No 5 Daily [facility] Nasal [place] , Inhalation Nasal [place] , Inhalation 2012 00:00:00 No Twice A Day [facility] Nystatin Topical , Topically Nystatin Topical , Topically 2012-10-02 00:00:00 No Twice A Day [facility] Senna , Oral Senna , Oral 2012-10-02 00:00:00 No Daily [facility] Atorvastatin Calcium 20 Mg Tablet, 20 Mg Oral Atorvast atin Calcium 20 Mg Tablet, 20 Mg Oral 2012-09-16 00:00:00 No 20 Bedtime [facility] Diltiazem Hcl (Diltiazem Er) 240 Mg Cap.er.deg, 240 Mg Oral Diltiazem Hcl (Diltiazem Er) 240 Mg Cap.er.deg, 240 Mg Oral 2012-09-16 00:00:00 No 240 Daily [facility] Multivitamin , Oral Multivitamin , Oral 2012-09-16 00:00:00 No Daily [facility] Prednisone 10 Mg Tab, 10 Mg Oral Prednisone 10 Mg Tab, 10 Mg Ora l 2012-09-16 00:00:00 No 10 Daily [facility] Tolterodine Tartrate (Detrol La) 4 Mg Cap.er.24h, Or al Tolterodine Tartrate (Detrol La) 4 Mg Cap.er.24h, Oral 2012-09-16 00:00:00 No Daily [facility] Lactulose 20 Gm/30 Ml Solution, Oral Lactulose 20 Gm/30 Ml [place] ution, Oral 2012-08-10 00:00:00 No Every 4 Hours as nee ded [facility] Nystatin , 5 Mg Oral Nystatin , 5 Mg Oral 2012-08-10 00:00:00 No 5 Three Times A Day [facility] Buspar , Buspar , 2012-08-09 00:00:00 [facility] Dexilant , Dexilant , 2012-08-09 00:00:00 [facility] Hydrocodone , Hydrocodone , 2012-08-09 00:00:00 [facility] Lisinopril , Lisinopril , 2012-08-09 00:00:00 [facility] Lozol , Lozol , 2012-08-09 00:00:00 [facility] Premarin , Premarin , 2012-08-09 00:00:00 [facility] Senna , Senna , 2012-08-09 00:00:00 [facility] Soma , Soma , 2012-08-09 00:00:00 [facility] Synthroid , Synthroid , 2012-08-09 00:00:00 [facility] Tegretol , Tegretol , 2012-08-09 00:00:00 [facility] Topral , Topral , 2012-08-09 00:00:00 [facility] Warfarin , Warfarin , 2012-08-09 00:00:00 [facility] Zolpidem , Zolpidem , 2012-08-09 00:00:00 [facility] Vital Signs Vital Name Observation Time Observation Value Comments Source Weight 2014-02-27 19:00:00 [facility] [place] Height 2014-02-27 19:00:00 [facility] Temperature Oral (F) 2014-02-27 19:00:00 98.2 F [facility] Heart Rate 2014-02-27 19:00:00 [facility] Diastolic (mm Hg) 2014-02-27 19:00:00 [facility] orial [place] Systolic (mm Hg) 2014-02-27 19:00:00 Ti rial [place] Procedures Procedure Date / Time Performed Performing Clinician [facility] e EGD (esophagogastroduodenoscopy) 2019-11-06 00:00:00 CHAIM BOLAÑOS [facility] Magnetic resonance cholangiopancreatography (MRCP) wit hout contrast 2019-11-05 00:00:00 SALOME BOLAÑOS [facility] Computed tomography of abdomen and pelvis with contrast 2019 00:00:00 THOMAS HAWKINS [facility] X-ray of chest, two views 2019-10-30 00:00:00 SALOME BOLAÑOS [facility] Computed tomography of abdomen and pelvis with contrast 2019 00:00:00 SALOME BOLAÑOS [facility] Iv Infus, Hydrat [id number] 2019-09-28 00:00:00 THOMAS HARTMAN [facility] Encounters Start Date/Time End Date/Time Encounter Type [facility] Encounter ID Source 2019-11-03 23:02:00 2019-11-07 17:43:00 Discharged Inpatient (obs) 1 PATO BOLAÑOS [facility] [id number] [facility] 2019-10-30 10:49:00 2019-10-30 10:49:00 Registered Clinic 3 SALOME BOLAÑOS [facility] [id number] [facility] 2019-10-24 15:12:00 2019-10-24 20:14:00 Departed Emergency Room 1 ERIS FUNEZ [facility] [id number] [facility] 2019-09-28 14:27:00 2019-09-28 14:27:00 Registered Clinic 3 SALOME BOLAÑOS [facility] [id number] [facility] 2018-10-16 13:03:00 2018-10-16 13:03:00 Outpatient Karishma Donaldson MD [place] [id number] [employer] 2018-03-31 18:53:00 2018-03-31 22:55:00 Departed Emergency Room 1 ESTIVEN GRANADO [facility] [id number] [facility] 2018-03-13 10:26:00 2018-03-13 10:26:00 Outpatient Karishma Donaldson MD [place] [id number] [employer] 2018-03-10 09:02:00 2018-03-10 09:02:00 Outpatient Karishma Donaldson MD [place] [id number] [employer] 2017-12-14 10:46:00 2017-12-14 10:46:00 Outpatient Karishma Donaldson MD [place] [id number] [employer] 2017-08-11 15:45:00 2017-08-11 15:45:00 Outpatient Karishma Donaldson MD [place] [id number] [employer] 2017-06-06 15:38:00 2017-06-06 15:38:00 Outpatient Karishma Donaldson MD [place] [id number] [employer] 2016-12-15 12:23:00 2016-12-15 12:23:00 Outpatient Karishma Donaldson MD [place] [id number] [employer] 2016-09-03 16:54:00 2016-09-03 16:54:00 Outpatient MD LETHA Cool MD [place] [id number] [employer] 2016-08-17 14:44:00 2016-08-17 14:44:00 Outpatient MD LETHA Cool MD PA [id number] [employer] 2016-08-17 14:42:00 2016-08-17 14:42:00 Outpatient MD LETHA Cool MD [place] [id number] [employer] 2016-08-17 13:34:00 2016-08-17 13:34:00 Outpatient MD LETHA Cool MD [place] [id number] [employer] 2016-03-02 08:51:00 2016-03-02 08:51:00 Outpatient Mohamed O. MD LETHA Donaldson MD [place] [id number] [employer] 2016-02-26 10:36:00 2016-02-26 10:36:00 Outpatient MD LETHA Cool MD [place] [id number] [employer] 2015-08-29 14:55:00 2015-08-29 14:55:00 Outpatient MD LETHA Cool MD PA [id number] [employer] 2014-10-22 10:19:00 2014-10-22 10:19:00 [place] [id number] [employer] 2014-06-13 15:51:00 2014-06-13 15:51:00 [place] [id number] [employer] 2014-03-05 17:18:00 2014-03-05 17:18:00 [place] [id number] [employer] 2014-02-28 15:42:00 2014-02-28 15:42:00 [place] [id number] [employer] 2014-02-27 14:00:00 2014-02-27 14:00:00 [place] [id number] [employer] Results Test Description Test Time Test Comments Results Result Comments Source White Blood Count 2019-11-07 06:49:00 Test Item White Blood Count (test code = 6690-2) 11.03 4.8[facility]10.8 [id number] 06:49:00* Test Item Value Reference Range Interpretation Comments Red Blood Count (test code = 789-8) 3.66 3.6-5.1 [facility] 06:49:00* Test Item Value Reference Range Interpretation Comments Hemoglobin (test code = 78975-8) 11.8 12.0-16.0 L [facility] CenterHematocrit2020-04-15 06:49:00* Test Item Value Reference Range Interpretation Comments Hematocrit (test code = 4544-3) 35.7 34.2-44.1 [facility] CenterMean Corpuscular Hrgbst1543-15-88 06:49:00* Test Item Value Reference Range Interpretation Comments Mean Corpuscular Volume (test code = 787-2) 97.5 81-99 [facility] CenterMean Corpuscular Oienuyacbm7915-77-82 06:49:00* Test Item Value Reference Range Interpretation Comments Mean Corpuscular Hemoglobin (test code = 785-6) 32.2 28-32 H [facility] CenterMean Corpuscular Hemoglobin Concent 2019-11-07 06:49:00* Test Item Value Reference Range Interpretation Comments Mean Corpuscular Hemoglobin Concent (test code = 786-4) 33.1 31-35 [facility] CenterRed Cell Distribution Wsutt0639-28-84 06:49:00* Test Item Value Reference Range Interpretation Comments Red Cell Distribution Width (test code = 82582-8) 13.5 11.7 -14.4 [facility] CenterPlatelet Bczcp5163-09-49 06:49:00* Test Item Value Reference Range Interpretation Comments Platelet Count (test code = 777-3) 233 140-360 [facility] CenterNeutrophils (%) (Auto)2019-11-07 06:49:00 * Test Item Value Reference Range Interpretation Comments Neutrophils (%) (Auto) (test code = 40084-8) 76.7 38.7-80.0 [facility] CenterLymphocytes (%) (Auto)2019-11-07 06:49:00 * Test Item Value Reference Range Interpretation Comments Lymphocytes (%) (Auto) (test code = 736-9) 15.0 18.0-39.1 L [facility] CenterMonocytes (%) (Auto)2019-11-07 06:49:00* Test Item Value Reference Range Interpretation Comments Monocytes (%) (Auto) (test code = 5905-5) 7.0 4.4-11.3 [facility] CenterEosinophils (%) (Auto)2019-11-07 06:49:00 * Test Item Value Reference Range Interpretation Comments Eosinophils (%) (Auto) (test code = 713-8) 0.5 0.0-6.0 [facility] CenterBasophils (%) (Auto)2019-11-07 06:49:00* Test Item Value Reference Range Interpretation Comments Basophils (%) (Auto) (test code = 706-2) 0.4 0.0-1.0 [facility] CenterIM GRANULOCYTES %2019-11-07 06:49:00* Test Item Value Reference Range Interpretation Comments IM GRANULOCYTES % (test code = IM GRANULOCYTES %) 0.4 0.0- 1.0 [facility] CenterNeutrophils # (Auto)2019-11-07 06:49:00* Test Item Value Reference Range Interpretation Comments Neutrophils # (Auto) (test code = 751-8) 8.5 2.1-6.9 H [facility] CenterLymphocytes # (Auto)2019-11-07 06:49:00* Test Item Value Reference Range Interpretation Comments Lymphocytes # (Auto) (test code = 42115-2) 1.7 1.0-3.2 [facility] CenterMonocytes # (Auto)2019-11-07 06:49:00* Test Item Value Reference Range Interpretation Comments Monocytes # (Auto) (test code = 742-7) 0.8 0.2-0.8 [facility] CenterEosinophils # (Auto)2019-11-07 06:49:00* Test Item Value Reference Range Interpretation Comments Eosinophils # (Auto) (test code = 711-2) 0.1 0.0-0.4 [facility] CenterBasophils # (Auto)2019-11-07 06:49:00* Test Item Value Reference Range Interpretation Comments Basophils # (Auto) (test code = 704-7) 0.0 0.0-0.1 [facility] CenterAbsolute Immature Granulocyte (auto 2019-11-07 06:49:00* Test Item Value Reference Range Interpretation Comments Absolute Immature Granulocyte (auto (pam t code = Absolute Immature Granulocyte (auto) 0.04 0-0.1 [facility] CenterTriglycerides Divdo8088-64-47 06:45:00* Test Item Value Reference Range Interpretation Comments Triglycerides Level (test code = 2571-8) 135 0-149 [facility] CenterLDL Zjsvoiwosdc7836-17-09 06:45:00* Test Item Value Reference Range Interpretation Comments LDL Cholesterol (test code = 2089-1) 63 60-130 [facility] CenterThyroid Stimulating Hormone (TSH) 2019-11-07 06:17:00* Test Item Value Reference Range Interpretation Comments Thyroid Stimulating Hormone (TSH) (test code = 86235-9) 9.738 0.350-4.940 [facility]odium Rqbxf1138-61-28 06:04:00* Test Item Value Reference Range Interpretation Comments Sodium Level (test code = 2951-2) 135 136-145 L [facility] CenterPotassium Hfiwh0255-07-69 06:04:00* Test Item Value Reference Range Interpretation Comments Potassium Level (test code = 2823-3) 4.3 3.5-5.1 [facility] CenterChloride Ubyex1670-74-38 06:04:00* Test Item Value Reference Range Interpretation Comments Chloride Level (test code = 2075-0) 110 98-107 H [facility] CenterCarbon Dioxide Uobiy4569-91-34 06:04:00* Test Item Value Reference Range Interpretation Comments Carbon Dioxide Level (test code = 2028-9) 21 22-29 L [facility] CenterAnion Atu2293-29-40 06:04:00* Test Item Value Reference Range Interpretation Comments Anion Gap (test code = 97631-3) 8.3 8-16 [facility] CenterBlood Urea Rolvlrty8219-01-45 06:04:00* Test Item Value Reference Range Interpretation Comments Blood Urea Nitrogen (test code = 3094-0) < 5 7-26 L [facility] CenterCreatinine2020-04-15 06:04:00* Test Item Value Reference Range Interpretation Comments Creatinine (test code = 2160-0) 0.93 0.57-1.11 [facility] CenterBUN/Creatinine Jutow0039-87-04 06:04:00* Test Item Value Reference Range Interpretation Comments BUN/Creatinine Ratio (test code = 3097-3) 5 6-25 L [facility] CenterEstimat Glomerular Filtration Rate 2019-11-07 06:04:00* Test Item Value Reference Range Interpretation Comments Estimat Glomerular Filtration Rate (test code = 042379605) 58 >60 L Ranges were taken from the National Kidney Disease Education Program and the [facility] Kidney Foundation literature.Reference ranges:60 or greater: Sjlznn90-14 ( for 3 consecutive months): Chronic kidney disease 15 or less: Kidney failureGrace Medical CenterGlucose Ecmsn8113-19-44 06:04:00* Test Item Value Reference Range Interpretation Comments Glucose Level (test code = LNC5163) 94 74-118 [facility] CenterCalcium Binjo3166-91-79 06:04:00* Test Item Value Reference Range Interpretation Comments Calcium Level (test code = 69138-9) 7.7 8.4-10.2 L [facility] CenterTotal Toaqhqhcu7737-67-92 06:04:00* Test Item Value Reference Range Interpretation Comments Total Bilirubin (test code = 1975-2) 0.5 0.2-1.2 [facility] CenterAspartate Amino Transf (AST/SGOT) 2019-11-07 06:04:00* Test Item Value Reference Range Interpretation Comments Aspartate Amino Transf (AST/SGOT) (test code = Aspartate Amino Transf (AST/SGOT)) 31 5-34 [facility] CenterAlanine Aminotransferase (ALT/SGPT) 2019-11-07 06:04:00* Test Item Value Reference Range Interpretation Comments Alanine Aminotransferase (ALT/SGPT) (test code = 1742-6) 18 0-55 [facility] CenterTotal Ssozktb3213-09-25 06:04:00* Test Item Value Reference Range Interpretation Comments Total Protein (test code = 2885-2) 7.2 6.5-8.1 [facility] CenterAlbumin2020-04-15 06:04:00* Test Item Value Reference Range Interpretation Comments Albumin (test code = 1751-7) 3.7 3.5-5.0 [facility] CenterGlobulin2020-04-15 06:04:00* Test Item Value Reference Range Interpretation Comments Globulin (test code = 60184-1) 3.5 2.3-3.5 [facility] CenterAlbumin/Globulin Pogzy1659-71-75 06:04:00 * Test Item Value Reference Range Interpretation Comments Albumin/Globulin Ratio (test code = 1759-0) 1.1 0.8-2.0 [facility] CenterAlkaline Kfqzwhrbaov5350-99-06 06:04:00* Test Item Value Reference Range Interpretation Comments Alkaline Phosphatase (test code = 6768-6) 92 40-150 [facility] CenterCholesterol Hoptm8548-65-63 06:04:00* Test Item Value Reference Range Interpretation Comments Cholesterol Level (test code = 2093-3) 138 0-199 Less than 200 mg/dL Low Xkjl727 - 239 mg/dL Borderline Lvnw959 m g/dl and greater High Risk [facility] CenterHDL Brisehbjwvp2300-94-52 06:04:00* Test Item Value Reference Range Interpretation Comments HDL Cholesterol (test code = 2085-9) 48 40-60 [facility] CenterCholesterol/HDL Rivmt6075-80-86 06:04:00 * Test Item Value Reference Range Interpretation Comments Cholesterol/HDL Ratio (test code = 9830-1) 2.9 3.0-3.6 [facility] Hospitaltool Occult Ftjoe9026-24-17 18:29:00* Test Item Value Reference Range Interpretation Comments Stool Occult Blood (test code = 2335-8) NEGATIVE NEGATIVE [facility] CenterMRI MRCP JE3579-86-27 15:41:00 [facility] [address] [place] [address] Patient Name: LENIN MENDEZ MR #: [id number] : 1940 Age/Sex: 79/F Req #: [id number] Adm Physician: PATO BOLAÑOS MD Ordered by: SALOME BOLAÑOS MD Report #: [id number] Location: MED/SURG Room/Bed: [facility] Procedure: [id number] MRI /MRI MRCP WO Exam Date: Exam Time: REPORT STATUS: Signed MRCP (magnetic resonance cholangiopancreatography) HISTORY: Dilated common bile duct Comparison : CT abdomen and pelvis 11/03/2019 and 09/28/2019 and 03/31/2018 Technique: Mult iplanar and multisequence MRI images of the abdomen were obtained without cont rast. Three-dimensional reconstructed images of the biliary tree are also revi ewed. FINDINGS: Examination is technically limited by patient motion. The common bile duct is enlarged, measuring up to 18 mm in caliber. Central intrahepatic biliary dilation is noted. No definitive intrinsic or extrinsic defect is identified within the biliary system. No pancreatic ductal dilation. The gallbladder demonstrates no intraluminal defect, wall thick ening, or pericholecystic fluid. No mass is identified in the region of t he ampulla or pancreatic head. Unremarkable appearance of the liver, pancre as, spleen, adrenal glands, and kidneys. The visualized bowel loops appea r normal in caliber. No free fluid or lymphadenopathy is seen within the ab domen. Impression: Enlarged common bile duct and central intrahepatic biliary dilation, without visualized obstructive lesion. The caliber of the co mmon bile duct is similar to previous CT examinations dating back to 03/31/2018. Recommend correlation with serum bilirubin levels to assess the need for furt her evaluation with ERCP. Signed by: Radames Rob MD on 11/05/2019 3:55 P M Dictated By: RADAMES ROB MD 54 Transcribed By: ARUNA on 11/05/191554 COPY TO: SALOME BOLAÑOS MD Prothrombin Ecck2750-35-29 20:40:00* Test Item Value Reference Range Interpretation Comments Prothrombin Time (test code = 5902-2) 18.4 11.9-14.5 H [facility] CenterProthromb Time International Ratio 2019-11-04 20:40:00* Test Item Value Reference Range Interpretation Comments Prothromb Time International Ratio (test code = 6301-6) 1.43 Oral Anticoagulant Therapy INR Values:1. Low Intensity Therapy 1.5 - 2.02 . Moderate Intensity Therapy 2.0 - 3.03. High Intensity Therapy(1) 2.5 - 3. 54. High Intensity Therapy(2) 3.0 - 4.05. Panic Value INR > 5.0 [facility] CenterCreatine Aldcpt9578-44-78 15:23:00* Test Item Value Reference Range Interpretation Comments Creatine Kinase (test code = 2157-6) 323 29-168 H [facility] CenterCreatine Kinase BJ4219-22-04 15:23:00* Test Item Value Reference Range Interpretation Comments Creatine Kinase MB (test code = 07643-2) 6.10 0-5.0 H [facility] CenterTroponin X6538-11-59 15:23:00* Test Item Value Reference Range Interpretation Comments Troponin I (test code = 07084-8) 0.001 0-0.300 [facility] CenterCT ABDOMEN/PELVIS B0813-57-82 22:28:00 [facility] [address] [place] [address] Patient Name: LENIN MENDEZ MR #: [id number] : 1940 Age/Sex: 79/F Req #: [id number] Adm Physician: Ordered by: THOMAS HAWKINS DO Report #: [id number] Location: ER Room/Bed: Procedure: [id number] CT/CT A BDOMEN/PELVIS W Exam Date: 11/03/19 Exam Time: 2109 REPORT STATUS: Signed EXAM: CT A bdomen and Pelvis WITH contrast INDICATION: abd pain [id number] COMPARISON: CT dated 09/28/2019 TECHNIQUE: Abdomen and pelvis were scan maya utilizing a multidetector helical scanner from the lung base to the pubic symphysis after administration of IV contrast. Coronal and sagittal reformatio ns were obtained. Dose modulation, iterative reconstruction, and/or weight bas ed adjustment of the mA/kV was utilized to reduce the radiation dose to as low as reasonably achievable. Routine protocol was performed. Scan was performed when during portal venous phase. IV CONTRAST: 100 mL of Isovue-370 ORAL CONTRAST: Water COMPLICATIONS: None RADIATION DOSE: Total DLP: 591.06 mGy*cm Estimated effective dose: (DLP x 0. 015 x size factor) mSv CTDIvol has been reviewed. It is below the limits set by the Radiation Protocol Committee (RPC). FINDINGS: LINES and T UBES: None. LOWER THORAX: Unremarkable HEPATOBILIARY: No focal h epatic lesions. Mild intrahepatic biliary dilatation, especially the left lobe . The common bile left is distended up to 2 cm, previously 1.5 cm. GALLBL ADDER: No radio-opaque stones or sludge. No wall thickening. SPLEEN: No sp lenomegaly. PANCREAS: Atrophic. Suspected pancreatic divisum. No focal mas ses or ductal dilatation. ADRENALS: Unchanged 1 cm left adrenal nodule versus thickening. No right adrenal nodules. KIDNEYS/URETERS: Kidneys enhance symmetrically. No hydronephrosis. No cystic or solid mass lesions. No stones. GI TRACT: Gastric surgery. No abnormal distention, wall thickeni ng, or evidence of bowel obstruction. Appendix is not visualized. P ELVIC ORGANS/BLADDER: Hysterectomy. Bladder is unremarkable. LYMPH NODES: N o lymphadenopathy. VESSELS: There is mild atherosclerotic disease in the ao rta and major arterial branches. PERITONEUM / RETROPERITONEUM: No free ai r or fluid. BONES: Advanced degenerative changes of the spine. SOFT TI SSUES: Multiple bilateral gluteal calcified injection granulomas. IMPRESSION: 1. Again seen biliary dilatation, increased when compared to prior CT. Findings are suspicious for choledocholithiasis. Recommend correla tion with MRCP or ERCP. 2. No acute inflammatory process in the abdomen/pel vis. Signed by: Dr. Leodan Gentile MD on 11/03/2019 10:39 PM Dictated By: LEODAN GENTILE MD 39 Transcribed By: ARUNA on 11/03/199 COPY TO: ROSSTHOMAS Dkhmru0741-23-29 20:58:00* Test Item Value Reference Range Interpretation Comments Lipase (test code = 3040-3) 40 8-78 [facility] CenterUrine Aszdn6426-06-21 20:40:00* Test Item Value Reference Range Interpretation Comments Urine Color (test code = 5778-6) YELLOW YELLOW [facility] CenterUrine Rsqkxtq3151-43-12 20:40:00* Test Item Value Reference Range Interpretation Comments Urine Clarity (test code = 62684-0) HAZY CLEAR [facility] CenterUrine Specific Szppkfw0562-91-32 20:40:00 * Test Item Value Reference Range Interpretation Comments Urine Specific Logan (test code = 5811-5) 1.015 1.010-1.02 5 [facility] CenterUrine yD1620-57-37 20:40:00* Test Item Value Reference Range Interpretation Comments Urine pH (test code = 26380-9) 7.5 5-7 [facility] CenterUrine Leukocyte Afsokitd4326-04-80 20:40:00* Test Item Value Reference Range Interpretation Comments Urine Leukocyte Esterase (test code = 5799-2) TRACE NEGATIVE H [facility] CenterUrine Atlkkcq1208-15-67 20:40:00* Test Item Value Reference Range Interpretation Comments Urine Nitrite (test code = 99402-0) NEGATIVE NEGATIVE [facility] CenterUrine Spcagmw6913-74-76 20:40:00* Test Item Value Reference Range Interpretation Comments Urine Protein (test code = 5804-0) NEGATIVE NEGATIVE [facility] CenterUrine Glucose (UA)2019-11-03 20:40:00* Test Item Value Reference Range Interpretation Comments Urine Glucose (UA) (test code = 2349-9) NEGATIVE NEGATIVE [facility] CenterUrine Jxxbgsu1410-13-65 20:40:00* Test Item Value Reference Range Interpretation Comments Urine Ketones (test code = 40065-4) NEGATIVE NEGATIVE [facility] CenterUrine Zlatcnjzzyag2901-45-67 20:40:00* Test Item Value Reference Range Interpretation Comments Urine Urobilinogen (test code = 51334-9) 0.2 0.2-1 [facility] CenterUrine Uoypwibwv1130-37-82 20:40:00* Test Item Value Reference Range Interpretation Comments Urine Bilirubin (test code = 1978-6) NEGATIVE NEGATIVE [facility] CenterUrine Jqdyy0666-90-92 20:40:00* Test Item Value Reference Range Interpretation Comments Urine Blood (test code = 26114-7) NEGATIVE NEGATIVE [facility] CenterUrine PEE3205-35-05 20:40:00* Test Item Value Reference Range Interpretation Comments Urine WBC (test code = 5821-4) 0-5 0-5 [facility] CenterUrine ONL1963-36-38 20:40:00* Test Item Value Reference Range Interpretation Comments Urine RBC (test code = 50165-4) 0-5 0-5 [facility] CenterUrine Wjryytjc1306-04-35 20:40:00* Test Item Value Reference Range Interpretation Comments Urine Bacteria (test code = 98527-6) FEW NONE [facility] CenterUrine Epithelial Jzpcw6037-36-58 20:40:00 * Test Item Value Reference Range Interpretation Comments Urine Epithelial Cells (test code = 67395-7) FEW NONE [facility] CenterCHEST 2 AUEBL7097-81-91 14:07:00 [facility] [address] [address] Patient Name: LENIN MENDEZ MR #: [id number] : 1940 Age/Sex: 79/F Req #: [id number] Adm Physician: Ordered by: SALOME BOLAÑOS MD Report #: [id number] Location: OR Room/Bed: Procedure: [id number] DX/CH EST 2 VIEWS Exam Date: 10/30/19 Exam Time: 1400 REPORT STATUS: Signed EXAMINATION: CHEST 2 VIEWS INDICATION: Pre-operative COMPARISON: Chest radiogra ph 10/24/2019 FINDINGS: LINES/TUBES:None LUNGS:The lungs are w ell-inflated. No focal consolidation or pulmonary edema. PLEURA:No pleural effusion or pneumothorax. MEDIASTINUM:The cardiomediastinal silhouette appe ars normal in size and shape. BONES/SOFT TISSUES:No acute osseous injury. C ervical spine fusion hardware. ABDOMEN:No free air under the diaphragm. Fercho gical clips in the left upper abdomen. IMPRESSION: No focal pneumon ia or pulmonary edema. Signed by: Iesha Rodas MD on 10/30/2019 2:08 PM Dictated By: IESHA RODAS MD 07 Transcribed By: ARUNA on 10/30/191407 COPY TO: SALOME BOLAÑOS MD Blood Cnhjxsw3479-78-92 16:17:00* Test Item Value Reference Range Interpretation Comments Blood Culture (test code = 34510805) NO GROWTH AFTER 5 DAYS, FINAL REPORT [facility] CenterBlood Tfqtugl2803-23-02 16:17:00* Test Item Value Reference Range Interpretation Comments Blood Culture (test code = 79996397) NO GROWTH AFTER 5 DAYS, FINAL REPORT [facility] CenterUrine Dxkgllx3706-28-47 08:49:00* Test Item Value Reference Range Interpretation Comments Urine Culture (test code = 630-4) No Result Data Provided [facility] CenterUrine Olamcos5160-95-17 08:49:00* Test Item Value Reference Range Interpretation Comments Urine Culture (test code = 630-4) No Result Data Provided [facility] CenterCreatine Kinase DF8962-70-05 18:57:00* Test Item Value Reference Range Interpretation Comments Creatine Kinase MB (test code = 06256-9) 7.00 0-5.0 H [facility] CenterTroponin R0464-26-26 18:57:00* Test Item Value Reference Range Interpretation Comments Troponin I (test code = 62111-9) < 0.001 0-0.300 [facility] CenterCreatine Donsvx8108-73-19 18:45:00* Test Item Value Reference Range Interpretation Comments Creatine Kinase (test code = 2157-6) 299 29-168 H [facility] CenterUrine Eiswi6057-09-41 16:44:00* Test Item Value Reference Range Interpretation Comments Urine Color (test code = 5778-6) YELLOW YELLOW [facility] CenterUrine Lbguxhy1602-65-89 16:44:00* Test Item Value Reference Range Interpretation Comments Urine Clarity (test code = 70837-0) HAZY CLEAR [facility] CenterUrine Specific Ssgjaut9590-76-73 16:44:00 * Test Item Value Reference Range Interpretation Comments Urine Specific Logan (test code = 5811-5) 1.015 1.010-1.02 5 [facility] CenterUrine yP9491-30-79 16:44:00* Test Item Value Reference Range Interpretation Comments Urine pH (test code = 70962-9) 7.5 5-7 [facility] CenterUrine Leukocyte Nhluuqoz0875-92-61 16:44:00* Test Item Value Reference Range Interpretation Comments Urine Leukocyte Esterase (test code = 5799-2) 1+ NEGATIVE H [facility] CenterUrine Xqpkxji8359-51-66 16:44:00* Test Item Value Reference Range Interpretation Comments Urine Nitrite (test code = 10333-4) POSITIVE NEGATIVE [facility] CenterUrine Bgccdru0279-59-86 16:44:00* Test Item Value Reference Range Interpretation Comments Urine Protein (test code = 5804-0) NEGATIVE NEGATIVE [facility] CenterUrine Glucose (UA)2019-10-24 16:44:00* Test Item Value Reference Range Interpretation Comments Urine Glucose (UA) (test code = 2349-9) NEGATIVE NEGATIVE [facility] CenterUrine Nfawiil3810-10-39 16:44:00* Test Item Value Reference Range Interpretation Comments Urine Ketones (test code = 15518-2) NEGATIVE NEGATIVE [facility] CenterUrine Oaowcukpfrhb5402-80-91 16:44:00* Test Item Value Reference Range Interpretation Comments Urine Urobilinogen (test code = 28458-9) 0.2 0.2-1 [facility] CenterUrine Bjzvsaguc9555-23-00 16:44:00* Test Item Value Reference Range Interpretation Comments Urine Bilirubin (test code = 1978-6) NEGATIVE NEGATIVE [facility] CenterUrine Ewspg3397-83-88 16:44:00* Test Item Value Reference Range Interpretation Comments Urine Blood (test code = 08361-4) 1+ NEGATIVE H [facility] CenterUrine ZUM9103-73-25 16:44:00* Test Item Value Reference Range Interpretation Comments Urine WBC (test code = 5821-4) >50 0-5 H [facility] CenterUrine PMJ8389-97-55 16:44:00* Test Item Value Reference Range Interpretation Comments Urine RBC (test code = 52559-8) 6-10 0-5 H [facility] CenterUrine Plzsjkhr2606-52-06 16:44:00* Test Item Value Reference Range Interpretation Comments Urine Bacteria (test code = 81287-0) MANY NONE H [facility] CenterUrine Epithelial Yymxw2240-45-55 16:44:00 * Test Item Value Reference Range Interpretation Comments Urine Epithelial Cells (test code = 49156-6) NONE NONE [facility] CenterCHEST SINGLE (PORTABLE)2019-10-24 16:38:00 [facility] [address] [address] Patient Name: LENIN MENDEZ MR #: [id number] : 1940 Age/Sex: 79/F Req #: [id number] Adm Physician: Ordered by: THOMAS [employer] MAINTAINER Report #: [id number] Location: ER Room/Bed: Procedure: [id number] DX/C HEST SINGLE (PORTABLE) Exam Date: 10/24/19 Exam Time : 1620 REPORT STATUS: Signed EXA M: CHEST SINGLE (PORTABLE) DATE: 10/24/2019 3:33 PM INDICATION: Short ness of breath COMPARISON: 04/11/2018 FINDINGS: The trachea is midl ine. The lungs are symmetrically expanded without evidence for large focal con solidation, pneumothorax, or significant pleural effusion. The cardiac appe ars prominent which may be secondary to technique but stable from the prior ex amination. Mediastinal contours are unremarkable. Partially visualized cervica l fusion hardware noted. No acute osseous abnormality is identified. I MPRESSION: No acute cardiopulmonary process identified. Signed by: Dr. Zoltan Mcrae MD on 10/24/2019 4:41 PM Dictated By: ZOLTAN MCRAE MD Elect ronically Signed By: ZOLTAN MCRAE MD on 10/24/191 Transcribed By: ARUNA tejeda 10/24/191 COPY TO: THOMAS [employer] MAINTAINER B-Type Natriuretic Kduggrq9656-12-98 16:28:00* Test Item Value Reference Range Interpretation Comments B-Type Natriuretic Peptide (test code = 85843-8) 134.2 0-100 H [facility] CenterB-Type Natriuretic Mxjsvyf3607-44-86 16:28:00* Test Item Value Reference Range Interpretation Comments B-Type Natriuretic Peptide (test code = 83304-7) 134.2 0-100 H [facility] CenterInfluenza Virus Types A,B Antigen 2019-10-24 16:21:00* Test Item Value Reference Range Interpretation Comments Influenza Virus Types A,B Antigen (test code = 06059-7) NEGATIVE NEGATIVE [facility] CenterInfluenza Virus Types A,B Antigen 2019-10-24 16:21:00* Test Item Value Reference Range Interpretation Comments Influenza Virus Types A,B Antigen (test code = 27989-5) NEGATIVE NEGATIVE [facility] Ptjue5597-49-51 16:20:00* Test Item Value Reference Range Interpretation Comments Sodium Level (test code = 2951-2) 136 136-145 [facility] CenterPotassium Qfijw8037-70-00 16:20:00* Test Item Value Reference Range Interpretation Comments Potassium Level (test code = 2823-3) 4.7 3.5-5.1 [facility] CenterChloride Jkxpm2595-38-78 16:20:00* Test Item Value Reference Range Interpretation Comments Chloride Level (test code = 2075-0) 98 98-107 [facility] CenterCarbon Dioxide Jvcfw0043-70-69 16:20:00* Test Item Value Reference Range Interpretation Comments Carbon Dioxide Level (test code = 2028-9) 28 22-29 [facility] CenterAnion Yvb5494-64-39 16:20:00* Test Item Value Reference Range Interpretation Comments Anion Gap (test code = 79040-1) 14.7 8-16 [facility] CenterBlood Urea Vndyhhjp6491-67-55 16:20:00* Test Item Value Reference Range Interpretation Comments Blood Urea Nitrogen (test code = 3094-0) 21 7-26 [facility] CenterCreatinine2020-04-01 16:20:00* Test Item Value Reference Range Interpretation Comments Creatinine (test code = 2160-0) 1.11 0.57-1.11 [facility] CenterBUN/Creatinine Ptkki4626-62-30 16:20:00* Test Item Value Reference Range Interpretation Comments BUN/Creatinine Ratio (test code = 3097-3) 19 6-25 [facility] CenterEstimat Glomerular Filtration Rate 2019-10-24 16:20:00* Test Item Value Reference Range Interpretation Comments Estimat Glomerular Filtration Rate (test code = 600709423) 47 >60 L Ranges were taken from the National Kidney Disease Education Program and the [facility] literature.Reference ranges:60 or greater: Jerkgv37-16 ( for 3 consecutive months): Chronic kidney disease 15 or less: Kidney failureGrace Medical CenterGlucose Hqecl6885-30-41 16:20:00* Test Item Value Reference Range Interpretation Comments Glucose Level (test code = XSF1046) 101 74-118 [facility] CenterCalcium Wxrxq3965-33-01 16:20:00* Test Item Value Reference Range Interpretation Comments Calcium Level (test code = 24415-9) 8.8 8.4-10.2 [facility] CenterTotal Xwssiyxan4127-79-72 16:20:00* Test Item Value Reference Range Interpretation Comments Total Bilirubin (test code = 1975-2) 0.5 0.2-1.2 [facility] CenterAspartate Amino Transf (AST/SGOT) 2019-10-24 16:20:00* Test Item Value Reference Range Interpretation Comments Aspartate Amino Transf (AST/SGOT) (test code = Aspartate Amino Transf (AST/SGOT)) 27 5-34 [facility] CenterAlanine Aminotransferase (ALT/SGPT) 2019-10-24 16:20:00* Test Item Value Reference Range Interpretation Comments Alanine Aminotransferase (ALT/SGPT) (test code = 1742-6) 15 0-55 [facility] CenterTotal Bozkvgb3579-37-81 16:20:00* Test Item Value Reference Range Interpretation Comments Total Protein (test code = 2885-2) 7.3 6.5-8.1 [facility] CenterAlbumin2020-04-01 16:20:00* Test Item Value Reference Range Interpretation Comments Albumin (test code = 1751-7) 3.8 3.5-5.0 [facility] CenterGlobulin2020-04-01 16:20:00* Test Item Value Reference Range Interpretation Comments Globulin (test code = 22631-1) 3.5 2.3-3.5 [facility] CenterAlbumin/Globulin Aqfix1829-60-73 16:20:00 * Test Item Value Reference Range Interpretation Comments Albumin/Globulin Ratio (test code = 1759-0) 1.1 0.8-2.0 [facility] CenterAlkaline Cjrmcncxwyk3884-27-30 16:20:00* Test Item Value Reference Range Interpretation Comments Alkaline Phosphatase (test code = 6768-6) 80 40-150 [facility] CenterProthrombin Pidu1047-05-46 16:15:00* Test Item Value Reference Range Interpretation Comments Prothrombin Time (test code = 5902-2) 30.7 11.9-14.5 H [facility] CenterProthromb Time International Ratio 2019-10-24 16:15:00* Test Item Value Reference Range Interpretation Comments Prothromb Time International Ratio (test code = 6301-6) 2.70 Oral Anticoagulant Therapy INR Values:1. Low Intensity Therapy 1.5 - 2.02 . Moderate Intensity Therapy 2.0 - 3.03. High Intensity Therapy(1) 2.5 - 3. 54. High Intensity Therapy(2) 3.0 - 4.05. Panic Value INR > 5.0 [facility] CenterActivated Partial Thromboplast Time 2019-10-24 16:15:00* Test Item Value Reference Range Interpretation Comments Activated Partial Thromboplast Time (test code = 77684-0) 55.6 23.8-35.5 H [facility] CenterActivated Partial Thromboplast Time 2019-10-24 16:15:00* Test Item Value Reference Range Interpretation Comments Activated Partial Thromboplast Time (test code = 94051-1) 55.6 23.8-35.5 H [facility] CenterWhite Blood Pykql4451-88-68 16:06:00* Test Item Value Reference Range Interpretation Comments White Blood Count (test code = 6690-2) 6.92 4.8-10.8 [facility] CenterRed Blood Upypl7884-06-85 16:06:00* Test Item Value Reference Range Interpretation Comments Red Blood Count (test code = 789-8) 3.56 3.6-5.1 L [facility] CenterHemoglobin2020-04-01 16:06:00* Test Item Value Reference Range Interpretation Comments Hemoglobin (test code = 45083-6) 11.3 12.0-16.0 L [facility] CenterHematocrit2020-04-01 16:06:00* Test Item Value Reference Range Interpretation Comments Hematocrit (test code = 4544-3) 34.0 34.2-44.1 L [facility] CenterMean Corpuscular Yhydzu0659-01-44 16:06:00* Test Item Value Reference Range Interpretation Comments Mean Corpuscular Volume (test code = 787-2) 95.5 81-99 [facility] CenterMean Corpuscular Bgznlojlhd3710-47-66 16:06:00* Test Item Value Reference Range Interpretation Comments Mean Corpuscular Hemoglobin (test code = 785-6) 31.7 28-32 [facility] CenterMe Corpuscular Hemoglobin Concent 2019-10-24 16:06:00* Test Item Value Reference Range Interpretation Comments Mean Corpuscular Hemoglobin Concent (test code = 786-4) 33.2 31-35 [facility] CenterRed Cell Distribution Pqbbx7192-96-57 16:06:00* Test Item Value Reference Range Interpretation Comments Red Cell Distribution Width (test code = 45890-6) 13.3 11.7 -14.4 [facility] CenterPlatelet Wzhiv4242-15-34 16:06:00* Test Item Value Reference Range Interpretation Comments Platelet Count (test code = 777-3) 154 140-360 [facility] CenterNeutrophils (%) (Auto)2019-10-24 16:06:00 * Test Item Value Reference Range Interpretation Comments Neutrophils (%) (Auto) (test code = 40416-2) 75.7 38.7-80.0 [facility] CenterLymphocytes (%) (Auto)2019-10-24 16:06:00 * Test Item Value Reference Range Interpretation Comments Lymphocytes (%) (Auto) (test code = 736-9) 14.9 18.0-39.1 L [facility] CenterMonocytes (%) (Auto)2019-10-24 16:06:00* Test Item Value Reference Range Interpretation Comments Monocytes (%) (Auto) (test code = 5905-5) 7.4 4.4-11.3 [facility] CenterEosinophils (%) (Auto)2019-10-24 16:06:00 * Test Item Value Reference Range Interpretation Comments Eosinophils (%) (Auto) (test code = 713-8) 1.3 0.0-6.0 [facility] CenterBasophils (%) (Auto)2019-10-24 16:06:00* Test Item Value Reference Range Interpretation Comments Basophils (%) (Auto) (test code = 706-2) 0.3 0.0-1.0 [facility] CenterIM GRANULOCYTES %2019-10-24 16:06:00* Test Item Value Reference Range Interpretation Comments IM GRANULOCYTES % (test code = IM GRANULOCYTES %) 0.4 0.0- 1.0 [facility] CenterNeutrophils # (Auto)2019-10-24 16:06:00* Test Item Value Reference Range Interpretation Comments Neutrophils # (Auto) (test code = 751-8) 5.2 2.1-6.9 [facility] CenterLymphocytes # (Auto)2019-10-24 16:06:00* Test Item Value Reference Range Interpretation Comments Lymphocytes # (Auto) (test code = 30847-7) 1.0 1.0-3.2 [facility] CenterMonocytes # (Auto)2019-10-24 16:06:00* Test Item Value Reference Range Interpretation Comments Monocytes # (Auto) (test code = 742-7) 0.5 0.2-0.8 [facility] CenterEosinophils # (Auto)2019-10-24 16:06:00* Test Item Value Reference Range Interpretation Comments Eosinophils # (Auto) (test code = 711-2) 0.1 0.0-0.4 [facility] CenterBasophils # (Auto)2019-10-24 16:06:00* Test Item Value Reference Range Interpretation Comments Basophils # (Auto) (test code = 704-7) 0.0 0.0-0.1 [facility] CenterAbsolute Immature Granulocyte (auto 2019-10-24 16:06:00* Test Item Value Reference Range Interpretation Comments Absolute Immature Granulocyte (auto (pam t code = Absolute Immature Granulocyte (auto) 0.03 0-0.1 [facility] CenterCT ABDOMEN/PELVIS R1068-92-63 17:01:00 [facility] [address] [address] Patient Name: LENIN MENDEZ MR #: [id number] : 1940 Age/Sex: 79/F Req #: [id number] Adm Physician: Ordered by: SALOME BOLAÑOS MD Report #: [id number] Location: CT Room/Bed: Procedure: [id number] CT/CT ABDOMEN/PELVIS W Exam Date: 09/28/19 Exam Time: 1627 REPORT STATUS: Signed CT of the abdomen and pelvis, with contrast, 09/28/2019. History: Abdominal pain. Comparison: None available. Technique: Multidetector CT scanning of the abdomen and pelvis was performed from the level of the lung bases to the inferior pubic rami after intravenous and oral administration of contrast. Coronal and sagittal multiplanar reformations were obtained. RADIATI ON DOSE: Total DLP: 634 mGy*cm Dose modulation, iterative reconstr uction, and/or weight based adjustment of the mA/kV was utilized to reduce the radiation dose to as low as reasonably achievable. Discussion: LUNG BASES: No visualized abnormalities. ABDOMEN: The common bile duct is promin ent measuring 11 mm in diameter without visible filling defect. The gallbladde r is unremarkable without evidence of stones or wall thickening. The liver, sp carlos, pancreas, adrenal glands, and kidneys are normal. The hepatic vein, port al vein, and splenic vein are patent. The abdominal aorta is within normal li mits for size. Multiple surgical clips are present in the stomach consistent w ith prior gastric surgery. Small and large bowel are unremarkable There is no evidence of adenopathy or free fluid. PELVIS: The bladder is unremark able. The uterus and adnexa are absent. There is no evidence of free fluid or adenopathy. BONES AND SOFT TISSUES: Advanced degenerative changes are pres ent throughout the lumbar spine without evidence of lytic or sclerotic lesion. IMPRESSION: 1. Common bile duct dilatation without evidence of cho lelithiasis or choledocholithiasis. Correlate with laboratory values to determ ine need for further evaluation with MRCP. 2. Status post gastric bypass. No evidence of bowel obstruction. 3. Status post hysterectomy. Signed by: Thomas Hartman on 09/28/2019 5:07 PM Dictated By: THOMAS HARTMAN MD [facility] ically Signed By: THOMAS HARTMAN MD on 09/28/191706 Transcribed By: ARUNA on 09/28/191706 COPY TO: SALOME BOLAÑOS MD MRI RIGHT KNEE WO 2018-05-11 08:36:[address] [address] Patient Name: LENIN MENDEZ MR #: [id number] : 1940 Age/Sex: 77/F Req #: [id number] Adm Physician: Ordered by: BRENNANRAUL BEASLEY MD Report #: [id number] Location: MRI Room/Bed: Procedure: [id number] MRI/ MRI RIGHT KNEE WO Exam Date: Exam Time: REPORT STATUS: Signed Right knee MRI witho ut contrast. History: Knee pain. Fall. Decreased range of motion. Pain wors e with walking. Comparison: None. Technique: Multiplanar multi-sequenc e MRI of the knee without contrast. Findings: Medial compartment: The re is mild degeneration of the medial meniscus without tear. The medial compar tmental articular cartilage surfaces are slightly thin. The medial collateral ligament complex is intact. Lateral compartment: There is a complex tear in volving the posterior horn and body segments of the lateral meniscus best seen on sagittal series 3 image 26 through 28. There is articular cartilage fraying and deep fissuring at the posterior lateral femoral condyle with underlying bone marrow edema. There are peripheral marginal osteophytes. The lateral dangelo ateral ligament complex is intact. Intercondylar notch: The ACL and PCL are intact. Patellofemoral compartment: There are regions of full-thickness articular cartilage loss in the patellofemoral compartment with underlying ceci ne marrow edema Extensor mechanism: The quadriceps and patellar tendons are normal. Other findings: There is a joint effusion and synovitis. Th ere is no acute fracture, subluxation or avascular necrosis. 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 Regions of full-thickness articular cartilage loss in the patellofemoral compartment with underlying bone marrow edema. Mild degenerative arthrosis in the medi al compartment of the knee. Signed by: Dr. Deanna Daniels M.D. on 05/11/2018 8:40 AM Dictated By: DEANNA DANIELS MD, MD 9 Transcribed By: ARUNA on 05/11/18839 COPY TO: RAUL AMIN MD MRI HIP RIGHT [id number] 08:28:00 [address] [address] Patient Name: LENIN MENDEZ MR #: [id number] : 1940 Age/Sex: 77/F Req #: [id number] Adm Physician: Ordered by: RAUL AMIN MD Report #: [id number] Location: MRI Room/Bed: Procedure: [id number] MRI/ MRI HIP RIGHT WO Exam Date: Exam Time: REPORT STATUS: Signed MRI of the right hip without contrast. History: Hip pain. Fall. Decreased range of motion. Pain not responding to conservative management. Pain worse with walking. Tech nique: Multiplanar multisequence MRI of the hip without contrast. Compariso n CT scan 03/31/2018 Findings: There is no acute fracture, subluxation or av ascular necrosis about the right hip. Scattered degenerative changes are seen about the visualized lower lumbar spine and pelvis. The urinary bladder a nd remainder of the visualized pelvic structures are grossly unremarkable. There is mild degenerative arthrosis in the right hip joint with thinning of the articular cartilage at the superior lateral acetabulum and adjacent femoral head. There is degeneration and fraying of the labrum. There is a physiologic amount of fluid in the hip joint. The remainder of the visualized ligaments and tendons about the hip are intact. There is a moderate amount of soft t issue edema and fluid signal intensity adjacent to the right greater trochante r consistent with trochanteric bursitis and associated partial tearing/tendino sis of the gluteal tendons at the greater trochanteric insertion site. There i s mild gluteal muscle atrophy. There is insertional hamstring tendinosis. T he remainder the visualized muscles are normal in size and morphology. Th e visualized neurovascular bundles are intact. Impression: No acute fract ure, subluxation or avascular necrosis about the right hip. Moderate soft t issue edema and fluid signal intensity adjacent to the right hip greater troch anter consistent with trochanteric bursitis and associated partial tearing/ten dinosis of the gluteal tendons. Mild insertional hamstring tendinosis. Signed by: Dr. Deanna Daniels M.D. on 05/11/2018 8:36 AM Dictated By: Surekha DANIELS MD, MD 08 36 Transcribed By: ARUNA on 05/11/18835 COPY TO: TUESDAYRAUL MD RENAL RETROPERITONEAL ICNX1250-95-88 12:03:00 [address] [address] Patient Name: LENIN MENDEZ MR #: [id number] : 1940 Age/Sex: 77/F Req #: [id number] Adm Physician: Ordered by: PATO BOLAÑOS MD Report #: [id number] Location: Room/Bed: Procedure: [id number] US/US RENAL RETROPERITONEAL COMP Exam Date: Exam Time: REPORT STATUS: Signed Renal ultrasound dated 05/03/2018. History: Chronic kidney disease Discussion: Transverse and longitudinal images of the kidneys were [facility] normal renal sizes and echogenicities. There is no evidence of hy dronephrosis or mass. The right kidney measures 10.2 x 5.4 x 6.9 cm and the le ft kidney measures 9.8 x 4.7 x 5.0 cm. Renal cortical thickness is 1.7 cm on t he right and 1.6 cm on the left. Small hypoechoic region in the mid polar area of the right kidney likely represents a cyst measuring 2.3 cm. There is a hyperechoic foci in the left kidney mid polar region with out evidence of hyd ronephrosis that likely represents a 6 mm nonobstructing renal stone. Th e urinary bladder is unremarkable. There is no evidence of free fluid. I MPRESSION: 1. No evidence of hydronephrosis. 2. Right renal cyst and non obstructing left renal stone. Signed by: Dr. Amado Martínez DO on 8 12:07 PM Dictated By: AMADO MARTÍNEZ DO 06 Transcribed By: ARUNA on 05/03/181206 COPY TO: PATO BOLAÑOS MD CHEST 2 PHWJE5317-77-72 14:13:[address] [address] Patient Name: LENIN MENDEZ MR #: [id number] : 1940 Age/Sex: 77/F Req #: [id number] Adm Physician: Ordered by: PATO BOLAÑOS MD Report #: [id number] Location: [facility] Room/Bed: Procedure: [id number] DX/CHEST 2 VIEWS Exam Date: Exam Time: 1350 REPORT STATUS: Signed Frontal and lateral views of the chest. HISTORY: Cough, hemoptysis COMP ARISON: Chest radiographs January 10, 2014 and March 11, 2014. DISCUSSI ON: Lungs: Low lung volumes result in bibasilar vascular crowding, a ccentuation of the pulmonary interstitial markings, central pulmonary vasculat ure, and the cardiac silhouette. Allowing for these limitations, the findings are as follows: No evidence of a consolidative pneumonia or pulmonary alveo lar edema. A stable 3 mm nodular density projects at the periphery of the mid left lung on the frontal view, likely calcified granuloma. Stable appearing mildly prominent central peribronchial interstitial markings. No consolidative pneumonia or pulmonary alveolar edema. Pleura: No pleural effusion or pneumothorax. Heart and mediastinum: The cardiac silhouette appears mil dly enlarged.. Bones: Accentuation of the thoracic kyphosis. Metallic anterior cervical/thoracic hardware, partially evaluated. IMPRESSION: 1. Findings which could be seen in the setting of a nonspecific bronchitis. 2. No consolidative pneumonia or pulmonary alveolar edema. Signed by: Dr. Jared Estevez D.O., M.M.M. on 04/11/2018 2:26 PM Dictated By: JARED ESTEVEZ DO 25 Transcribed By: Surekha MERRITT on 04/11/181425 COPY TO: PATO BOLAÑOS MD CT ABDOMEN/PELVIS [id number] 22:17:00 [address] [address] Patient Name: LENIN MENDEZ MR #: [id number] : 1940 Age/Sex: 77/F Req #: [id number] Adm Physician: Ordered by: ESTIVEN GRANADO MD Report #: [id number] Location: ER Room/Bed: Procedure: [id number] CT/CT ABDOMEN/PELVIS WO Exam Date : Exam Time: REPORT STATUS: Signed EXAM: C T ABDOMEN/PELVIS WO DATE: 03/31/2018 9:18 PM INDICATION: Abdominal pain, S Look for stone, SBO, appy, colitis S Y COMPARISON: 04/14/2016 TECHNIQUE: T he abdomen and pelvis were scanned using a multidetector helical scanner. Noemi nal and sagittal reformations were obtained. CT low dose techniques were util ized, as applicable. IV Contrast: 0 ml Isovue 300/370 FINDINGS: Lack o f IV contrast decreases sensitivity in evaluating abdominal and pelvic organs. LOWER THORAX: No consolidations LIVER/BILIARY: No masses. Stable bilia ry ductal dilation, common bile duct measuring 1.4 cm.. GALLBLADDER: Unre markable SPLEEN: Unremarkable PANCREAS: Unremarkable ADRENALS: Stable n odular thickening of the left adrenal KIDNEYS: No stones. No hydronephrosis. GI TRACT: Postsurgical changes are again seen about the stomach. No evid ence of bowel obstruction or appendicitis. VESSELS: Mild atherosclerotic calcifications PERITONEUM/RETROPERITONEUM: No free air or fluid LYMPH NODES: No lymphadenopathy REPRODUCTIVE ORGANS/BLADDER: Hysterectomy. Otherwise un remarkable SOFT TISSUES: Unremarkable BONES: Multilevel degenerative mcdonald ges. IMPRESSION: No acute abnormality on noncontrast evaluation. No signi ficant change from prior. Signed by: Dr Ervin Arechiga MD on 03/31/2018 10: 22 PM Dictated By: ERVIN ARECHIGA MD 21 Transcribed By: ARUNA on 03/31/182221 COPY TO: ESTIVEN GRANADO MD CT BRAIN [id number] 22:00:00 [address] [address] Patient Name: LENIN MENDEZ MR #: [id number] : 1940 Age/Sex: 77/F Req #: [id number] Adm Physician: Ordered by: ESTIVEN GRANADO MD Report #: [id number] Location: ER Room/Bed: Procedure: [id number] CT/CT BRAIN WO Exam Date: Exam Time: REPORT STATUS: Signed EXAMINATION: Head CT HISTORY: Status post fall the day before, dizziness, pain, trauma C OMPARISON: Head CT on 12/04/2015 TECHNIQUE: Multidetector axial images were obt ained without contrast from the foramen magnum to the vertex . The images were reconstructed using brain and bone algorithms. Thin section brain images were reformatted into coronal and sagittal planes. Image quality: Motion/streak ing artifact limits the evaluation of the skull base and posterior cranial fos sa. Dose modulation, iterative reconstruction, and/or weight based adjustme nt of the mA/kV was utilized to reduce the radiation dose to as low as reasona chandler achievable. FINDINGS: Parenchyma: 1. Persistent mild chronic microvascular ischemic changes. 2. No mass or hemorrhage. No CT evid ence of acute territorial vascular insult. Extra-axial spaces:N o abnormal density. No extra-axial fluid collections Brain volume: Mild generalized brain volume loss, unchanged from prior study.. Ventricles : No hydrocephalus or displacement. Arteries: No density suggestive of thrombus. Dural sinuses: No abnormal density. Extra-axial spaces : No abnormal density. Foramen magnum: No mass, Chiari malformation, or basilar invagination. Sella: No obvious mass. Paranasal/mastoid sinuses: Imaged portions unremarkable. Skull/Scalp: No lytic or blastic lesions. No fractures. Orbits: Left scleral band. IMPRESSION: 1. No acute posttraumatic intracranial hemorrhage. 2. Persistent mild chronic disease manager sheba microvascular ischemic changes. Unchanged from head CT 12/04/2015. Sig maya by: Dr. Helena Mondragon M.D. on 03/31/2018 10:02 PM Dictated By: HELENA LOMAX MD 01 Transcribed By : ARUNA on 03/31/182201 COPY TO: ESTIVEN GRANADO MD Sodium Level 2018-03-31 21:16:00* Test Item Value Reference Range Interpretation Comments Sodium Level (test code = 2951-2) 139 136-145 [facility] CenterPotassium Xpcdg0500-78-77 21:16:00* Test Item Value Reference Range Interpretation Comments Potassium Level (test code = 2823-3) 4.4 3.5-5.1 [facility] CenterChloride Gyjlt7687-85-94 21:16:00* Test Item Value Reference Range Interpretation Comments Chloride Level (test code = 2075-0) 100 98-107 [facility] CenterCarbon Dioxide Bwljm8123-68-84 21:16:00* Test Item Value Reference Range Interpretation Comments Carbon Dioxide Level (test code = 2028-9) 26 22-29 [facility] CenterAnion Gtu8479-29-46 21:16:00* Test Item Value Reference Range Interpretation Comments Anion Gap (test code = 55303-8) 17.4 8-16 H [facility] CenterBlood Urea Puhpfgbe2160-82-83 21:16:00* Test Item Value Reference Range Interpretation Comments Blood Urea Nitrogen (test code = 3094-0) 53 7-26 H [facility] CenterCreatinine2018-09-07 21:16:00* Test Item Value Reference Range Interpretation Comments Creatinine (test code = 2160-0) 1.58 0.57-1.11 H [facility] CenterBUN/Creatinine Uqfkk4357-88-07 21:16:00* Test Item Value Reference Range Interpretation Comments BUN/Creatinine Ratio (test code = 3097-3) 34 6-25 H [facility] CenterEstimat Glomerular Filtration Rate 2018-03-31 21:16:00* Test Item Value Reference Range Interpretation Comments Estimat Glomerular Filtration Rate (test code = 56785-8) 32 >60 L Ranges were taken from the National Kidney Disease Education Program and the [facility] Kidney Foundation literature.Reference ranges:60 or greater: Bcazmx08-56 ( for 3 consecutive months): Chronic kidney disease 15 or less: Kidney failureGrace Medical CenterGlucose Tonjq3910-93-25 21:16:00* Test Item Value Reference Range Interpretation Comments Glucose Level (test code = LUX7723) 104 74-118 [facility] CenterCalcium Ztvuo0220-14-92 21:16:00* Test Item Value Reference Range Interpretation Comments Calcium Level (test code = 36861-9) 10.0 8.4-10.2 [facility] CenterTotal Epfvtdhgo4985-99-86 21:16:00* Test Item Value Reference Range Interpretation Comments Total Bilirubin (test code = 1975-2) 0.5 0.2-1.2 [facility] CenterAspartate Amino Transf (AST/SGOT) 2018-03-31 21:16:00* Test Item Value Reference Range Interpretation Comments Aspartate Amino Transf (AST/SGOT) (test code = Aspartate Amino Transf (AST/SGOT)) 21 5-34 [facility] CenterAlanine Aminotransferase (ALT/SGPT) 2018-03-31 21:16:00* Test Item Value Reference Range Interpretation Comments Alanine Aminotransferase (ALT/SGPT) (test code = 1742-6) 15 0-55 [facility] CenterTotal Nkarvsl7144-59-27 21:16:00* Test Item Value Reference Range Interpretation Comments Total Protein (test code = 2885-2) 8.2 6.5-8.1 H [facility] CenterAlbumin2018-09-07 21:16:00* Test Item Value Reference Range Interpretation Comments Albumin (test code = 1751-7) 4.1 3.5-5.0 [facility] CenterGlobulin2018-09-07 21:16:00* Test Item Value Reference Range Interpretation Comments Globulin (test code = 94732-6) 4.1 2.3-3.5 H [facility] CenterAlbumin/Globulin Atalq5922-85-42 21:16:00 * Test Item Value Reference Range Interpretation Comments Albumin/Globulin Ratio (test code = 1759-0) 1.0 0.8-2.0 [facility] CenterAlkaline Wolouoziavj7847-61-55 21:16:00* Test Item Value Reference Range Interpretation Comments Alkaline Phosphatase (test code = 6768-6) 93 40-150 [facility]Creat[facility] [id number] 21:16:00* Test Item Value Reference Range Interpretation Comments Creatine Kinase (test code = 2157-6) 180 29-168 H [facility] Kinase [id number] 21:16:00* Test Item Value Reference Range Interpretation Comments Creatine Kinase MB (test code = 09980-5) 3.90 0-5.0 [facility]Troponin [id number] 21:16:00* Test Item Value Reference Range Interpretation Comments Troponin I (test code = YTT2127) 0.011 0-0.300 [facility]Am[facility] [id number] 21:16:00* Test Item Value Reference Range Interpretation Comments Amylase Level (test code = 1798-8) 61 25-125 [facility]Lipase2018-09-07 21:16:00* Test Item Value Reference Range Interpretation Comments Lipase (test code = 3040-3) 28 8-78 [facility] [id number] 20:54:00* Test Item Value Reference Range Interpretation Comments Urine WBC (test code = 5821-4) NONE 0-5 [facility] [id number] 20:54:00* Test Item Value Reference Range Interpretation Comments Urine RBC (test code = 62779-1) NONE 0-5 [facility] [id number] 20:54:00* Test Item Value Reference Range Interpretation Comments Urine Bacteria (test code = 39550-0) MODERATE NONE [facility] Epithelial [id number] 20:54:00 * Test Item Value Reference Range Interpretation Comments Urine Epithelial Cells (test code = 90779-5) MODERATE NONE [facility] [id number] 20:46:00* Test Item Value Reference Range Interpretation Comments Urine Color (test code = 5778-6) YELLOW YELLOW [facility] [id number] 20:46:00* Test Item Value Reference Range Interpretation Comments Urine Clarity (test code = 13969-2) SL CLOUDY CLEAR [facility] Specific [id number] 20:46:00 * Test Item Value Reference Range Interpretation Comments Urine Specific Logan (test code = 5811-5) 1.005 1.010-1.02 5 L [facility] [id number] 20:46:00* Test Item Value Reference Range Interpretation Comments Urine pH (test code = 95011-1) 6 5-7 [facility] Leukocyte [id number] 20:46:00* Test Item Value Reference Range Interpretation Comments Urine Leukocyte Esterase (test code = 5799-2) NEGATIVE NEGATIVE [facility] [id number] 20:46:00* Test Item Value Reference Range Interpretation Comments Urine Nitrite (test code = 37090-9) NEGATIVE NEGATIVE [facility] [id number] 20:46:00* Test Item Value Reference Range Interpretation Comments Urine Protein (test code = 5804-0) NEGATIVE NEGATIVE [facility] Glucose (UA)2018-03-31 20:46:00* Test Item Value Reference Range Interpretation Comments Urine Glucose (UA) (test code = 2349-9) NEGATIVE NEGATIVE [facility] [id number] 20:46:00* Test Item Value Reference Range Interpretation Comments Urine Ketones (test code = 59231-7) NEGATIVE NEGATIVE [facility] [id number] 20:46:00* Test Item Value Reference Range Interpretation Comments Urine Urobilinogen (test code = 51504-1) 0.2 0.2-1 [facility] [id number] 20:46:00* Test Item Value Reference Range Interpretation Comments Urine Bilirubin (test code = 1978-6) NEGATIVE NEGATIVE [facility] [id number] 20:46:00* Test Item Value Reference Range Interpretation Comments Urine Blood (test code = 41030-8) TRACE NEGATIVE H [facility] CenterWhite Blood [id number] 20:12:00* Test Item Value Reference Range Interpretation Comments White Blood Count (test code = 6690-2) 7.66 4.8-10.8 [facility] Blood [id number] 20:12:00* Test Item Value Reference Range Interpretation Comments Red Blood Count (test code = 789-8) 4.06 3.6-5.1 [facility] CenterHemoglobin2018-09-07 20:12:00* Test Item Value Reference Range Interpretation Comments Hemoglobin (test code = 18899-0) 12.8 12.0-16.0 [facility] CenterHematocrit2018-09-07 20:12:00* Test Item Value Reference Range Interpretation Comments Hematocrit (test code = 4544-3) 38.1 34.2-44.1 [facility] CenterMean Corpuscular [id number] 20:12:00* Test Item Value Reference Range Interpretation Comments Mean Corpuscular Volume (test code = 787-2) 93.8 81-99 [facility] CenterMean Corpuscular [id number] 20:12:00* Test Item Value Reference Range Interpretation Comments Mean Corpuscular Hemoglobin (test code = 785-6) 31.5 28-32 [facility] CenterMean Corpuscular Hemoglobin Concent 2018-03-31 20:12:00* Test Item Value Reference Range Interpretation Comments Mean Corpuscular Hemoglobin Concent (test code = 786-4) 33.6 31-35 [facility] CenterRed Cell Distribution [id number] 20:12:00* Test Item Value Reference Range Interpretation Comments Red Cell Distribution Width (test code = 08721-6) 13.2 11.7 -14.4 [facility] CenterPlatelet [id number] 20:12:00* Test Item Value Reference Range Interpretation Comments Platelet Count (test code = 777-3) 209 140-360 [facility] CenterNeutrophils (%) (Auto)2018-03-31 20:12:00 * Test Item Value Reference Range Interpretation Comments Neutrophils (%) (Auto) (test code = 44977-1) 64.6 38.7-80.0 [facility] CenterLymphocytes (%) (Auto)2018-03-31 20:12:00 * Test Item Value Reference Range Interpretation Comments Lymphocytes (%) (Auto) (test code = 736-9) 26.0 18.0-39.1 [facility] CenterMonocytes (%) (Auto)2018-03-31 20:12:00* Test Item Value Reference Range Interpretation Comments Monocytes (%) (Auto) (test code = 5905-5) 7.3 4.4-11.3 [facility] CenterEosinophils (%) (Auto)2018-03-31 20:12:00 * Test Item Value Reference Range Interpretation Comments Eosinophils (%) (Auto) (test code = 713-8) 1.0 0.0-6.0 [facility] CenterBasophils (%) (Auto)2018-03-31 20:12:00* Test Item Value Reference Range Interpretation Comments Basophils (%) (Auto) (test code = 706-2) 0.8 0.0-1.0 [facility] CenterIM GRANULOCYTES %2018-03-31 20:12:00* Test Item Value Reference Range Interpretation Comments IM GRANULOCYTES % (test code = IM GRANULOCYTES %) 0.3 0.0- 1.0 [facility] CenterNeutrophils # (Auto)2018-03-31 20:12:00* Test Item Value Reference Range Interpretation Comments Neutrophils # (Auto) (test code = 751-8) 5.0 2.1-6.9 [facility] CenterLymphocytes # (Auto)2018-03-31 20:12:00* Test Item Value Reference Range Interpretation Comments Lymphocytes # (Auto) (test code = 43833-8) 2.0 1.0-3.2 [facility] CenterMonocytes # (Auto)2018-03-31 20:12:00* Test Item Value Reference Range Interpretation Comments Monocytes # (Auto) (test code = 742-7) 0.6 0.2-0.8 [facility] CenterEosinophils # (Auto)2018-03-31 20:12:00* Test Item Value Reference Range Interpretation Comments Eosinophils # (Auto) (test code = 711-2) 0.1 0.0-0.4 [facility] CenterBasophils # (Auto)2018-03-31 20:12:00* Test Item Value Reference Range Interpretation Comments Basophils # (Auto) (test code = 704-7) 0.1 0.0-0.1 [facility] CenterAbsolute Immature Granulocyte (auto 2018-03-31 20:12:00* Test Item Value Reference Range Interpretation Comments Absolute Immature Granulocyte (auto (pam t code = Absolute Immature Granulocyte (auto) 0.02 0-0.1 [facility]
--- NOTE | 2020-06-16 17:45 | Diagnostic Imaging Report ---
History:Fall Comparison studies: None Technique: Axial images were obtained from the skull base to the vertex. Coronal and sagittal images reconstructed from the axial data. Dose modulation, iterative reconstruction, and/or weight based adjustment of the mA/kV was utilized to reduce the radiation dose to as low as reasonably achievable. Intravenous contrast: None Findings: Scalp/skull: No abnormalities. Extra-axial spaces: No masses. No fluid collections. Brain sulci: Mildly prominent. Ventricles: Mild compensatory dilatation. No hydrocephalus. Parenchyma: No abnormal densities. No masses, hemorrhage, acute or chronic cortical vascular insults. Sellar/suprasellar region: No abnormalities. Craniocervical junction: Patent foramen magnum. No Chiari one malformation. Incidental findings: Subtle calcifications in the carotid siphons . Scleral band in the left globe. Artificial lenses bilaterally. Impression: 1. Acute left supraorbital superficial hematoma. 2. No fractures. 3. No acute intracranial abnormalities. 4. Mild age-related generalized volume loss. Signed by: Dr. Eugenio Whitten M.D. on 06/16/2020 5:42 PM
--- NOTE | 2020-06-16 17:50 | Diagnostic Imaging Report ---
History: Trauma Comparison studies: None Technique: Axial images were obtained through the cervical region. Coronal and sagittal images reconstructed from the axial data. Dose modulation, iterative reconstruction, and/or weight based adjustment of the mA/kV was utilized to reduce the radiation dose to as low as reasonably achievable. Intravenous contrast: None Findings: Alignment: Slight reversal of the usual cervical lordosis at C5. No scoliosis. Cervicomedullary junction: No abnormalities. The foramen magnum is patent. Soft tissues: No prevertebral soft tissue swelling. No masses or calcifications. Postsurgical changes: Patient status post anterior cervical fusion from C6 through T1. Hardware in place. The intervening disc spaces are fused. Vertebrae: Normal in height and density. No fractures, infection or neoplasms. Degenerative changes: Mildly degenerated disc at C4-5, moderate at C5-6, mild at T1-T2. Moderate right facet arthrosis at C3-C4, C4-C5 without foraminal stenosis Moderate left foraminal stenosis at C5-6 due to uncoarthrosis. Patent spinal canal Incidental findings: Atherosclerotic calcifications at the right subclavian artery, right carotid bulb and intracranial right vertebral artery. IMPRESSION: 1. No acute abnormalities. 2. Specifically, no fractures or subluxations. 3. Cannot adequately evaluate for spinal cord, vascular or ligament abnormalities. 4. Postsurgical and degenerative changes as described. Signed by: Dr. Eugenio Whitten M.D. on 06/16/2020 5:46 PM
--- NOTE | 2020-06-16 17:52 | Diagnostic Imaging Report ---
History:Fall Comparison studies: None Technique: Axial images were obtained through the maxillofacial region. Coronal and sagittal images reconstructed from the axial data. Dose modulation, iterative reconstruction, and/or weight based adjustment of the mA/kV was utilized to reduce the radiation dose to as low as reasonably achievable. Intravenous contrast: None Findings: Soft tissues: An acute left periorbital superficial hematoma is associated with subcutaneous emphysema and a focal supraorbital laceration Bones: No fractures or bone abnormalities. Orbits: Globes: Artificial lenses in place. A scleral band is seen on the left Extra or intraconal abnormalities: None. Paranasal sinuses: Clear IMPRESSION: 1. Acute left orbital facial hematoma with an overlying supraorbital superficial laceration. 2. No fractures. 3. No additional acute maxillofacial abnormalities. Signed by: Dr. Eugenio Whitten M.D. on 06/16/2020 5:48 PM
[2020-06-16 18:08] LABS: INR 1.97; PROTHROMBIN TIME 23.4 seconds (11.9-14.5)
[2020-06-16 18:09] LABS: PARTIAL THROMBOPLASTIN TIME 40.4 seconds (23.8-35.5)
[2020-06-16] MEDS: TETANUS/DIPHTHERIA TOX ADULT 0.5 ML SYR IM ONE (18:09)
--- NOTE | 2020-06-16 18:28 | Emergency Department Note ---
History of Present Illnes History of Present Illness Chief Complaint: General Medicine Complaints History of Present Illness This is a 79 year old female on Coumadin here after she had a mechanical fall trip and hit herself over her left orbit. Vision complaining of nvom-wb-egmldzpw pain to left periorbital area, denies LOC. Unknown what her Coumadin level is. Denies any other injuries has been ambulatory, was sent here by PCP for a CT scan.. Historian: Patient Arrival Mode: Car Onset (how long ago): hour(s) (10) Location: head, L orbit Quality: ache Severity: moderate Onset quality: gradual Timing of current episode: constant Progression: worsening Chronicity: new Context: Denies recent illness, Denies recent surgery Relieving factors: none Exacerbating factors: none Associated symptoms: Reports denies other symptoms Treatments prior to arrival: none Past Medical/Family History Physician Review I have reviewed the patient's past medical and family history. Any updates have been documented here. Past Medical History Recent Fever: No Clinical Suspicion of Infectio: No New/Unexplained Change in Ment: No Past Medical History: Hypertension, A-Fib, Anxiety, Hyperlipedemia Other Medical History: neuropathy HX OF VERTIGO bowel obstruction Past Surgical History: Appendectomy, Hysterectomy Other Surgery: bilateral shoulder repair rle tendon repair neck surgery ESOPHAGUS GASTRO SX Other Last Tetanus: utd Review of Systems Review of Systems Constitutional: Reports no symptoms EENTM: Reports no symptoms Cardiovascular: Reports no symptoms Respiratory: Reports no symptoms Gastrointestinal: Reports no symptoms Genitourinary: Reports no symptoms Musculoskeletal: Reports no symptoms Integumentary: Reports no symptoms Neurological: Reports no symptoms Psychological: Reports no symptoms Endocrine: Reports no symptoms Hematological/Lymphatic: Reports no symptoms Physical Exam Related Data Allergies: Coded Allergies: bacitracin (Verified Allergy, Intermediate, RASH, 02/14/15) clarithromycin (Verified Allergy, Intermediate, RASH, 02/14/15) Penicillins (Verified Allergy, Mild, TONGUE SWELLS,MOUTH RASH, 02/14/15) cephalexin (Verified Allergy, Mild, TONGUE SWELLS,MOUTH RASH, 02/14/15) levofloxacin (Verified Allergy, Mild, ligament problems, 02/14/15) pentazocine (Verified Allergy, Mild, HEART FLUTTERS, 02/14/15) Pentazocine Lactate (Verified Allergy, Unknown, PT. DOESN'T REMEMBER EFFECT, 04/01/18) ofloxacin (Verified Allergy, Unknown, PT DOESN'T REMEMBER EFFECT., 04/01/18) amoxicillin trihydrate (Verified Adverse Reaction, Unknown, NAUSEA/VOMITING, 04/01/18) potassium clavulanate (Verified Adverse Reaction, Unknown, NAUSEA/VOMITING, 04/01/18) Triage Vital Signs Vital Signs Date Time Temp Pulse Resp B/P (MAP) Pulse Ox O2 Delivery O2 Flow Rate FiO2 06/16/20 16:30 98.3 112 20 104/57 97 Room Air Vital signs reviewed: Yes Physical Exam CONSTITUTIONAL Constitutional: Present well-developed, Present well-nourished HENT HENT: Present normocephalic, Present atraumatic, Present oropharynx mayur r/moist, Present nose normal HENT L/R: Present left ext ear normal, Present right ext ear normal EYES Eyes: Reports PERRL, Reports conjunctivae normal, Reports other (patient with periorbital edema and ecchymosis to the left eye no hyphema.) NECK Neck: Present ROM normal PULMONARY Pulmonary: Present effort normal, Present breath sounds normal CARDIOVASCULAR Cardiovascular: Present regular rhythm, Present heart sounds normal, Present capillary refill normal, Present normal rate GASTROINTESTINAL Abdominal: Present soft, Present nontender, Present bowel sounds normal GENITOURINARY Genitourinary: Present exam deferred SKIN Skin: Present warm, Present dry MUSCULOSKELETAL Musculoskeletal: Present ROM normal NEUROLOGICAL Neurological: Present alert, Present oriented x 3, Present no gross motor or sensory deficits PSYCHOLOGICAL Psychological: Present mood/affect normal, Present judgement normal Results Laboratory Laboratory Laboratory Tests Test 06/16/20 17:30 Prothrombin Time 23.4 seconds (11.9-14.5) Prothromb Time International Ratio 1.97 Activated Partial Thromboplast Time 40.4 seconds (23.8-35.5) Assessment & Plan Medical Decision Making MDM Since a 79-year-old female with a mechanical fall, no LOC, Coumadin level is 2. Patient with 10 hours since her injury, we'll continue watchful waiting at home and treat him symptomatically. CT did not show any bleed or fracture. Assessment & Plan Final Impression: (1) Fall (2) Facial contusion Depart Disposition: HOME, SELF-CARE Last Vital Signs Date Time Temp Pulse Resp B/P (MAP) Pulse Ox O2 Delivery O2 Flow Rate FiO2 06/16/20 18:08 60 16 165/77 97 06/16/20 16:30 98.3 Room Air Home Meds Reported Medications Rosuvastatin Calcium (CRESTOR) 10 Mg Tab, 10 MG PO HS THERAPEUTICALLY SUBSTITUTED WITH SIMVASTATIN 40MG 11/03/19 Potassium Chloride (KLOR-CON 10) 10 Meq Tablet.er, 1 TAB PO BID 11/03/19 Metoprolol Tartrate (METOPROLOL TARTRATE) 25 Mg Tablet, 25 MG PO HS, TAB 11/03/19 Acetaminophen With Codeine (TYLENOL WITH CODEINE #3 TABLET) 1 Each Tablet, 300 MG PO Q4HR PRN for PAIN, TAB 10/30/19 Triamcinolone Acetonide (Nasacort) 16.9 Ml Rodney, 2 SPRAYS NA PRN 10/30/19 [Ducolax] No Conflict Check, PO PRN 10/30/19 [Phazime] No Conflict Check, 250 MG PO BID PRN for PRN 10/30/19 Cetirizine Hcl (ZYRTEC) 10 Mg Tablet, 10 MG PO DAILY THERAPEUTICALLY SUBSTITUTED WITH LORATADINE 10MG 10/30/19 Ferrous Gluconate (FERROUS GLUCONATE) 324 Mg Tablet, 324 MG PO BID 10/30/19 Levothyroxine Sodium (LEVOTHYROXINE SODIUM) 50 Mcg Tablet, 150 MCG PO DAILY, #30 TAB 4DAYS/WK 10/30/19 Levothyroxine Sodium (SYNTHROID) 75 Mcg Tab, 75 MCG PO, #30 TAB 3DAYS/WK 02/14/15 Lisinopril (LISINOPRIL) 10 Mg Tablet, 5 MG PO HS, #30 TAB 04/23/14 Furosemide (LASIX) 40 Mg Tablet, 20 MG PO, #30 TAB QOD 04/23/14 Warfarin Sodium (COUMADIN) 5 Mg Tablet, 5 MG PO, #30 TAB TAKE DAILY EXCEPT SATURDAYS 6DAYS/WK 01/30/14 Pantoprazole Sodium* (PROTONIX) 40 Mg Tablet.dr, 40 MG PO TID 05/03/13 Carisoprodol (SOMA) 250 Mg Tab, 350 MG PO QID 05/03/13 Metoprolol Succinate (TOPROL XL) 50 Mg Tab.er.24h, 50 MG PO QAM 10/02/12 Carbamazepine (TEGRETOL) 200 Mg Tablet, 600 MG PO BEDTIME 10/02/12 Buspirone Hcl (BUSPIRONE HCL) 10 Mg Tablet, 15 MG PO TID 08/09/12 Medications in the ED Tetanus/ Diphtheria Toxoids 0.5 ml ONCE ONCE IM Last administered on 06/16/20at 18:09; Admin Dose 0.5 ML; Start 06/16/20 at 17:00; Stop 06/16/20 at 17:01; Status DC ZHEN HENDERSON MD Jun 16, 2020 18:28
== END 2020-06-16 18:33 | disposition home or self-care (01) ==
LOC: ER 17:14
DX: S05.12XA Contusion of eyeball and orbital tissues, left eye, initial encounter (principal); W01.0XXA Fall on same level from slipping, tripping and stumbling without subsequent striking against object, initial encounter; Y93.01 Activity, walking, marching and hiking; Y92.008 Other place in unspecified non-institutional (private) residence as the place of occurrence of the external cause; I10 Essential (primary) hypertension; E78.5 Hyperlipidemia, unspecified; I48.91 Unspecified atrial fibrillation; F41.9 Anxiety disorder, unspecified
CPT/HCPCS: 36415; 70450; 70486; 72125; 85610; 85730; 90714; 99284

== ENCOUNTER 2020-07-16 16:39 | Emergency (ER) | payer MEDICARE ==
[~2020-07-16] VITALS: Ht 167.6 cm; Wt 79.4 kg
[2020-07-16] MEDS ORDERED: HYDROCODONE/APAP 5MG-325MG TAB PO ONE (17:30)
[2020-07-16 17:46] LABS: CLARITY,URINE SL CLOUDY (CLEAR); COLOR,URINE YELLOW (YELLOW); KETONES,URINE NEGATIVE (NEGATIVE); LEUKOCYTE ESTERASE ,URINE SMALL (NEGATIVE); NITRITE,URINE NEGATIVE (NEGATIVE); PROTEIN,URINE DIPSTICK NEGATIVE (NEGATIVE); URINE UROBILINOGEN 0.2 mg/dL (0.2 - 1)
[2020-07-16 18:07] LABS: RBC,URINE 0-5 /HPF (0-5)
[2020-07-16 18:08] LABS: BACTERIA,URINE FEW /HPF; EPITHELIAL CELLS,URINE FEW /LPF
[2020-07-16] MEDS ORDERED: ULTRAM50 MG PO (19:15)
== END 2020-07-16 23:14 | disposition home or self-care (01) ==
LOC: ER 17:08
DX: S00.83XA Contusion of other part of head, initial encounter (principal); W01.198A Fall on same level from slipping, tripping and stumbling with subsequent striking against other object, initial encounter; Y93.01 Activity, walking, marching and hiking; Y92.008 Other place in unspecified non-institutional (private) residence as the place of occurrence of the external cause; Z79.01 Long term (current) use of anticoagulants; I10 Essential (primary) hypertension; E78.5 Hyperlipidemia, unspecified; G62.9 Polyneuropathy, unspecified; I48.91 Unspecified atrial fibrillation; F41.9 Anxiety disorder, unspecified
CPT/HCPCS: 70450; 71045; 72110; 72125; 81001; 99283

== ENCOUNTER → 2020-08-15 | Outpatient (CLI) | payer MEDICARE ==
[~2020-08-15] MED LIST changes: +IOPAMIDOL 370 MG/ML 200 ML INFUS..BTL INJ ONE; +SODIUM CHLORIDE 0.9% 500ML 500 ML ONE; +SODIUM CHLORIDE 0.9% 50ML 50 ML ONE; +ULTRAM50 MG PO
== END ==
LOC: CT 11:42
PROVIDERS: ATTEND Internal Medicine Gastroenterology
DX: R10.13 Epigastric pain (principal)
CPT/HCPCS: 36415; 74177; 82565; 84520; 96360; J7040; Q9967

== ENCOUNTER → 2020-09-24 | Day surgery (SDC) | payer MEDICARE ==
[2020-09-05 13:44] LABS: BASOPHILS # (AUTO) 0.1 (0.0-0.1); BASOPHILS % 0.7 % (0.0-1.0); EOSINOPHILS # (AUTO) 0.1 (0.0-0.4); EOSINOPHILS % 1.8 % (0.0-6.0); HEMATOCRIT 34.8 % (34.2-44.1); LYMPHOCYTES # (AUTO) 1.9 (1.0-3.2); LYMPHOCYTES % 25.2 % (18.0-39.1); MEAN CORPUSCULAR HEMOGLOBIN 30.1 pg (28-32); MEAN CORPUSCULAR HGB CONC 31.6 g/dL (31-35); MEAN CORPUSCULAR VOLUME 95.3 fL (81-99); MONOCYTES # (AUTO) 0.6 (0.2-0.8); MONOCYTES % 8.2 % (4.4-11.3); NEUTROPHILS # (AUTO) 4.9 (2.1-6.9); NEUTROPHILS % 63.6 % (38.7-80.0); PLATELET COUNT 181 x10e3/uL (140-360); RED BLOOD COUNT 3.65 x10e6/uL (3.6-5.1); RED CELL DISTRIBUTION WIDTH 13.9 % (11.7-14.4)
[~2020-09-24] MED LIST changes: -IOPAMIDOL 370 MG/ML 200 ML INFUS..BTL INJ ONE; +LIDOCAINE HCL 2% LOCAL INJ 5 ML SDV VIAL INJ ONE; +METOCLOPRAMIDE HCL 10 MG/2ML VIAL ONE; +PANTOPRAZOLE 40 MG 10ML VIAL ONE; +PROPOFOL IV EMULSION 10 MG/ML 20 ML VIAL ONE; +SENOKOT-S TABL1 EACH PO; -SODIUM CHLORIDE 0.9% 500ML 500 ML ONE; -SODIUM CHLORIDE 0.9% 50ML 50 ML ONE
[2020-09-24 11:45] LABS: INR 1.05; PROTHROMBIN TIME 14.4 seconds (11.9-14.5)
[2020-09-24 11:46] LABS: PARTIAL THROMBOPLASTIN TIME 31.8 seconds (23.8-35.5)
[2020-09-24 13:30] VITALS: BP 131/81
[2020-09-24 13:46] LABS: INR 1.11
== END | disposition home or self-care (01) ==
LOC: OR 10:26
PROVIDERS: ATTEND Internal Medicine Gastroenterology
DX: K22.2 Esophageal obstruction (principal); K31.7 Polyp of stomach and duodenum; K83.1 Obstruction of bile duct; K28.9 Gastrojejunal ulcer, unspecified as acute or chronic, without hemorrhage or perforation; K22.10 Ulcer of esophagus without bleeding; K21.9 Gastro-esophageal reflux disease without esophagitis; Z98.84 Bariatric surgery status; M19.90 Unspecified osteoarthritis, unspecified site; G62.9 Polyneuropathy, unspecified; I25.10 Atherosclerotic heart disease of native coronary artery without angina pectoris; E03.9 Hypothyroidism, unspecified; N20.0 Calculus of kidney; I10 Essential (primary) hypertension; I48.91 Unspecified atrial fibrillation; Z01.810 Encounter for preprocedural cardiovascular examination; Z01.812 Encounter for preprocedural laboratory examination; Z20.822 Contact with and (suspected) exposure to COVID-19; Z79.01 Long term (current) use of anticoagulants
CPT/HCPCS: 36415 ×2; 43239; 43450; 85025; 85610; 85730; 88305; 88312; 93005; C9113; J2001; J2704; J2765; U0002 ×2

== ENCOUNTER → 2020-11-07 | Outpatient (CLI) | payer MEDICARE ==
[~2020-11-07] MED LIST changes: +IOPAMIDOL 370 MG/ML 200 ML INFUS..BTL INJ ONE; -LIDOCAINE HCL 2% LOCAL INJ 5 ML SDV VIAL INJ ONE; -METOCLOPRAMIDE HCL 10 MG/2ML VIAL ONE; -PANTOPRAZOLE 40 MG 10ML VIAL ONE; -PROPOFOL IV EMULSION 10 MG/ML 20 ML VIAL ONE; +SODIUM CHLORIDE 0.9% 50ML 50 ML ONE
[2020-11-07 15:06] LABS: BLOOD UREA NITROGEN 11 mg/dL (7-26); BUN/CREATININE RATIO 15 (6-25); CREATININE, SERUM 0.75 mg/dL (0.57-1.11); EST GLOMERULAR FILTRATION RATE > 60 ML/MIN (60-)
== END ==
LOC: CT 14:19
DX: R10.9 Unspecified abdominal pain (principal)
CPT/HCPCS: 36415; 74177; 82565; 84520; Q9967

== ENCOUNTER 2020-11-09 17:13 | Inpatient (IN) | payer MEDICARE ==
[~2020-11-09] VITALS: Ht 167.6 cm; Wt 79.4 kg
[~2020-11-09 17:13] MED LIST changes: -IOPAMIDOL 370 MG/ML 200 ML INFUS..BTL INJ ONE; -SODIUM CHLORIDE 0.9% 50ML 50 ML ONE
[2020-11-09 18:08] LABS: BASOPHILS # (AUTO) 0.1 (0.0-0.1); BASOPHILS % 0.6 % (0.0-1.0); EOSINOPHILS # (AUTO) 0.1 (0.0-0.4); EOSINOPHILS % 1.8 % (0.0-6.0); HEMATOCRIT 29.9 % (34.2-44.1); HEMOGLOBIN 10.2 g/dL (12.0-16.0); LYMPHOCYTES # (AUTO) 1.6 (1.0-3.2); LYMPHOCYTES % 20.2 % (18.0-39.1); MEAN CORPUSCULAR HEMOGLOBIN 31.3 pg (28-32); MEAN CORPUSCULAR HGB CONC 34.1 g/dL (31-35); MEAN CORPUSCULAR VOLUME 91.7 fL (81-99); MONOCYTES # (AUTO) 0.6 (0.2-0.8); MONOCYTES % 7.7 % (4.4-11.3); NEUTROPHILS # (AUTO) 5.4 (2.1-6.9); NEUTROPHILS % 69.4 % (38.7-80.0); PLATELET COUNT 186 x10e3/uL (140-360); RED BLOOD COUNT 3.26 x10e6/uL (3.6-5.1); RED CELL DISTRIBUTION WIDTH 13.4 % (11.7-14.4)
[2020-11-09 18:26] LABS: ALANINE AMINOTRANSFERASE 14 IU/L (0-55); ALBUMIN/GLOBULIN RATIO 1.1 (0.8-2.0); ALKALINE PHOSPHATASE 74 IU/L (40-150); AMYLASE 52 U/L (25-125); ANION GAP 13.8 mmol/L (8-16); BLOOD UREA NITROGEN 10 mg/dL (7-26); BUN/CREATININE RATIO 13 (6-25); CALCIUM 8.7 mg/dL (8.4-10.2); CARBON DIOXIDE 25 mmol/L (22-29); CHLORIDE 92 mmol/L (98-107); CREATINE KINASE 126 IU/L (29-168); CREATININE, SERUM 0.75 mg/dL (0.57-1.11); EST GLOMERULAR FILTRATION RATE > 60 ML/MIN (60-); GLUCOSE 87 mg/dL (74-118); LIPASE 76 U/L (8-78); POTASSIUM 4.8 mmol/L (3.5-5.1); SODIUM 126 mmol/L (136-145)
[2020-11-09 18:48] LABS: CLARITY,URINE SL CLOUDY (CLEAR); COLOR,URINE YELLOW (YELLOW); KETONES,URINE NEGATIVE (NEGATIVE); LEUKOCYTE ESTERASE ,URINE NEGATIVE (NEGATIVE); NITRITE,URINE NEGATIVE (NEGATIVE); PROTEIN,URINE DIPSTICK NEGATIVE (NEGATIVE); URINE UROBILINOGEN 0.2 mg/dL (0.2 - 1)
[2020-11-09 19:01] LABS: BACTERIA,URINE FEW /HPF; EPITHELIAL CELLS,URINE FEW /LPF; RBC,URINE 0-5 /HPF (0-5); WBC,URINE (MAN) 0-5 /HPF (0-5)
[2020-11-09 19:22] LABS: INR 2.03; PROTHROMBIN TIME 23.7 seconds (11.9-14.5)
[2020-11-09 19:23] LABS: PARTIAL THROMBOPLASTIN TIME 46.9 seconds (23.8-35.5)
[2020-11-09] MEDS ORDERED: SODIUM CHLORIDE 0.9% 1000ML 1,000 ML IV ONE (19:30)
[2020-11-09] MEDS ORDERED: MORPHINE SULFATE INJ 4 MG/ML INJ 1ML IV PRN (19:30)
[2020-11-09 20:00] VITALS: BP 119/75
[2020-11-09] MEDS ORDERED: BISACODYL 10 MG SUPP PR ONE (20:45)
[2020-11-09 21:00] VITALS: BP 155/74
[2020-11-09] MEDS ORDERED: CARBAMAZEPINE 100 MG TAB PO ONE (22:45)
[2020-11-09] MEDS: ACETAMINOPHEN 325 MG TAB PO PRN (22:58)
[2020-11-09] MEDS: POLYETHYLENE GLYCOL 3350 17 GM PACK PO SCH (22:58)
[2020-11-10] VITALS (8 sets, daily range): BP systolic 111–137; BP diastolic 56–64
[2020-11-10 05:49] LABS: BASOPHILS # (AUTO) 0.1 (0.0-0.1); BASOPHILS % 0.9 % (0.0-1.0); EOSINOPHILS # (AUTO) 0.1 (0.0-0.4); EOSINOPHILS % 2.4 % (0.0-6.0); HEMATOCRIT 28.5 % (34.2-44.1); HEMOGLOBIN 9.7 g/dL (12.0-16.0); LYMPHOCYTES # (AUTO) 1.6 (1.0-3.2); LYMPHOCYTES % 27.6 % (18.0-39.1); MEAN CORPUSCULAR VOLUME 91.1 fL (81-99); MONOCYTES # (AUTO) 0.6 (0.2-0.8); MONOCYTES % 10.9 % (4.4-11.3); NEUTROPHILS # (AUTO) 3.4 (2.1-6.9); NEUTROPHILS % 57.9 % (38.7-80.0); PLATELET COUNT 169 x10e3/uL (140-360); RED BLOOD COUNT 3.13 x10e6/uL (3.6-5.1); RED CELL DISTRIBUTION WIDTH 13.5 % (11.7-14.4)
[2020-11-10 06:22] LABS: ALANINE AMINOTRANSFERASE 11 IU/L (0-55); ALBUMIN 3.4 g/dL (3.5-5.0); ALBUMIN/GLOBULIN RATIO 1.1 (0.8-2.0); ALKALINE PHOSPHATASE 65 IU/L (40-150); ANION GAP 13.3 mmol/L (8-16); BLOOD UREA NITROGEN 9 mg/dL (7-26); BUN/CREATININE RATIO 13 (6-25); CALCIUM 8.3 mg/dL (8.4-10.2); CARBON DIOXIDE 24 mmol/L (22-29); CHLORIDE 96 mmol/L (98-107); CREATININE, SERUM 0.68 mg/dL (0.57-1.11); EST GLOMERULAR FILTRATION RATE > 60 ML/MIN (60-); GLUCOSE 83 mg/dL (74-118); POTASSIUM 4.3 mmol/L (3.5-5.1); SODIUM 129 mmol/L (136-145)
[2020-11-10] MEDS: POLYETHYLENE GLYCOL 3350 17 GM PACK PO SCH ×2 (08:02→17:00)
[2020-11-10] MEDS: PANTOPRAZOLE SOD 40 MG TABEC PO SCH ×3 (08:02→21:00)
[2020-11-10] MEDS: LEVOTHYROXINE SODIUM 75 MCG TAB PO SCH (08:02)
[2020-11-10] MEDS: BUSPIRONE HCL 10 MG TABLET PO SCH ×3 (08:02→21:00)
[2020-11-10] MEDS: METOPROLOL SUCCINATE 50 MG TAB XL PO SCH (08:05)
[2020-11-10] MEDS: MORPHINE SULFATE INJ 4 MG/ML INJ 1ML IV PRN ×3 (09:20→23:58)
[2020-11-10] MEDS: ONDANSETRON HCL INJ 2MG/ML 2ML 2 MG/ML VIAL IV PRN (09:20)
[2020-11-10] MEDS: ACETAMINOPHEN 325 MG TAB PO PRN (18:44)
[2020-11-10] MEDS: LISINOPRIL 2.5 MG TAB PO SCH (21:00)
[2020-11-10] MEDS: CARBAMAZEPINE 200 MG TAB PO SCH (21:00)
[2020-11-10] MEDS: SIMVASTATIN 20 MG TAB PO SCH (21:00)
[2020-11-11] VITALS (8 sets, daily range): BP systolic 117–141; BP diastolic 56–108
[2020-11-11] MEDS ORDERED: PANTOPRAZOLE 40 MG 10ML VIAL IV STA (02:25)
[2020-11-11] MEDS: PANTOPRAZOL 40MG/SOD CHL 0.9% 50 ML IV SCH (03:33)
[2020-11-11] MEDS: MORPHINE SULFATE INJ 4 MG/ML INJ 1ML IV PRN ×3 (06:10→19:35)
[2020-11-11 06:21] LABS: BASOPHILS # (AUTO) 0.1 (0.0-0.1); BASOPHILS % 0.8 % (0.0-1.0); EOSINOPHILS # (AUTO) 0.2 (0.0-0.4); EOSINOPHILS % 2.5 % (0.0-6.0); HEMATOCRIT 30.9 % (34.2-44.1); HEMOGLOBIN 10.5 g/dL (12.0-16.0); LYMPHOCYTES # (AUTO) 1.6 (1.0-3.2); LYMPHOCYTES % 26.5 % (18.0-39.1); MEAN CORPUSCULAR VOLUME 91.2 fL (81-99); MONOCYTES # (AUTO) 0.5 (0.2-0.8); NEUTROPHILS # (AUTO) 3.6 (2.1-6.9); NEUTROPHILS % 60.9 % (38.7-80.0); PLATELET COUNT 194 x10e3/uL (140-360); RED BLOOD COUNT 3.39 x10e6/uL (3.6-5.1); RED CELL DISTRIBUTION WIDTH 13.2 % (11.7-14.4)
[2020-11-11 06:48] LABS: ALANINE AMINOTRANSFERASE 11 IU/L (0-55); ALBUMIN 3.5 g/dL (3.5-5.0); ALBUMIN/GLOBULIN RATIO 1.1 (0.8-2.0); ALKALINE PHOSPHATASE 69 IU/L (40-150); BLOOD UREA NITROGEN 9 mg/dL (7-26); BUN/CREATININE RATIO 13 (6-25); CALCIUM 8.4 mg/dL (8.4-10.2); CARBON DIOXIDE 24 mmol/L (22-29); CHLORIDE 96 mmol/L (98-107); CREATININE, SERUM 0.69 mg/dL (0.57-1.11); EST GLOMERULAR FILTRATION RATE > 60 ML/MIN (60-); GLUCOSE 69 mg/dL (74-118); SODIUM 128 mmol/L (136-145)
[2020-11-11 06:53] LABS: INR 2.34; PROTHROMBIN TIME 26.4 seconds (11.9-14.5)
[2020-11-11 06:54] LABS: PARTIAL THROMBOPLASTIN TIME 51.3 seconds (23.8-35.5)
[2020-11-11 07:23] LABS: FERRITIN 101.35 ng/mL (4.63-204.00)
[2020-11-11] MEDS: BUSPIRONE HCL 10 MG TABLET PO SCH ×3 (09:46→22:04)
[2020-11-11] MEDS: LEVOTHYROXINE SODIUM 75 MCG TAB PO SCH (09:47)
[2020-11-11] MEDS: POLYETHYLENE GLYCOL 3350 17 GM PACK PO SCH ×2 (09:47→17:00)
[2020-11-11] MEDS: METOPROLOL SUCCINATE 50 MG TAB XL PO SCH (09:48)
[2020-11-11] MEDS: ONDANSETRON HCL INJ 2MG/ML 2ML 2 MG/ML VIAL IV PRN ×3 (12:34→23:35)
[2020-11-11] MEDS ORDERED: CYANOCOBALAMIN INJ 1,000 MCG/ML VIAL IM ONE (12:45)
[2020-11-11] MEDS: MUPIROCIN 2% OINT 22 GM TUBE TOP SCH (17:00)
[2020-11-11 17:09] LABS: OSMOLALITY,SERUM OSMOMETER 259 mOsmol/kg (280-301)
[2020-11-11] MEDS: LISINOPRIL 2.5 MG TAB PO SCH (21:00)
[2020-11-11] MEDS: CARBAMAZEPINE 200 MG TAB PO SCH (22:04)
[2020-11-11] MEDS: SIMVASTATIN 20 MG TAB PO SCH (22:04)
[2020-11-11] MEDS: ACETAMINOPHEN 325 MG TAB PO PRN (22:05)
[2020-11-12] VITALS (9 sets, daily range): BP systolic 111–134; BP diastolic 54–72
[2020-11-12] MEDS ORDERED: SODIUM CHLORIDE 0.9% 250ML 250 ML ONE ×2 (01:18→12:10)
[2020-11-12] MEDS: PANTOPRAZOL 40MG/SOD CHL 0.9% 50 ML IV SCH (03:10)
[2020-11-12] MEDS: MORPHINE SULFATE INJ 4 MG/ML INJ 1ML IV PRN ×4 (04:50→21:32)
[2020-11-12] MEDS: ONDANSETRON HCL INJ 2MG/ML 2ML 2 MG/ML VIAL IV PRN ×4 (04:50→20:30)
[2020-11-12] MEDS: SIMETHICONE 80 MG CHEW PO PRN ×2 (06:23→10:07)
[2020-11-12 06:28] LABS: BASOPHILS # (AUTO) 0.1 (0.0-0.1); BASOPHILS % 0.8 % (0.0-1.0); EOSINOPHILS # (AUTO) 0.2 (0.0-0.4); EOSINOPHILS % 2.8 % (0.0-6.0); HEMATOCRIT 32.1 % (34.2-44.1); LYMPHOCYTES # (AUTO) 1.8 (1.0-3.2); LYMPHOCYTES % 28.4 % (18.0-39.1); MEAN CORPUSCULAR HEMOGLOBIN 30.9 pg (28-32); MEAN CORPUSCULAR HGB CONC 34.3 g/dL (31-35); MEAN CORPUSCULAR VOLUME 90.2 fL (81-99); MONOCYTES # (AUTO) 0.6 (0.2-0.8); MONOCYTES % 9.4 % (4.4-11.3); NEUTROPHILS # (AUTO) 3.8 (2.1-6.9); NEUTROPHILS % 58.1 % (38.7-80.0); PLATELET COUNT 194 x10e3/uL (140-360); RED BLOOD COUNT 3.56 x10e6/uL (3.6-5.1)
[2020-11-12 06:53] LABS: INR 1.95
[2020-11-12 06:54] LABS: ALANINE AMINOTRANSFERASE 15 IU/L (0-55); ALBUMIN 3.7 g/dL (3.5-5.0); ALBUMIN/GLOBULIN RATIO 1.1 (0.8-2.0); ALKALINE PHOSPHATASE 70 IU/L (40-150); BLOOD UREA NITROGEN 6 mg/dL (7-26); BUN/CREATININE RATIO 8 (6-25); CALCIUM 8.8 mg/dL (8.4-10.2); CARBON DIOXIDE 25 mmol/L (22-29); CHLORIDE 92 mmol/L (98-107); CREATININE, SERUM 0.71 mg/dL (0.57-1.11); EST GLOMERULAR FILTRATION RATE > 60 ML/MIN (60-); GLUCOSE 84 mg/dL (74-118); SODIUM 126 mmol/L (136-145)
[2020-11-12] MEDS: CYANOCOBALAMIN INJ 1,000 MCG/ML VIAL IM SCH (08:17)
[2020-11-12] MEDS: MUPIROCIN 2% OINT 22 GM TUBE TOP SCH ×2 (08:18→15:59)
[2020-11-12] MEDS: METOPROLOL SUCCINATE 50 MG TAB XL PO SCH (08:18)
[2020-11-12] MEDS: POLYETHYLENE GLYCOL 3350 17 GM PACK PO SCH ×2 (08:18→15:59)
[2020-11-12] MEDS: LEVOTHYROXINE SODIUM 75 MCG TAB PO SCH (08:18)
[2020-11-12] MEDS: BUSPIRONE HCL 10 MG TABLET PO SCH ×3 (08:18→20:46)
[2020-11-12] MEDS: LISINOPRIL 2.5 MG TAB PO SCH (20:46)
[2020-11-12] MEDS: CARBAMAZEPINE 200 MG TAB PO SCH (20:46)
[2020-11-12] MEDS: SIMVASTATIN 20 MG TAB PO SCH (20:46)
[2020-11-13] VITALS (8 sets, daily range): BP systolic 105–138; BP diastolic 48–77
[2020-11-13 00:07] LABS: INR 1.53; PROTHROMBIN TIME 19.1 seconds (11.9-14.5)
[2020-11-13 00:08] LABS: PARTIAL THROMBOPLASTIN TIME 41.1 seconds (23.8-35.5)
[2020-11-13] MEDS ORDERED: PHYTONADIONE 10MG/ML 20 MG in SODIUM CHLORIDE 0.9% 100 ML IV ONE (01:30)
[2020-11-13] MEDS ORDERED: PHYTONADIONE 10 MG/ML AMP IV ONE (01:30)
[2020-11-13] MEDS ORDERED: SODIUM CHLORIDE 0.9% 250ML 250 ML ONE (01:54)
[2020-11-13] MEDS: MORPHINE SULFATE INJ 4 MG/ML INJ 1ML IV PRN ×3 (03:46→22:05)
[2020-11-13] MEDS: ONDANSETRON HCL INJ 2MG/ML 2ML 2 MG/ML VIAL IV PRN ×2 (03:46→22:05)
[2020-11-13] MEDS: PANTOPRAZOL 40MG/SOD CHL 0.9% 50 ML IV SCH (05:02)
[2020-11-13] MEDS: LEVOTHYROXINE SODIUM 75 MCG TAB PO SCH (07:30)
[2020-11-13 08:54] LABS: INR 1.24; PROTHROMBIN TIME 16.3 seconds (11.9-14.5)
[2020-11-13] MEDS: BUSPIRONE HCL 10 MG TABLET PO SCH ×3 (09:00→20:47)
[2020-11-13] MEDS: POLYETHYLENE GLYCOL 3350 17 GM PACK PO SCH ×2 (09:00→15:55)
[2020-11-13] MEDS: CYANOCOBALAMIN INJ 1,000 MCG/ML VIAL IM SCH (09:00)
[2020-11-13] MEDS: METOPROLOL SUCCINATE 50 MG TAB XL PO SCH (09:00)
[2020-11-13] MEDS: MUPIROCIN 2% OINT 22 GM TUBE TOP SCH ×2 (10:14→17:45)
[2020-11-13] MEDS ORDERED: PROPOFOL IV EMULSION 10 MG/ML 20 ML VIAL ONE (19:18)
[2020-11-13] MEDS ORDERED: LIDOCAINE HCL 2% LOCAL INJ 5 ML SDV VIAL INJ ONE (19:18)
[2020-11-13] MEDS: SIMVASTATIN 20 MG TAB PO SCH (20:47)
[2020-11-13] MEDS: LISINOPRIL 2.5 MG TAB PO SCH (20:47)
[2020-11-13] MEDS: CARBAMAZEPINE 200 MG TAB PO SCH (20:47)
[2020-11-14] VITALS (8 sets, daily range): BP systolic 111–141; BP diastolic 50–82
[2020-11-14] MEDS ORDERED: LIDOCAINE VISC 2% SOLN 15 ML UDC PO ONE (01:15)
[2020-11-14] MEDS ORDERED: DONNATAL/LIDOCAINE/MAALOX 30 ML SUSP PO SCH (01:15)
[2020-11-14] MEDS ORDERED: MAGNESIUM/ALUMINUM/SIMETHICONE 30 ML UDC PO ONE (01:15)
[2020-11-14] MEDS ORDERED: BELLADONNA ALK/PHENOBARBITAL 5 ML UDC PO ONE (01:15)
[2020-11-14] MEDS: PANTOPRAZOL 40MG/SOD CHL 0.9% 50 ML IV SCH (02:12)
[2020-11-14] MEDS: MORPHINE SULFATE INJ 4 MG/ML INJ 1ML IV PRN ×5 (04:38→22:35)
[2020-11-14] MEDS: ONDANSETRON HCL INJ 2MG/ML 2ML 2 MG/ML VIAL IV PRN ×5 (04:38→22:35)
[2020-11-14 06:52] LABS: INR 1.07; PROTHROMBIN TIME 14.5 seconds (11.9-14.5)
[2020-11-14] MEDS: LEVOTHYROXINE SODIUM 75 MCG TAB PO SCH (07:30)
[2020-11-14] MEDS: BUSPIRONE HCL 10 MG TABLET PO SCH ×3 (09:00→20:41)
[2020-11-14] MEDS: CYANOCOBALAMIN INJ 1,000 MCG/ML VIAL IM SCH (09:00)
[2020-11-14] MEDS: POLYETHYLENE GLYCOL 3350 17 GM PACK PO SCH ×3 (09:00→18:31)
[2020-11-14] MEDS: METOPROLOL SUCCINATE 50 MG TAB XL PO SCH (09:00)
[2020-11-14] MEDS: MUPIROCIN 2% OINT 22 GM TUBE TOP SCH ×2 (09:04→18:29)
[2020-11-14] MEDS: LISINOPRIL 2.5 MG TAB PO SCH (20:41)
[2020-11-14] MEDS: CARBAMAZEPINE 200 MG TAB PO SCH (20:41)
[2020-11-14] MEDS: SIMVASTATIN 20 MG TAB PO SCH (20:41)
[2020-11-15] VITALS (8 sets, daily range): BP systolic 103–123; BP diastolic 44–64
[2020-11-15] MEDS ORDERED: PANTOPRAZOL 40MG/SOD CHL 0.9% 50 ML IV STA (02:40)
[2020-11-15] MEDS: MORPHINE SULFATE INJ 4 MG/ML INJ 1ML IV PRN ×5 (02:59→21:00)
[2020-11-15] MEDS: ONDANSETRON HCL INJ 2MG/ML 2ML 2 MG/ML VIAL IV PRN ×5 (02:59→21:00)
[2020-11-15] MEDS ORDERED: METRONIDAZOLE 500MG/NS 100ML 100 ML IV ONE (03:00)
[2020-11-15] MEDS: METRONIDAZOLE 500MG/NS 100ML 100 ML IV SCH ×3 (06:20→16:22)
[2020-11-15] MEDS: PANTOPRAZOL 40MG/SOD CHL 0.9% 50 ML IV SCH ×3 (07:13→16:22)
[2020-11-15] MEDS: LEVOTHYROXINE SODIUM 75 MCG TAB PO SCH (08:51)
[2020-11-15] MEDS: POLYETHYLENE GLYCOL 3350 17 GM PACK PO SCH ×3 (08:52→16:28)
[2020-11-15] MEDS: BUSPIRONE HCL 10 MG TABLET PO SCH ×3 (08:52→21:00)
[2020-11-15] MEDS: CYANOCOBALAMIN INJ 1,000 MCG/ML VIAL IM SCH (08:52)
[2020-11-15] MEDS: MUPIROCIN 2% OINT 22 GM TUBE TOP SCH ×2 (08:52→16:22)
[2020-11-15] MEDS: METOPROLOL SUCCINATE 50 MG TAB XL PO SCH (12:23)
[2020-11-15] MEDS: CARBAMAZEPINE 200 MG TAB PO SCH (21:00)
[2020-11-15] MEDS: SIMVASTATIN 20 MG TAB PO SCH (21:00)
[2020-11-15] MEDS: LISINOPRIL 2.5 MG TAB PO SCH (21:00)
[2020-11-16] VITALS (9 sets, daily range): BP systolic 92–127; BP diastolic 48–66
[2020-11-16] MEDS: METRONIDAZOLE 500MG/NS 100ML 100 ML IV SCH ×4 (00:21→17:05)
[2020-11-16] MEDS: ONDANSETRON HCL INJ 2MG/ML 2ML 2 MG/ML VIAL IV PRN ×6 (01:12→22:03)
[2020-11-16] MEDS: MORPHINE SULFATE INJ 4 MG/ML INJ 1ML IV PRN (01:12)
[2020-11-16] MEDS: PANTOPRAZOL 40MG/SOD CHL 0.9% 50 ML IV SCH ×4 (01:12→18:13)
[2020-11-16] MEDS ORDERED: KETOROLAC TROMETHAMINE 30 MG/ML VIAL IV PRN (03:45)
[2020-11-16] MEDS: MORPHINE SULFATE INJ 2 MG/ML SYR IV PRN ×5 (05:24→22:03)
[2020-11-16] MEDS: BUSPIRONE HCL 10 MG TABLET PO SCH ×3 (09:23→21:15)
[2020-11-16] MEDS: MUPIROCIN 2% OINT 22 GM TUBE TOP SCH ×2 (09:23→17:45)
[2020-11-16] MEDS: LEVOTHYROXINE SODIUM 75 MCG TAB PO SCH (09:24)
[2020-11-16] MEDS: METOPROLOL SUCCINATE 50 MG TAB XL PO SCH (09:25)
[2020-11-16] MEDS: FLUTICASONE PROPIONATE NASAL SPRAY NS PRN (09:28)
[2020-11-16] MEDS: CYANOCOBALAMIN INJ 1,000 MCG/ML VIAL IM SCH (09:29)
[2020-11-16] MEDS: POLYETHYLENE GLYCOL 3350 17 GM PACK PO SCH (11:53)
[2020-11-16 15:17] LABS: ANION GAP 13.8 mmol/L (8-16); CALCIUM 8.8 mg/dL (8.4-10.2); CREATININE, SERUM 0.9 mg/dL (0.57-1.11); POTASSIUM 3.8 mmol/L (3.5-5.1)
[2020-11-16] MEDS: CARBAMAZEPINE 200 MG TAB PO SCH (21:14)
[2020-11-16] MEDS: LISINOPRIL 2.5 MG TAB PO SCH (21:15)
[2020-11-16] MEDS: SIMVASTATIN 20 MG TAB PO SCH (21:16)
[2020-11-17] VITALS (8 sets, daily range): BP systolic 114–149; BP diastolic 63–74
[2020-11-17] MEDS: METRONIDAZOLE 500MG/NS 100ML 100 ML IV SCH ×4 (00:30→18:11)
[2020-11-17] MEDS: PANTOPRAZOL 40MG/SOD CHL 0.9% 50 ML IV SCH ×5 (01:00→20:56)
[2020-11-17] MEDS ORDERED: KETOROLAC TROMETHAMINE 30 MG/ML VIAL IV SCH (02:16)
[2020-11-17] MEDS: MORPHINE SULFATE INJ 2 MG/ML SYR IV PRN ×5 (03:10→20:50)
[2020-11-17] MEDS: ONDANSETRON HCL INJ 2MG/ML 2ML 2 MG/ML VIAL IV PRN ×5 (03:10→20:50)
[2020-11-17] MEDS: LEVOTHYROXINE SODIUM 75 MCG TAB PO SCH (07:29)
[2020-11-17] MEDS: KETOROLAC TROMETHAMINE 30 MG/ML VIAL IV SCH ×3 (08:30→20:30)
[2020-11-17 08:49] LABS: ANION GAP 14.2 mmol/L (8-16); BLOOD UREA NITROGEN 14 mg/dL (7-26); BUN/CREATININE RATIO 17 (6-25); CALCIUM 8.6 mg/dL (8.4-10.2); CARBON DIOXIDE 26 mmol/L (22-29); CHLORIDE 100 mmol/L (98-107); CREATININE, SERUM 0.83 mg/dL (0.57-1.11); EST GLOMERULAR FILTRATION RATE > 60 ML/MIN (60-); GLUCOSE 90 mg/dL (74-118); POTASSIUM 4.2 mmol/L (3.5-5.1); SODIUM 136 mmol/L (136-145)
[2020-11-17] MEDS ORDERED: SODIUM CHLORIDE 1 GM TAB PO SCH (09:00)
[2020-11-17] MEDS: METOPROLOL SUCCINATE 50 MG TAB XL PO SCH (09:32)
[2020-11-17] MEDS: BUSPIRONE HCL 10 MG TABLET PO SCH ×3 (09:33→20:56)
[2020-11-17] MEDS: FLUTICASONE PROPIONATE NASAL SPRAY NS PRN (09:34)
[2020-11-17] MEDS: CYANOCOBALAMIN INJ 1,000 MCG/ML VIAL IM SCH (09:36)
[2020-11-17] MEDS: POLYETHYLENE GLYCOL 3350 17 GM PACK PO SCH ×2 (09:39→18:11)
[2020-11-17] MEDS: MUPIROCIN 2% OINT 22 GM TUBE TOP SCH ×2 (10:45→18:11)
[2020-11-17] MEDS: SIMETHICONE 80 MG CHEW PO PRN (18:38)
[2020-11-17] MEDS: SIMVASTATIN 20 MG TAB PO SCH (20:57)
[2020-11-17] MEDS: LISINOPRIL 2.5 MG TAB PO SCH (20:57)
[2020-11-17] MEDS: CARBAMAZEPINE 200 MG TAB PO SCH (20:57)
[2020-11-17] MEDS ORDERED: SODIUM CHLORIDE 0.9% 250ML 250 ML ONE (23:57)
[2020-11-18] VITALS (8 sets, daily range): BP systolic 121–142; BP diastolic 57–75
[2020-11-18] MEDS: METRONIDAZOLE 500MG/NS 100ML 100 ML IV SCH ×4 (00:04→17:36)
[2020-11-18] MEDS: MORPHINE SULFATE INJ 2 MG/ML SYR IV PRN ×5 (01:05→21:55)
[2020-11-18] MEDS: ONDANSETRON HCL INJ 2MG/ML 2ML 2 MG/ML VIAL IV PRN ×5 (01:05→21:55)
[2020-11-18] MEDS: KETOROLAC TROMETHAMINE 30 MG/ML VIAL IV SCH ×4 (02:13→20:30)
[2020-11-18] MEDS: PANTOPRAZOL 40MG/SOD CHL 0.9% 50 ML IV SCH ×4 (02:13→18:28)
[2020-11-18 06:16] LABS: BASOPHILS % 0.7 % (0.0-1.0); EOSINOPHILS # (AUTO) 0.4 (0.0-0.4); EOSINOPHILS % 6.9 % (0.0-6.0); HEMATOCRIT 29.6 % (34.2-44.1); HEMOGLOBIN 9.7 g/dL (12.0-16.0); LYMPHOCYTES # (AUTO) 1.6 (1.0-3.2); LYMPHOCYTES % 27.9 % (18.0-39.1); MEAN CORPUSCULAR HEMOGLOBIN 30.4 pg (28-32); MEAN CORPUSCULAR HGB CONC 32.8 g/dL (31-35); MEAN CORPUSCULAR VOLUME 92.8 fL (81-99); MONOCYTES # (AUTO) 0.5 (0.2-0.8); MONOCYTES % 8.5 % (4.4-11.3); NEUTROPHILS # (AUTO) 3.2 (2.1-6.9); NEUTROPHILS % 55.6 % (38.7-80.0); PLATELET COUNT 158 x10e3/uL (140-360); RED BLOOD COUNT 3.19 x10e6/uL (3.6-5.1); RED CELL DISTRIBUTION WIDTH 12.9 % (11.7-14.4)
[2020-11-18 06:44] LABS: ALANINE AMINOTRANSFERASE 15 IU/L (0-55); ALBUMIN 3.2 g/dL (3.5-5.0); ALKALINE PHOSPHATASE 117 IU/L (40-150); BLOOD UREA NITROGEN 13 mg/dL (7-26); BUN/CREATININE RATIO 19 (6-25); CALCIUM 8.3 mg/dL (8.4-10.2); CARBON DIOXIDE 26 mmol/L (22-29); CHLORIDE 101 mmol/L (98-107); EST GLOMERULAR FILTRATION RATE > 60 ML/MIN (60-); GLUCOSE 84 mg/dL (74-118); SODIUM 135 mmol/L (136-145)
[2020-11-18] MEDS: MUPIROCIN 2% OINT 22 GM TUBE TOP SCH (09:00)
[2020-11-18] MEDS: POLYETHYLENE GLYCOL 3350 17 GM PACK PO SCH ×2 (09:17→16:15)
[2020-11-18] MEDS: BUSPIRONE HCL 10 MG TABLET PO SCH ×3 (09:17→21:30)
[2020-11-18] MEDS: LEVOTHYROXINE SODIUM 75 MCG TAB PO SCH (09:17)
[2020-11-18] MEDS: CYANOCOBALAMIN INJ 1,000 MCG/ML VIAL IM SCH (09:17)
[2020-11-18] MEDS: METOPROLOL SUCCINATE 50 MG TAB XL PO SCH (09:19)
[2020-11-18] MEDS ORDERED: DIPHENHYDRAMINE HCL 25 MG CAP PO ONE (21:00)
[2020-11-18] MEDS: LISINOPRIL 2.5 MG TAB PO SCH (21:30)
[2020-11-18] MEDS: SIMVASTATIN 20 MG TAB PO SCH (21:30)
[2020-11-18] MEDS: CARBAMAZEPINE 200 MG TAB PO SCH (21:30)
[2020-11-19] VITALS (12 sets, daily range): BP systolic 98–143; BP diastolic 60–78
[2020-11-19] MEDS: METRONIDAZOLE 500MG/NS 100ML 100 ML IV SCH ×4 (00:40→17:18)
[2020-11-19] MEDS: PANTOPRAZOL 40MG/SOD CHL 0.9% 50 ML IV SCH ×4 (01:15→16:33)
[2020-11-19] MEDS: MORPHINE SULFATE INJ 2 MG/ML SYR IV PRN ×5 (02:10→20:12)
[2020-11-19] MEDS: ONDANSETRON HCL INJ 2MG/ML 2ML 2 MG/ML VIAL IV PRN ×5 (02:10→20:12)
[2020-11-19] MEDS: KETOROLAC TROMETHAMINE 30 MG/ML VIAL IV SCH ×4 (02:22→20:30)
[2020-11-19 06:03] LABS: BASOPHILS # (AUTO) 0.1 (0.0-0.1); BASOPHILS % 0.8 % (0.0-1.0); EOSINOPHILS # (AUTO) 0.3 (0.0-0.4); HEMATOCRIT 30.7 % (34.2-44.1); HEMOGLOBIN 9.9 g/dL (12.0-16.0); LYMPHOCYTES # (AUTO) 1.3 (1.0-3.2); LYMPHOCYTES % 20.5 % (18.0-39.1); MEAN CORPUSCULAR HEMOGLOBIN 30.6 pg (28-32); MEAN CORPUSCULAR HGB CONC 32.2 g/dL (31-35); MEAN CORPUSCULAR VOLUME 94.8 fL (81-99); MONOCYTES # (AUTO) 0.6 (0.2-0.8); MONOCYTES % 9.6 % (4.4-11.3); NEUTROPHILS % 64.8 % (38.7-80.0); PLATELET COUNT 165 x10e3/uL (140-360); RED BLOOD COUNT 3.24 x10e6/uL (3.6-5.1)
[2020-11-19 06:34] LABS: BLOOD UREA NITROGEN 9 mg/dL (7-26); BUN/CREATININE RATIO 13 (6-25); CALCIUM 8.1 mg/dL (8.4-10.2); CARBON DIOXIDE 25 mmol/L (22-29); CHLORIDE 103 mmol/L (98-107); CREATININE, SERUM 0.67 mg/dL (0.57-1.11); EST GLOMERULAR FILTRATION RATE > 60 ML/MIN (60-); GLUCOSE 91 mg/dL (74-118); SODIUM 138 mmol/L (136-145)
[2020-11-19 06:35] LABS: INR 1.1; PROTHROMBIN TIME 14.8 seconds (11.9-14.5)
[2020-11-19 06:36] LABS: PARTIAL THROMBOPLASTIN TIME 34.5 seconds (23.8-35.5)
[2020-11-19] MEDS: LEVOTHYROXINE SODIUM 75 MCG TAB PO SCH (07:30)
[2020-11-19] MEDS: POLYETHYLENE GLYCOL 3350 17 GM PACK PO SCH ×2 (08:06→17:00)
[2020-11-19] MEDS: METOPROLOL SUCCINATE 50 MG TAB XL PO SCH (08:06)
[2020-11-19] MEDS: BUSPIRONE HCL 10 MG TABLET PO SCH ×3 (08:06→20:30)
[2020-11-19] MEDS: CYANOCOBALAMIN INJ 1,000 MCG/ML VIAL IM SCH (09:55)
[2020-11-19] MEDS: SIMETHICONE 80 MG CHEW PO PRN (18:42)
[2020-11-19] MEDS ORDERED: LIDOCAINE 4% PATCH TP SCH (19:15)
[2020-11-19] MEDS: LIDOCAINE 4% PATCH TP SCH (20:00)
[2020-11-19] MEDS: CARBAMAZEPINE 200 MG TAB PO SCH (20:30)
[2020-11-19] MEDS: LISINOPRIL 2.5 MG TAB PO SCH (20:30)
[2020-11-19] MEDS: SIMVASTATIN 20 MG TAB PO SCH (20:30)
[2020-11-20] VITALS (8 sets, daily range): BP systolic 115–160; BP diastolic 57–74
[2020-11-20] MEDS: METRONIDAZOLE 500MG/NS 100ML 100 ML IV SCH ×4 (00:27→17:46)
[2020-11-20] MEDS: ONDANSETRON HCL INJ 2MG/ML 2ML 2 MG/ML VIAL IV PRN ×6 (00:28→22:40)
[2020-11-20] MEDS: MORPHINE SULFATE INJ 2 MG/ML SYR IV PRN ×6 (00:28→22:40)
[2020-11-20] MEDS: PANTOPRAZOL 40MG/SOD CHL 0.9% 50 ML IV SCH (00:30)
[2020-11-20] MEDS: KETOROLAC TROMETHAMINE 30 MG/ML VIAL IV SCH (02:30)
[2020-11-20 05:38] LABS: BASOPHILS % 0.5 % (0.0-1.0); EOSINOPHILS # (AUTO) 0.2 (0.0-0.4); EOSINOPHILS % 3.7 % (0.0-6.0); HEMATOCRIT 30.6 % (34.2-44.1); HEMOGLOBIN 9.9 g/dL (12.0-16.0); LYMPHOCYTES # (AUTO) 1.3 (1.0-3.2); LYMPHOCYTES % 23.1 % (18.0-39.1); MEAN CORPUSCULAR HEMOGLOBIN 30.9 pg (28-32); MEAN CORPUSCULAR HGB CONC 32.4 g/dL (31-35); MEAN CORPUSCULAR VOLUME 95.6 fL (81-99); MONOCYTES # (AUTO) 0.5 (0.2-0.8); MONOCYTES % 8.7 % (4.4-11.3); NEUTROPHILS # (AUTO) 3.7 (2.1-6.9); NEUTROPHILS % 63.7 % (38.7-80.0); PLATELET COUNT 150 x10e3/uL (140-360)
[2020-11-20 06:04] LABS: ALANINE AMINOTRANSFERASE 8 IU/L (0-55); ALBUMIN 3.3 g/dL (3.5-5.0); ALKALINE PHOSPHATASE 69 IU/L (40-150); BLOOD UREA NITROGEN 7 mg/dL (7-26); BUN/CREATININE RATIO 10 (6-25); CALCIUM 8.3 mg/dL (8.4-10.2); CARBON DIOXIDE 27 mmol/L (22-29); CHLORIDE 103 mmol/L (98-107); CREATININE, SERUM 0.67 mg/dL (0.57-1.11); EST GLOMERULAR FILTRATION RATE > 60 ML/MIN (60-); GLUCOSE 96 mg/dL (74-118); SODIUM 138 mmol/L (136-145)
[2020-11-20] MEDS: LEVOTHYROXINE SODIUM 75 MCG TAB PO SCH (09:06)
[2020-11-20] MEDS: CYANOCOBALAMIN INJ 1,000 MCG/ML VIAL IM SCH (09:11)
[2020-11-20] MEDS: DULOXETINE HCL 30 MG DELAYED RELEASE PO SCH (09:12)
[2020-11-20] MEDS: BUSPIRONE HCL 10 MG TABLET PO SCH ×3 (09:12→21:00)
[2020-11-20] MEDS: LACTOBACILLUS ACIDOPHILUS CAPSULE PO SCH ×3 (09:13→21:00)
[2020-11-20] MEDS: POLYETHYLENE GLYCOL 3350 17 GM PACK PO SCH ×2 (09:14→17:00)
[2020-11-20] MEDS: METOPROLOL SUCCINATE 50 MG TAB XL PO SCH (09:14)
[2020-11-20] MEDS: LISINOPRIL 2.5 MG TAB PO SCH (21:00)
[2020-11-20] MEDS: SIMVASTATIN 20 MG TAB PO SCH (21:00)
[2020-11-20] MEDS: METOPROLOL TARTRATE 25 MG TAB PO SCH (21:00)
[2020-11-20] MEDS: CARBAMAZEPINE 200 MG TAB PO SCH (21:00)
[2020-11-20] MEDS: LIDOCAINE 4% PATCH TP SCH (21:00)
[2020-11-21] VITALS (7 sets, daily range): BP systolic 114–149; BP diastolic 71–79
[2020-11-21] MEDS: METRONIDAZOLE 500MG/NS 100ML 100 ML IV SCH (00:23)
[2020-11-21] MEDS: MORPHINE SULFATE INJ 2 MG/ML SYR IV PRN ×3 (03:05→11:32)
[2020-11-21] MEDS: ONDANSETRON HCL INJ 2MG/ML 2ML 2 MG/ML VIAL IV PRN ×4 (03:05→22:00)
[2020-11-21] MEDS ORDERED: ONDANSETRON HCL INJ 2MG/ML 2ML 2 MG/ML VIAL IV STA (04:14)
[2020-11-21] MEDS: LEVOTHYROXINE SODIUM 75 MCG TAB PO SCH (07:30)
[2020-11-21] MEDS: POLYETHYLENE GLYCOL 3350 17 GM PACK PO SCH (08:10)
[2020-11-21] MEDS: BUSPIRONE HCL 10 MG TABLET PO SCH (08:10)
[2020-11-21] MEDS: LACTOBACILLUS ACIDOPHILUS CAPSULE PO SCH (08:10)
[2020-11-21] MEDS: DULOXETINE HCL 30 MG DELAYED RELEASE PO SCH (09:00)
[2020-11-21] MEDS: METOPROLOL SUCCINATE 50 MG TAB XL PO SCH (09:00)
[2020-11-21] MEDS: CYANOCOBALAMIN INJ 1,000 MCG/ML VIAL IM SCH (09:37)
[2020-11-21] MEDS ORDERED: FENTANYL CITRATE/PF 100MCG/2 ML INJ ONE ×2 (13:26→17:05)
[2020-11-21] MEDS ORDERED: SUGAMMADEX SODIUM 200 MG/2 ML VIAL IV ONE (15:54)
[2020-11-21] MEDS ORDERED: ACETAMINOPHEN 1000 MG/100 ML IV PRN (17:00)
[2020-11-21] MEDS ORDERED: ONDANSETRON HCL INJ 2MG/ML 2ML 2 MG/ML VIAL ONE ×2 (17:13→19:17)
[2020-11-21] MEDS ORDERED: HYDROMORPHONE 1MG/1ML INJ ONE (17:30)
[2020-11-21] MEDS: PANTOPRAZOLE 40 MG 10ML VIAL IV SCH (19:06)
[2020-11-21] MEDS ORDERED: PROPOFOL IV EMULSION 10 MG/ML 20 ML VIAL ONE (19:17)
[2020-11-21] MEDS ORDERED: ROCURONIUM BROMIDE 10 MG/ML 5ML VIAL IV ONE (19:17)
[2020-11-21] MEDS ORDERED: SEVOFLURANE INHAL SOLN 250 ML PEN BTL ONE (19:17)
[2020-11-21] MEDS ORDERED: DEXAMETHASONE SOD PHOS INJ 4 MG/ML VIAL ONE (19:17)
[2020-11-21] MEDS ORDERED: LIDOCAINE HCL 2% LOCAL INJ 5 ML SDV VIAL INJ ONE (19:17)
[2020-11-21] MEDS ORDERED: ESMOLOL HCL 100MG/10ML 10 MG/ML VIAL ONE (19:17)
[2020-11-21] MEDS ORDERED: POVIDONE IODINE 0.05% 0.05 % ML PO ONE (19:17)
[2020-11-21] MEDS ORDERED: PHENYLEPHRINE HCL 1% 10 MG/ML VIAL ONE (19:17)
[2020-11-21] MEDS ORDERED: METOPROLOL TARTRATE INJ 1 MG/ML VIAL ONE (19:17)
[2020-11-21] MEDS ORDERED: METOPROLOL TARTRATE INJ 1 MG/ML VIAL IV PRN (20:15)
[2020-11-21] MEDS: LIDOCAINE 4% PATCH TP SCH (20:42)
[2020-11-21] MEDS: LISINOPRIL 2.5 MG TAB PO SCH (20:50)
[2020-11-21] MEDS: METOPROLOL TARTRATE 25 MG TAB PO SCH (20:50)
[2020-11-21] MEDS: DEXTROSE 5%/0.45% SOD CHL 1,000 ML IV SCH (22:00)
[2020-11-21] MEDS: HYDROMORPHONE 1MG/1ML INJ IV PRN (22:00)
[2020-11-22] VITALS (10 sets, daily range): BP systolic 112–138; BP diastolic 50–68
[2020-11-22] MEDS: ONDANSETRON HCL INJ 2MG/ML 2ML 2 MG/ML VIAL IV PRN ×4 (02:00→22:30)
[2020-11-22] MEDS: HYDROMORPHONE 1MG/1ML INJ IV PRN ×4 (02:00→22:35)
[2020-11-22 06:21] LABS: BASOPHILS % 0.2 % (0.0-1.0); HEMATOCRIT 30.6 % (34.2-44.1); HEMOGLOBIN 10.3 g/dL (12.0-16.0); LYMPHOCYTES # (AUTO) 0.8 (1.0-3.2); LYMPHOCYTES % 6.3 % (18.0-39.1); MEAN CORPUSCULAR HGB CONC 33.7 g/dL (31-35); MEAN CORPUSCULAR VOLUME 92.2 fL (81-99); MONOCYTES # (AUTO) 1.2 (0.2-0.8); MONOCYTES % 9.3 % (4.4-11.3); NEUTROPHILS # (AUTO) 10.3 (2.1-6.9); NEUTROPHILS % 83.6 % (38.7-80.0); PLATELET COUNT 202 x10e3/uL (140-360); RED BLOOD COUNT 3.32 x10e6/uL (3.6-5.1)
[2020-11-22 06:42] LABS: ANION GAP 14.8 mmol/L (8-16); BLOOD UREA NITROGEN 7 mg/dL (7-26); BUN/CREATININE RATIO 10 (6-25); CALCIUM 7.9 mg/dL (8.4-10.2); CARBON DIOXIDE 22 mmol/L (22-29); CHLORIDE 102 mmol/L (98-107); CREATININE, SERUM 0.69 mg/dL (0.57-1.11); EST GLOMERULAR FILTRATION RATE > 60 ML/MIN (60-); GLUCOSE 196 mg/dL (74-118); POTASSIUM 3.8 mmol/L (3.5-5.1); SODIUM 135 mmol/L (136-145)
[2020-11-22] MEDS: DEXTROSE 5%/0.45% SOD CHL 1,000 ML IV SCH ×3 (07:58→23:27)
[2020-11-22] MEDS: CYANOCOBALAMIN INJ 1,000 MCG/ML VIAL IM SCH (08:49)
[2020-11-22] MEDS: METOPROLOL SUCCINATE 50 MG TAB XL PO SCH (08:49)
[2020-11-22] MEDS: DULOXETINE HCL 30 MG DELAYED RELEASE PO SCH (08:49)
[2020-11-22 13:10] LABS: ALANINE AMINOTRANSFERASE 11 IU/L (0-55); ALBUMIN/GLOBULIN RATIO 0.9 (0.8-2.0); ALKALINE PHOSPHATASE 63 IU/L (40-150); ANION GAP 12.8 mmol/L (8-16); BLOOD UREA NITROGEN 8 mg/dL (7-26); BUN/CREATININE RATIO 13 (6-25); CARBON DIOXIDE 24 mmol/L (22-29); CHLORIDE 104 mmol/L (98-107); CREATININE, SERUM 0.64 mg/dL (0.57-1.11); EST GLOMERULAR FILTRATION RATE > 60 ML/MIN (60-); GLUCOSE 135 mg/dL (74-118); POTASSIUM 3.8 mmol/L (3.5-5.1); SODIUM 137 mmol/L (136-145)
[2020-11-22] MEDS: PROMETHAZINE 25MG/ NS 50ML (IV) IV PRN (16:15)
[2020-11-22] MEDS: PANTOPRAZOLE 40 MG 10ML VIAL IV SCH (17:10)
[2020-11-22] MEDS: LISINOPRIL 2.5 MG TAB PO SCH (20:27)
[2020-11-22] MEDS: LIDOCAINE 4% PATCH TP SCH (20:45)
[2020-11-22] MEDS: METOPROLOL TARTRATE 25 MG TAB PO SCH (20:45)
[2020-11-23] VITALS (9 sets, daily range): BP systolic 119–145; BP diastolic 60–80
[2020-11-23] MEDS: ONDANSETRON HCL INJ 2MG/ML 2ML 2 MG/ML VIAL IV PRN ×3 (03:10→21:15)
[2020-11-23] MEDS: HYDROMORPHONE 1MG/1ML INJ IV PRN ×4 (03:10→21:15)
[2020-11-23 06:33] LABS: BASOPHILS % 0.4 % (0.0-1.0); EOSINOPHILS # (AUTO) 0.1 (0.0-0.4); EOSINOPHILS % 0.7 % (0.0-6.0); HEMATOCRIT 27.5 % (34.2-44.1); HEMOGLOBIN 8.9 g/dL (12.0-16.0); LYMPHOCYTES # (AUTO) 1.5 (1.0-3.2); MEAN CORPUSCULAR HEMOGLOBIN 30.3 pg (28-32); MEAN CORPUSCULAR HGB CONC 32.4 g/dL (31-35); MEAN CORPUSCULAR VOLUME 93.5 fL (81-99); MONOCYTES % 8.9 % (4.4-11.3); NEUTROPHILS # (AUTO) 8.1 (2.1-6.9); NEUTROPHILS % 75.6 % (38.7-80.0); PLATELET COUNT 234 x10e3/uL (140-360); RED BLOOD COUNT 2.94 x10e6/uL (3.6-5.1); RED CELL DISTRIBUTION WIDTH 13.2 % (11.7-14.4)
[2020-11-23 06:55] LABS: ANION GAP 11.7 mmol/L (8-16); BLOOD UREA NITROGEN 7 mg/dL (7-26); BUN/CREATININE RATIO 11 (6-25); CALCIUM 8.2 mg/dL (8.4-10.2); CARBON DIOXIDE 25 mmol/L (22-29); CHLORIDE 104 mmol/L (98-107); CREATININE, SERUM 0.63 mg/dL (0.57-1.11); EST GLOMERULAR FILTRATION RATE > 60 ML/MIN (60-); GLUCOSE 119 mg/dL (74-118); POTASSIUM 3.7 mmol/L (3.5-5.1); SODIUM 137 mmol/L (136-145)
[2020-11-23] MEDS: DULOXETINE HCL 30 MG DELAYED RELEASE PO SCH (07:21)
[2020-11-23] MEDS: METOPROLOL SUCCINATE 50 MG TAB XL PO SCH (07:21)
[2020-11-23] MEDS: CYANOCOBALAMIN INJ 1,000 MCG/ML VIAL IM SCH (07:38)
[2020-11-23] MEDS: DEXTROSE 5%/0.45% SOD CHL 1,000 ML IV SCH ×2 (11:59→22:30)
[2020-11-23] MEDS: PANTOPRAZOLE 40 MG 10ML VIAL IV SCH (17:05)
[2020-11-23] MEDS: LISINOPRIL 2.5 MG TAB PO SCH (21:15)
[2020-11-23] MEDS: METOPROLOL TARTRATE 25 MG TAB PO SCH (21:15)
[2020-11-23] MEDS: LIDOCAINE 4% PATCH TP SCH (21:15)
[2020-11-24] VITALS (8 sets, daily range): BP systolic 119–136; BP diastolic 51–80
[2020-11-24] MEDS: PROMETHAZINE 25MG/ NS 50ML (IV) IV PRN (00:52)
[2020-11-24] MEDS: ONDANSETRON HCL INJ 2MG/ML 2ML 2 MG/ML VIAL IV PRN ×6 (02:50→23:54)
[2020-11-24] MEDS: HYDROMORPHONE 1MG/1ML INJ IV PRN ×6 (02:50→23:54)
[2020-11-24 06:52] LABS: BASOPHILS # (AUTO) 0.1 (0.0-0.1); BASOPHILS % 0.6 % (0.0-1.0); EOSINOPHILS # (AUTO) 0.4 (0.0-0.4); HEMOGLOBIN 8.6 g/dL (12.0-16.0); LYMPHOCYTES # (AUTO) 1.3 (1.0-3.2); LYMPHOCYTES % 15.4 % (18.0-39.1); MEAN CORPUSCULAR HEMOGLOBIN 30.4 pg (28-32); MEAN CORPUSCULAR HGB CONC 31.9 g/dL (31-35); MEAN CORPUSCULAR VOLUME 95.4 fL (81-99); MONOCYTES # (AUTO) 0.7 (0.2-0.8); MONOCYTES % 8.2 % (4.4-11.3); NEUTROPHILS # (AUTO) 6.2 (2.1-6.9); NEUTROPHILS % 71.5 % (38.7-80.0); PLATELET COUNT 214 x10e3/uL (140-360); RED BLOOD COUNT 2.83 x10e6/uL (3.6-5.1); RED CELL DISTRIBUTION WIDTH 13.2 % (11.7-14.4)
[2020-11-24 07:10] LABS: ANION GAP 11.6 mmol/L (8-16); BLOOD UREA NITROGEN 5 mg/dL (7-26); BUN/CREATININE RATIO 8 (6-25); CALCIUM 8.4 mg/dL (8.4-10.2); CARBON DIOXIDE 28 mmol/L (22-29); CHLORIDE 104 mmol/L (98-107); CREATININE, SERUM 0.65 mg/dL (0.57-1.11); EST GLOMERULAR FILTRATION RATE > 60 ML/MIN (60-); GLUCOSE 131 mg/dL (74-118); POTASSIUM 3.6 mmol/L (3.5-5.1); SODIUM 140 mmol/L (136-145)
[2020-11-24] MEDS: DEXTROSE 5%/0.45% SOD CHL 1,000 ML IV SCH ×2 (09:04→19:34)
[2020-11-24] MEDS: DULOXETINE HCL 30 MG DELAYED RELEASE PO SCH (09:04)
[2020-11-24] MEDS: CYANOCOBALAMIN INJ 1,000 MCG/ML VIAL IM SCH (09:04)
[2020-11-24] MEDS: METOPROLOL SUCCINATE 50 MG TAB XL PO SCH (09:04)
[2020-11-24] MEDS: PANTOPRAZOLE 40 MG 10ML VIAL IV SCH (16:38)
[2020-11-24] MEDS: LISINOPRIL 2.5 MG TAB PO SCH (21:17)
[2020-11-24] MEDS: METOPROLOL TARTRATE 25 MG TAB PO SCH (21:17)
[2020-11-24] MEDS: LIDOCAINE 4% PATCH TP SCH (21:19)
[2020-11-25] VITALS (8 sets, daily range): BP systolic 115–145; BP diastolic 53–98
[2020-11-25] MEDS: HYDROMORPHONE 1MG/1ML INJ IV PRN ×2 (04:00→08:02)
[2020-11-25] MEDS: ONDANSETRON HCL INJ 2MG/ML 2ML 2 MG/ML VIAL IV PRN ×4 (04:01→21:20)
[2020-11-25] MEDS: DEXTROSE 5%/0.45% SOD CHL 1,000 ML IV SCH ×2 (07:02→21:11)
[2020-11-25] MEDS: DULOXETINE HCL 30 MG DELAYED RELEASE PO SCH (08:01)
[2020-11-25] MEDS: CYANOCOBALAMIN INJ 1,000 MCG/ML VIAL IM SCH (08:01)
[2020-11-25] MEDS: METOPROLOL SUCCINATE 50 MG TAB XL PO SCH (08:02)
[2020-11-25] MEDS: PROMETHAZINE 25MG/ NS 50ML (IV) IV PRN (10:15)
[2020-11-25] MEDS ORDERED: HYDROMORPHONE 1MG/1ML INJ IV PRN (11:15)
[2020-11-25] MEDS: HYDROCODONE/APAP 5MG-325MG TAB PO PRN ×2 (12:30→18:22)
[2020-11-25] MEDS: PANTOPRAZOLE 40 MG 10ML VIAL IV SCH (18:21)
[2020-11-25] MEDS: WARFARIN SOD 5 MG TAB PO SCH (18:22)
[2020-11-25] MEDS ORDERED: HYDROCODONE/APAP 7.5MG-325MG 1 EA TAB PO PRN (19:45)
[2020-11-25] MEDS ORDERED: KETOROLAC TROMETHAMINE 30 MG/ML VIAL IM PRN (19:45)
[2020-11-25] MEDS: MORPHINE SULFATE INJ 4 MG/ML INJ 1ML IV PRN (21:19)
[2020-11-25] MEDS: LISINOPRIL 2.5 MG TAB PO SCH (21:23)
[2020-11-25] MEDS: LIDOCAINE 4% PATCH TP SCH (21:23)
[2020-11-25] MEDS: METOPROLOL TARTRATE 25 MG TAB PO SCH (21:23)
[2020-11-25] MEDS: CARBAMAZEPINE 200 MG TAB PO SCH (21:23)
[2020-11-26] VITALS (8 sets, daily range): BP systolic 116–143; BP diastolic 43–76
[2020-11-26] MEDS: ONDANSETRON HCL INJ 2MG/ML 2ML 2 MG/ML VIAL IV PRN ×6 (00:56→21:38)
[2020-11-26] MEDS: MORPHINE SULFATE INJ 4 MG/ML INJ 1ML IV PRN ×6 (00:56→21:44)
[2020-11-26 06:12] LABS: INR 1.04; PROTHROMBIN TIME 14.2 seconds (11.9-14.5)
[2020-11-26] MEDS: DULOXETINE HCL 30 MG DELAYED RELEASE PO SCH (08:19)
[2020-11-26] MEDS: METOPROLOL SUCCINATE 50 MG TAB XL PO SCH (08:19)
[2020-11-26] MEDS: CYANOCOBALAMIN INJ 1,000 MCG/ML VIAL IM SCH (08:19)
[2020-11-26] MEDS: PANTOPRAZOLE 40 MG 10ML VIAL IV SCH (16:14)
[2020-11-26] MEDS: WARFARIN SOD 5 MG TAB PO SCH (16:15)
[2020-11-26] MEDS: DEXTROSE 5%/0.45% SOD CHL 1,000 ML IV SCH (16:59)
[2020-11-26] MEDS: LIDOCAINE 4% PATCH TP SCH (21:06)
[2020-11-26] MEDS: METOPROLOL TARTRATE 25 MG TAB PO SCH (21:07)
[2020-11-26] MEDS: LISINOPRIL 2.5 MG TAB PO SCH (21:07)
[2020-11-26] MEDS: CARBAMAZEPINE 200 MG TAB PO SCH (21:07)
[2020-11-27] VITALS (7 sets, daily range): BP systolic 109–147; BP diastolic 63–80
[2020-11-27] MEDS: ONDANSETRON HCL INJ 2MG/ML 2ML 2 MG/ML VIAL IV PRN ×4 (03:18→15:17)
[2020-11-27] MEDS: MORPHINE SULFATE INJ 4 MG/ML INJ 1ML IV PRN ×4 (03:26→15:16)
[2020-11-27 05:38] LABS: INR 1.47; PROTHROMBIN TIME 18.5 seconds (11.9-14.5)
[2020-11-27] MEDS: CYANOCOBALAMIN INJ 1,000 MCG/ML VIAL IM SCH (08:17)
[2020-11-27] MEDS: METOPROLOL SUCCINATE 50 MG TAB XL PO SCH (08:17)
[2020-11-27] MEDS: DULOXETINE HCL 30 MG DELAYED RELEASE PO SCH (08:17)
[2020-11-27] MEDS: DEXTROSE 5%/0.45% SOD CHL 1,000 ML IV SCH (13:11)
== END 2020-11-27 17:35 | DRG 336 ==
LOC: ER 17:37 → ERHOLD 19:20 → MED/SURG3 20:00 → OBSVTOIN 11-11 08:45 → MED/SURG 11-21 18:28
PROC: 0DB68ZX Excision of Stomach, Via Natural or Artificial Opening Endoscopic, Diagnostic (ICD-10-PCS; 2020-11-13)
PROC: 0DB78ZX Excision of Stomach, Pylorus, Via Natural or Artificial Opening Endoscopic, Diagnostic (ICD-10-PCS; 2020-11-13)
PROC: 0D748ZZ Dilation of Esophagogastric Junction, Via Natural or Artificial Opening Endoscopic (ICD-10-PCS; principal; 2020-11-13 07:30)
PROC: 0DNU0ZZ Release Omentum, Open Approach (ICD-10-PCS; 2020-11-21)
PROC: 0FT40ZZ Resection of Gallbladder, Open Approach (ICD-10-PCS; 2020-11-21)
PROC: 0DNF0ZZ Release Right Large Intestine, Open Approach (ICD-10-PCS; 2020-11-21)
PROC: 0DN80ZZ Release Small Intestine, Open Approach (ICD-10-PCS; 2020-11-21)
DX: K22.2 Esophageal obstruction (principal); E87.1 Hypo-osmolality and hyponatremia; I48.20 Chronic atrial fibrillation, unspecified; K81.1 Chronic cholecystitis; K83.8 Other specified diseases of biliary tract; I10 Essential (primary) hypertension; F41.9 Anxiety disorder, unspecified; E78.5 Hyperlipidemia, unspecified; G62.9 Polyneuropathy, unspecified; K31.7 Polyp of stomach and duodenum; K29.70 Gastritis, unspecified, without bleeding; K66.0 Peritoneal adhesions (postprocedural) (postinfection); K82.8 Other specified diseases of gallbladder; D63.8 Anemia in other chronic diseases classified elsewhere; Z88.1 Allergy status to other antibiotic agents; Z88.0 Allergy status to penicillin; Z88.2 Allergy status to sulfonamides; Z88.8 Allergy status to other drugs, medicaments and biological substances; M48.061 Spinal stenosis, lumbar region without neurogenic claudication; J38.01 Paralysis of vocal cords and larynx, unilateral; K21.9 Gastro-esophageal reflux disease without esophagitis; K22.711 Barrett's esophagus with high grade dysplasia; Z20.822 Contact with and (suspected) exposure to COVID-19
CPT/HCPCS: 36415; 43239; 43450; 72146; 72148; 74181; 74470; 78227; 80048; 80053; 81001; 82150; 82550; 82553; 82607; 82728; 82746; 82948; 83540; 83690; 83930; 83935; 84443; 84466; 84484; 85025; 85045; 85610; 85730; 86900; 88304; 88305; 88312; 93005; 99251; 99284; A9537; G0378; J1100; J1170; J1885; J2001; J2270; J2370; J2405; J2550; J3010; J3420; J3430; J7050; P9017; U0002

== ENCOUNTER → 2021-11-17 | Day surgery (SDC) | payer MEDICARE ==
[~2021-11-17] MED LIST changes: +CARAFATE1 GM PO; +CEFDINIR300 MG PO; +LEVOTHYROXINE150 MCG PO; +LIDOCAINE HCL 2% LOCAL INJ 5 ML SDV VIAL INJ ONE; +METOCLOPRAMIDE HCL 10 MG/2ML VIAL ONE; +PHAZYME180 MG PO; +PROPOFOL IV EMULSION 10 MG/ML 20 ML VIAL ONE; +REGLAN10 MG PO; +WARFARIN SODIU2.5 MG PO
[2021-11-17 11:35] LABS: INR 1.04; PROTHROMBIN TIME 14.5 seconds (11.9-14.5)
[2021-11-17 12:50] VITALS: BP 124/71
== END | disposition home or self-care (01) ==
LOC: OR 10:27
PROVIDERS: ATTEND Internal Medicine Gastroenterology
DX: K22.2 Esophageal obstruction (principal); K31.7 Polyp of stomach and duodenum; K22.10 Ulcer of esophagus without bleeding; Z98.84 Bariatric surgery status; E03.9 Hypothyroidism, unspecified; N39.0 Urinary tract infection, site not specified; I48.91 Unspecified atrial fibrillation; I25.10 Atherosclerotic heart disease of native coronary artery without angina pectoris; I10 Essential (primary) hypertension; E78.5 Hyperlipidemia, unspecified; D64.9 Anemia, unspecified; Z01.812 Encounter for preprocedural laboratory examination; Z20.822 Contact with and (suspected) exposure to COVID-19; Z79.01 Long term (current) use of anticoagulants; Z79.899 Other long term (current) drug therapy
CPT/HCPCS: 36415; 43239; 43450; 85610; 85730; 88305; 88312; C9113; U0002; J2001; J2765

== ENCOUNTER → 2021-11-27 | Day surgery (SDC) | payer MEDICARE ==
[2021-11-26 14:07] LABS: BASOPHILS % 0.3 % (0.0-1.0); EOSINOPHILS # (AUTO) 0.1 (0.0-0.4); EOSINOPHILS % 0.5 % (0.0-6.0); HEMATOCRIT 32.4 % (34.2-44.1); HEMOGLOBIN 10.2 g/dL (12.0-16.0); MEAN CORPUSCULAR HGB CONC 31.5 g/dL (31-35); MONOCYTES # (AUTO) 0.8 (0.2-0.8); MONOCYTES % 7.5 % (4.4-11.3); NEUTROPHILS % 73.4 % (38.7-80.0); PLATELET COUNT 202 x10e3/uL (140-360); RED BLOOD COUNT 3.52 x10e6/uL (3.6-5.1)
[~2021-11-27] MED LIST changes: -LIDOCAINE HCL 2% LOCAL INJ 5 ML SDV VIAL INJ ONE
[2021-11-27 18:05] VITALS: BP 150/80
== END | disposition home or self-care (01) ==
LOC: ENDO 13:03
PROVIDERS: ATTEND Internal Medicine Gastroenterology
DX: K22.2 Esophageal obstruction (principal); K31.7 Polyp of stomach and duodenum; K22.10 Ulcer of esophagus without bleeding; Z98.84 Bariatric surgery status; K21.9 Gastro-esophageal reflux disease without esophagitis; I10 Essential (primary) hypertension; G62.9 Polyneuropathy, unspecified; E78.5 Hyperlipidemia, unspecified; I48.91 Unspecified atrial fibrillation; E03.9 Hypothyroidism, unspecified; Z01.812 Encounter for preprocedural laboratory examination; Z20.822 Contact with and (suspected) exposure to COVID-19; Z79.01 Long term (current) use of anticoagulants; Z79.899 Other long term (current) drug therapy
CPT/HCPCS: 36415; 43235; 43450; 85025; C9113; J2704; J2765; U0002; 43239

== ENCOUNTER → 2022-06-10 | Day surgery (SDC) | payer MEDICARE ==
[2022-06-08 14:34] LABS: BASOPHILS # (AUTO) 0.1 (0.0-0.1); BASOPHILS % 0.8 % (0.0-1.0); EOSINOPHILS # (AUTO) 0.2 (0.0-0.4); EOSINOPHILS % 1.8 % (0.0-6.0); HEMATOCRIT 30.7 % (34.2-44.1); HEMOGLOBIN 8.8 g/dL (12.0-16.0); LYMPHOCYTES # (AUTO) 2.7 (1.0-3.2); LYMPHOCYTES % 31.2 % (18.0-39.1); MEAN CORPUSCULAR HEMOGLOBIN 23.7 pg (28-32); MEAN CORPUSCULAR HGB CONC 28.7 g/dL (31-35); MEAN CORPUSCULAR VOLUME 82.5 fL (81-99); MONOCYTES # (AUTO) 0.9 (0.2-0.8); MONOCYTES % 10.1 % (4.4-11.3); NEUTROPHILS # (AUTO) 4.8 (2.1-6.9); NEUTROPHILS % 55.6 % (38.7-80.0); PLATELET COUNT 222 x10e3/uL (140-360); RED BLOOD COUNT 3.72 x10e6/uL (3.6-5.1); RED CELL DISTRIBUTION WIDTH 18.9 % (11.7-14.4)
[~2022-06-10] MED LIST changes: +BIOTIN PLUS 5,1 EACH PO; +FENTANYL CITRATE/PF 100MCG/2 ML INJ ONE; +FEROSUL325 MG PO; +MIDAZOLAM HCL 2 MG/2 ML VIAL ONE; +PANTOPRAZOLE SOD 40 MG TABEC PO ONE; +PROBIOTIC250 MG PO
[2022-06-10 13:10] LABS: INR 1.07; PROTHROMBIN TIME 14.9 seconds (11.9-14.5)
[2022-06-10 13:11] LABS: PARTIAL THROMBOPLASTIN TIME 29.7 seconds (23.8-35.5)
[2022-06-10 16:05] VITALS: BP 145/88
== END | disposition home or self-care (01) ==
LOC: ENDO 11:39
PROVIDERS: ATTEND Internal Medicine Gastroenterology
DX: K22.2 Esophageal obstruction (principal); K22.10 Ulcer of esophagus without bleeding; Z01.812 Encounter for preprocedural laboratory examination; I10 Essential (primary) hypertension; E78.5 Hyperlipidemia, unspecified; D64.9 Anemia, unspecified; G62.9 Polyneuropathy, unspecified; K21.9 Gastro-esophageal reflux disease without esophagitis; N39.0 Urinary tract infection, site not specified; Z88.6 Allergy status to analgesic agent; Z88.1 Allergy status to other antibiotic agents; Z88.0 Allergy status to penicillin; Z88.2 Allergy status to sulfonamides; Z79.01 Long term (current) use of anticoagulants; Z79.899 Other long term (current) drug therapy
CPT/HCPCS: 36415 ×2; 43248; 71045; 85025; 85610; 85730; 93005; C9113; J2250; J2704; J2765; J3010; 43450

== ENCOUNTER → 2022-10-26 | Day surgery (SDC) | payer MEDICARE ==
[~2022-10-26] MED LIST changes: +LACTATED RINGER'S 1,000 ML ONE; +LIDOCAINE HCL 2% LOCAL INJ 5 ML SDV VIAL INJ ONE; -MIDAZOLAM HCL 2 MG/2 ML VIAL ONE; -PANTOPRAZOLE SOD 40 MG TABEC PO ONE; -PROPOFOL IV EMULSION 10 MG/ML 20 ML VIAL ONE; +PROPOFOL IV EMULSION 10 MG/ML 50 ML VIAL IV ONE; +VITAMIN B-121000 MCG PO; +VITAMIN C1000 MG PO; +VITAMIN D3125 MCG/1 PO; +VSL#3 CAPSULE1 EACH PO
[2022-10-26 11:30] LABS: BASOPHILS # (AUTO) 0.1 (0.0-0.1); BASOPHILS % 0.7 % (0.0-1.0); EOSINOPHILS # (AUTO) 0.1 (0.0-0.4); EOSINOPHILS % 1.4 % (0.0-6.0); HEMATOCRIT 35.7 % (34.2-44.1); HEMOGLOBIN 12.2 g/dL (12.0-16.0); LYMPHOCYTES # (AUTO) 2.1 (1.0-3.2); LYMPHOCYTES % 28.4 % (18.0-39.1); MEAN CORPUSCULAR HEMOGLOBIN 31.6 pg (28-32); MEAN CORPUSCULAR HGB CONC 34.2 g/dL (31-35); MEAN CORPUSCULAR VOLUME 92.5 fL (81-99); MONOCYTES # (AUTO) 0.6 (0.2-0.8); MONOCYTES % 8.6 % (4.4-11.3); NEUTROPHILS # (AUTO) 4.5 (2.1-6.9); NEUTROPHILS % 60.6 % (38.7-80.0); PLATELET COUNT 185 x10e3/uL (140-360); RED BLOOD COUNT 3.86 x10e6/uL (3.6-5.1); RED CELL DISTRIBUTION WIDTH 14.3 % (11.7-14.4)
[2022-10-26 11:50] LABS: INR 1.11; PROTHROMBIN TIME 14.8 seconds (11.9-14.5)
[2022-10-26 13:55] VITALS: BP 147/86
== END | disposition home or self-care (01) ==
LOC: ENDO 10:36
PROVIDERS: ATTEND Internal Medicine Gastroenterology
DX: K22.2 Esophageal obstruction (principal); K29.70 Gastritis, unspecified, without bleeding; K22.10 Ulcer of esophagus without bleeding; K22.89 Other specified disease of esophagus; Z98.84 Bariatric surgery status; D64.9 Anemia, unspecified; I10 Essential (primary) hypertension; Z91.09 Other allergy status, other than to drugs and biological substances; Z79.01 Long term (current) use of anticoagulants; Z79.899 Other long term (current) drug therapy
CPT/HCPCS: 36415; 43239; 43248; 85025; 85610; 85730; 88305; 88312; 88342; 93005; C9113; J2001; J2704; J2765; J3010; J7121; 43450

== ENCOUNTER → 2022-12-07 | Day surgery (SDC) | payer MEDICARE ==
[~2022-12-07] MED LIST changes: +EPINEPHRINE HCL 1:1000 1ML 1 MG/ML AMP ONE; -LACTATED RINGER'S 1,000 ML ONE; -METOCLOPRAMIDE HCL 10 MG/2ML VIAL ONE; +MILK OF MA2400 MG/10 PO; +PROPOFOL IV EMULSION 10 MG/ML 20 ML VIAL ONE; -PROPOFOL IV EMULSION 10 MG/ML 50 ML VIAL IV ONE
[2022-12-07 11:36] LABS: BASOPHILS % 0.5 % (0.0-1.0); EOSINOPHILS # (AUTO) 0.2 (0.0-0.4); EOSINOPHILS % 2.5 % (0.0-6.0); HEMATOCRIT 36.6 % (34.2-44.1); HEMOGLOBIN 11.6 g/dL (12.0-16.0); LYMPHOCYTES # (AUTO) 1.6 (1.0-3.2); MEAN CORPUSCULAR HEMOGLOBIN 31.3 pg (28-32); MEAN CORPUSCULAR HGB CONC 31.7 g/dL (31-35); MEAN CORPUSCULAR VOLUME 98.7 fL (81-99); MONOCYTES # (AUTO) 0.5 (0.2-0.8); NEUTROPHILS # (AUTO) 4.1 (2.1-6.9); NEUTROPHILS % 63.5 % (38.7-80.0); PLATELET COUNT 145 x10e3/uL (140-360); RED BLOOD COUNT 3.71 x10e6/uL (3.6-5.1); RED CELL DISTRIBUTION WIDTH 13.4 % (11.7-14.4)
[2022-12-07 11:57] LABS: INR 0.97; PROTHROMBIN TIME 13.4 seconds (11.9-14.5)
[2022-12-07 11:58] LABS: PARTIAL THROMBOPLASTIN TIME 30.9 seconds (23.8-35.5)
[2022-12-07 12:53] VITALS: TEMP 97.6
[2022-12-07 13:25] VITALS: BP 121/74; PULSE 92; RESP 16; O2SAT 95
== END | disposition home or self-care (01) ==
LOC: ENDO 11:07
PROVIDERS: ATTEND Internal Medicine Gastroenterology
DX: K22.2 Esophageal obstruction (principal); K29.70 Gastritis, unspecified, without bleeding; K21.9 Gastro-esophageal reflux disease without esophagitis; Z85.020 Personal history of malignant carcinoid tumor of stomach; Z98.84 Bariatric surgery status; D64.9 Anemia, unspecified; E78.00 Pure hypercholesterolemia, unspecified; I10 Essential (primary) hypertension; E03.9 Hypothyroidism, unspecified; I48.91 Unspecified atrial fibrillation; G62.9 Polyneuropathy, unspecified; Z88.1 Allergy status to other antibiotic agents; Z88.0 Allergy status to penicillin; Z88.2 Allergy status to sulfonamides; Z88.8 Allergy status to other drugs, medicaments and biological substances; Z79.01 Long term (current) use of anticoagulants; Z79.899 Other long term (current) drug therapy
CPT/HCPCS: 36415; 43450; 85025; 85610; 85730; J0171; J2001

== ENCOUNTER 2023-12-06 15:10 | Emergency (ER) | payer MEDICARE ==
[~2023-12-06] VITALS: Ht 167.6 cm; Wt 64.0 kg
[~2023-12-06 15:10] MED LIST changes: -EPINEPHRINE HCL 1:1000 1ML 1 MG/ML AMP ONE; -FENTANYL CITRATE/PF 100MCG/2 ML INJ ONE; -LIDOCAINE HCL 2% LOCAL INJ 5 ML SDV VIAL INJ ONE; -PROPOFOL IV EMULSION 10 MG/ML 20 ML VIAL ONE
[2023-12-06] MEDS ORDERED: SODIUM CHLORIDE FLUSH 10 ML SYR IV PRN (15:30)
[2023-12-06 15:47] LABS: BASOPHILS % 0.6 % (0.0-1.0); EOSINOPHILS % 0.6 % (0.0-6.0); HEMATOCRIT 32.8 % (34.2-44.1); HEMOGLOBIN 11.4 g/dL (12.0-16.0); LYMPHOCYTES # (AUTO) 1.6 (1.0-3.2); LYMPHOCYTES % 24.3 % (18.0-39.1); MEAN CORPUSCULAR HEMOGLOBIN 31.1 pg (28-32); MEAN CORPUSCULAR HGB CONC 34.8 g/dL (31-35); MEAN CORPUSCULAR VOLUME 89.4 fL (81-99); MONOCYTES # (AUTO) 0.5 (0.2-0.8); MONOCYTES % 7.5 % (4.4-11.3); NEUTROPHILS # (AUTO) 4.5 (2.1-6.9); NEUTROPHILS % 66.9 % (38.7-80.0); PLATELET COUNT 199 x10e3/uL (140-360); RED BLOOD COUNT 3.67 x10e6/uL (3.6-5.1); RED CELL DISTRIBUTION WIDTH 12.9 % (11.7-14.4); WHITE BLOOD COUNT 6.67 x10e3/uL (4.8-10.8)
[2023-12-06] MEDS: KETOROLAC TROMETHAMINE 30 MG/ML VIAL IV STA (15:54)
[2023-12-06 15:58] VITALS: BP 136/123; PULSE 71; RESP 11
[2023-12-06 16:05] LABS: ALBUMIN 3.6 g/dL (3.5-5.0); ANION GAP 13.3 mmol/L (8-16); BILIRUBIN,TOTAL 0.5 mg/dL (0.2-1.2); CALCIUM 8.9 mg/dL (8.4-10.2); CREATININE, SERUM 0.68 mg/dL (0.57-1.11); POTASSIUM 4.3 mmol/L (3.5-5.1); TOTAL PROTEIN 7.2 g/dL (6.5-8.1)
[2023-12-06 16:10] LABS: TROPONIN I 0.005 ng/mL (0-0.300)
[2023-12-06] MEDS ORDERED: ONDANSETRON HCL INJ 2MG/ML 2ML 2 MG/ML VIAL IV PRN (16:45)
[2023-12-06] MEDS ORDERED: SODIUM CHLORIDE FLUSH 10 ML SYR INJ PRN (16:45)
[2023-12-06] MEDS ORDERED: ASPIRIN 81 MG CHEW TAB PO ONE (16:45)
[2023-12-06 17:00] VITALS: O2SAT 97
== END 2023-12-06 17:40 | disposition left against medical advice (07) ==
LOC: ER 15:30 → UNDOADMOB 16:43 → ERHOLD 16:43
DX: R06.02 Shortness of breath (principal); R07.9 Chest pain, unspecified; R11.2 Nausea with vomiting, unspecified; I10 Essential (primary) hypertension; E78.5 Hyperlipidemia, unspecified; I48.91 Unspecified atrial fibrillation; F41.9 Anxiety disorder, unspecified
CPT/HCPCS: 36415; 71046; 80053; 83880; 84484; 85025; 93005; 94760; 99284; J1885

== ENCOUNTER 2024-04-20 14:59 | Emergency (ER) | payer MEDICARE ==
[~2024-04-20] VITALS: Ht 167.6 cm; Wt 64.0 kg
[2024-04-20 15:30] LABS: BASOPHILS # (AUTO) 0.1 (0.0-0.1); BASOPHILS % 0.6 % (0.0-1.0); EOSINOPHILS # (AUTO) 0.1 (0.0-0.4); EOSINOPHILS % 1.2 % (0.0-6.0); HEMATOCRIT 34.3 % (34.2-44.1); HEMOGLOBIN 10.9 g/dL (12.0-16.0); LYMPHOCYTES # (AUTO) 1.6 (1.0-3.2); MEAN CORPUSCULAR HEMOGLOBIN 31.1 pg (28-32); MEAN CORPUSCULAR HGB CONC 31.8 g/dL (31-35); MONOCYTES # (AUTO) 0.6 (0.2-0.8); MONOCYTES % 7.6 % (4.4-11.3); NEUTROPHILS # (AUTO) 5.3 (2.1-6.9); NEUTROPHILS % 69.1 % (38.7-80.0); PLATELET COUNT 212 x10e3/uL (140-360); RED CELL DISTRIBUTION WIDTH 13.7 % (11.7-14.4); WHITE BLOOD COUNT 7.73 x10e3/uL (4.8-10.8)
[2024-04-20 15:34] LABS: INR 1.45; PROTHROMBIN TIME 18.4 seconds (11.9-14.5)
[2024-04-20 15:35] LABS: PARTIAL THROMBOPLASTIN TIME 31.3 seconds (23.8-35.5)
[2024-04-20 15:43] LABS: ALBUMIN 3.7 g/dL (3.5-5.0); ALBUMIN/GLOBULIN RATIO 1.2 (0.8-2.0); ANION GAP 14.1 mmol/L (8-16); BILIRUBIN,TOTAL 0.3 mg/dL (0.2-1.2); CALCIUM 8.8 mg/dL (8.4-10.2); CREATININE, SERUM 0.72 mg/dL (0.57-1.11); POTASSIUM 4.1 mmol/L (3.5-5.1); TOTAL PROTEIN 6.9 g/dL (6.5-8.1)
[2024-04-20 15:48] LABS: TROPONIN I 0.001 ng/mL (0-0.300)
[2024-04-20] MEDS: TETANUS/DIPHTHERIA TOX ADULT 0.5 ML SYR IM ONE (16:50)
[2024-04-20 17:44] VITALS: PULSE 91; RESP 18; TEMP 97.8; O2SAT 99
[2024-04-20] MEDS: ONDANSETRON HCL INJ 2MG/ML 2ML 2 MG/ML VIAL IV STA (17:59)
[2024-04-20] MEDS: SODIUM CHLORIDE 0.9% 500ML 500 ML IV ONE (17:59)
[2024-04-20] MEDS: Morphine 2mg Syringe 2 MG/ML SYR IV ONE (18:01)
[2024-04-20] MEDS ORDERED: HYDROCODON-ACE1 EA11 PO (18:25)
== END 2024-04-20 19:17 | disposition home or self-care (01) ==
LOC: ER 15:09
DX: S01.81XA Laceration without foreign body of other part of head, initial encounter (principal); S20.212A Contusion of left front wall of thorax, initial encounter; R07.81 Pleurodynia; W01.0XXA Fall on same level from slipping, tripping and stumbling without subsequent striking against object, initial encounter; Y93.01 Activity, walking, marching and hiking; Y92.29 Other specified public building as the place of occurrence of the external cause; I10 Essential (primary) hypertension; E78.5 Hyperlipidemia, unspecified; I48.91 Unspecified atrial fibrillation; F41.9 Anxiety disorder, unspecified; R94.31 Abnormal electrocardiogram [ECG] [EKG]
CPT/HCPCS: 12011; 36415; 70450; 70486; 71250; 72125; 73590; 80053; 82550; 84484; 85025; 85610; 85730; 90471; 90714; 93005; 99283; J2270; J2405; J7040

== ENCOUNTER 2024-05-10 20:31 | Inpatient (IN) | payer MEDICARE ==
[~2024-05-10] VITALS: Ht 167.6 cm; Wt 64.0 kg
[~2024-05-10 20:31] MED LIST changes: +HYDROCODON-ACE1 EA11 PO
[2024-05-10] MEDS: ONDANSETRON HCL 4 MG ORAL DISINTEGRATING TAB PO ONE (21:02)
[2024-05-10] MEDS: TRAMADOL HCL 50 MG TAB PO ONE (21:02)
[2024-05-10] MEDS: FENTANYL CITRATE/PF 100MCG/2 ML INJ IV ONE (21:22)
[2024-05-10] MEDS: ONDANSETRON HCL INJ 2MG/ML 2ML 2 MG/ML VIAL IV STA (21:22)
[2024-05-10] MEDS: Morphine 4mg INJECTION 4 MG/ML INJ IV ONE (23:03)
[2024-05-11] VITALS (8 sets, daily range): BP systolic 115–135; BP diastolic 63–65; PULSE 80–97; RESP 14–17; TEMP 98.1–98.7; O2SAT 95–98
[2024-05-11] MEDS ORDERED: SODIUM CHLORIDE FLUSH 10 ML SYR INJ PRN (01:15)
[2024-05-11 01:30] LABS: INR 2.56; PROTHROMBIN TIME 28.7 seconds (11.9-14.5)
[2024-05-11 01:31] LABS: PARTIAL THROMBOPLASTIN TIME 57.3 seconds (23.8-35.5)
[2024-05-11 01:33] LABS: BASOPHILS % 0.2 % (0.0-1.0); EOSINOPHILS % 0.1 % (0.0-6.0); HEMATOCRIT 32.2 % (34.2-44.1); HEMOGLOBIN 10.4 g/dL (12.0-16.0); LYMPHOCYTES # (AUTO) 0.9 (1.0-3.2); LYMPHOCYTES % 6.6 % (18.0-39.1); MEAN CORPUSCULAR HEMOGLOBIN 31.1 pg (28-32); MEAN CORPUSCULAR HGB CONC 32.3 g/dL (31-35); MEAN CORPUSCULAR VOLUME 96.4 fL (81-99); MONOCYTES # (AUTO) 0.8 (0.2-0.8); MONOCYTES % 5.6 % (4.4-11.3); NEUTROPHILS # (AUTO) 11.6 (2.1-6.9); NEUTROPHILS % 87.1 % (38.7-80.0); PLATELET COUNT 243 x10e3/uL (140-360); RED BLOOD COUNT 3.34 x10e6/uL (3.6-5.1); WHITE BLOOD COUNT 13.35 x10e3/uL (4.8-10.8)
[2024-05-11 01:34] LABS: CALCIUM 8.9 mg/dL (8.4-10.2); CREATININE, SERUM 0.69 mg/dL (0.57-1.11)
[2024-05-11] MEDS: Morphine 4mg INJECTION 4 MG/ML INJ IV PRN (02:26)
[2024-05-11] MEDS: CARBAMAZEPINE 200 MG TAB PO ONE (03:00)
[2024-05-11 06:55] LABS: ALBUMIN 3.3 g/dL (3.5-5.0); BILIRUBIN,DIRECT 0.3 mg/dL (0.0-0.5); BILIRUBIN,TOTAL 0.5 mg/dL (0.2-1.2); TOTAL PROTEIN 6.9 g/dL (6.5-8.1)
[2024-05-11] MEDS: ONDANSETRON HCL INJ 2MG/ML 2ML 2 MG/ML VIAL IV PRN (07:12)
[2024-05-11] MEDS ORDERED: HYDRALAZINE HCL 20 MG/ML VIAL IV PRN (08:45)
[2024-05-11] MEDS ORDERED: ACETAMINOPHEN 325 MG TAB PO PRN (08:45)
[2024-05-11] MEDS: POLYETHYLENE GLYCOL 3350 17 GM PACK PO SCH (09:21)
[2024-05-11] MEDS: METOPROLOL SUCCINATE 50 MG TAB XL PO SCH (13:23)
[2024-05-11] MEDS: Vancomycin IV 1 GM in SODIUM CHLORIDE 0.9% 250ML 250 ML IV SCH (13:23)
[2024-05-11] MEDS: BUSPIRONE HCL 10 MG TABLET PO SCH (15:26)
[2024-05-11] MEDS ORDERED: LIDOCAINE HCL 2% LOCAL INJ 5 ML SDV VIAL INJ ONE (17:33)
[2024-05-11] MEDS ORDERED: PROPOFOL IV EMULSION 10 MG/ML 20 ML VIAL ONE (17:33)
[2024-05-11] MEDS: CYANOCOBALAMIN 1,000 MCG TAB PO SCH (20:19)
[2024-05-11] MEDS: CARBAMAZEPINE 200 MG TAB PO SCH (20:19)
[2024-05-11] MEDS: FERROUS SULFATE 325 MG TAB PO SCH (20:19)
[2024-05-11] MEDS: METOPROLOL SUCCINATE 25 MG TAB XL PO SCH (20:20)
[2024-05-11] MEDS: CHOLECALCIFEROL 1,000 UNIT TAB PO SCH (20:22)
[2024-05-11] MEDS: CRESTOR 10MG PO SCH (21:00)
[2024-05-11] MEDS: HYDROCODONE/APAP 5MG-325MG TAB PO PRN (22:39)
[2024-05-12 04:00] VITALS: BP 122/65; PULSE 88; RESP 16; TEMP 98; O2SAT 98
[2024-05-12] MEDS: LEVOTHYROXINE SODIUM 75 MCG TAB PO SCH (05:23)
[2024-05-12] MEDS ORDERED: PANTOPRAZOLE SOD 40 MG TABEC PO SCH (07:30)
[2024-05-12 07:51] VITALS: BP 148/65; PULSE 91; RESP 19; TEMP 98.9; O2SAT 99
[2024-05-12 08:33] VITALS: BP 148/65; PULSE 91; RESP 19; TEMP 98.9; O2SAT 99
[2024-05-12 12:08] VITALS: BP 151/71; PULSE 93; RESP 19; TEMP 98.5; O2SAT 98
[2024-05-12 15:33] VITALS: BP 109/60; PULSE 81; RESP 19; TEMP 97.6; O2SAT 97
[2024-05-12 20:00] VITALS: BP 109/60; PULSE 81; RESP 19; TEMP 97.6; O2SAT 97
[2024-05-12] MEDS: LORATADINE 10 MG TAB PO SCH (20:07)
[2024-05-12] MEDS: SIMETHICONE 80 MG CHEW PO PRN (21:37)
[2024-05-12] MEDS: METOCLOPRAMIDE HCL 10 MG/2ML VIAL IV ONE (21:39)
[2024-05-12] MEDS: POLYETHYLENE GLYCOL 3350 17 GM PACK PO STA (22:20)
[2024-05-13] VITALS (7 sets, daily range): BP systolic 135–153; BP diastolic 68–83; PULSE 85–96; RESP 16–19; TEMP 97.8–98.6; O2SAT 96–98
[2024-05-13] MEDS: METOCLOPRAMIDE HCL 10 MG/2ML VIAL IV SCH (08:58)
[2024-05-13] MEDS: POLYETHYLENE GLYCOL 3350 17 GM PACK PO SCH (09:00)
[2024-05-13] MEDS ORDERED: FOSFOMYCIN TROMETHAMINE 3 GM PACKET PO ONE (17:45)
[2024-05-14] VITALS (7 sets, daily range): BP systolic 132–158; BP diastolic 65–90; PULSE 76–110; RESP 16–18; TEMP 97.2–97.9; O2SAT 95–100
[2024-05-14] MEDS: LIDOCAINE 4% PATCH TP SCH (08:44)
[2024-05-14] MEDS: Morphine 4mg INJECTION 4 MG/ML INJ IV ONE (12:07)
[2024-05-14] MEDS: FOSFOMYCIN TROMETHAMINE 3 GM PACKET PO ONE (16:53)
[2024-05-15] VITALS (7 sets, daily range): BP systolic 135–157; BP diastolic 62–94; PULSE 95–104; RESP 16–18; TEMP 97–98.4; O2SAT 93–100
[2024-05-15 06:20] LABS: BASOPHILS # (AUTO) 0.1 (0.0-0.1); BASOPHILS % 0.5 % (0.0-1.0); EOSINOPHILS % 0.2 % (0.0-6.0); HEMATOCRIT 34.8 % (34.2-44.1); HEMOGLOBIN 11.3 g/dL (12.0-16.0); LYMPHOCYTES # (AUTO) 1.4 (1.0-3.2); LYMPHOCYTES % 10.9 % (18.0-39.1); MEAN CORPUSCULAR HEMOGLOBIN 30.5 pg (28-32); MEAN CORPUSCULAR HGB CONC 32.5 g/dL (31-35); MEAN CORPUSCULAR VOLUME 94.1 fL (81-99); MONOCYTES # (AUTO) 1.1 (0.2-0.8); MONOCYTES % 8.9 % (4.4-11.3); NEUTROPHILS # (AUTO) 9.7 (2.1-6.9); NEUTROPHILS % 78.9 % (38.7-80.0); PLATELET COUNT 270 x10e3/uL (140-360); RED CELL DISTRIBUTION WIDTH 12.9 % (11.7-14.4); WHITE BLOOD COUNT 12.34 x10e3/uL (4.8-10.8)
[2024-05-15 07:22] LABS: ALBUMIN 2.8 g/dL (3.5-5.0); ALBUMIN/GLOBULIN RATIO 0.7 (0.8-2.0); ANION GAP 18.7 mmol/L (8-16); CREATININE, SERUM 0.68 mg/dL (0.57-1.11); POTASSIUM 3.7 mmol/L (3.5-5.1); TOTAL PROTEIN 6.8 g/dL (6.5-8.1)
[2024-05-15] MEDS: Morphine 4mg INJECTION 4 MG/ML INJ IV PRN (20:46)
[2024-05-15] MEDS: SODIUM CHLORIDE 0.9% 250ML 250 ML ONE (20:47)
[2024-05-16] VITALS (8 sets, daily range): BP systolic 125–150; BP diastolic 69–78; PULSE 83–114; RESP 16–18; TEMP 97.2–98.6; O2SAT 95–98
[2024-05-16 05:57] LABS: BASOPHILS % 0.4 % (0.0-1.0); EOSINOPHILS # (AUTO) 0.1 (0.0-0.4); EOSINOPHILS % 0.6 % (0.0-6.0); HEMATOCRIT 34.9 % (34.2-44.1); HEMOGLOBIN 11.4 g/dL (12.0-16.0); LYMPHOCYTES # (AUTO) 1.3 (1.0-3.2); LYMPHOCYTES % 11.6 % (18.0-39.1); MEAN CORPUSCULAR HEMOGLOBIN 30.5 pg (28-32); MEAN CORPUSCULAR HGB CONC 32.7 g/dL (31-35); MEAN CORPUSCULAR VOLUME 93.3 fL (81-99); MONOCYTES # (AUTO) 1.3 (0.2-0.8); MONOCYTES % 11.7 % (4.4-11.3); NEUTROPHILS # (AUTO) 8.1 (2.1-6.9); NEUTROPHILS % 75.1 % (38.7-80.0); PLATELET COUNT 241 x10e3/uL (140-360); RED BLOOD COUNT 3.74 x10e6/uL (3.6-5.1); RED CELL DISTRIBUTION WIDTH 12.9 % (11.7-14.4); WHITE BLOOD COUNT 10.83 x10e3/uL (4.8-10.8)
[2024-05-16] MEDS: DOCUSATE SODIUM LIQD 100 MG/10 ML UDC NG SCH (16:06)
[2024-05-16] MEDS: OXYCODONE/ACETAMINOPHEN 5-325 1 EACH TABLET PO PRN (16:06)
[2024-05-16] MEDS: SENNOSIDES 8.6 MG TAB PO SCH (16:06)
[2024-05-16] MEDS: Morphine 2mg Syringe 2 MG/ML SYR IV PRN (18:07)
[2024-05-17] VITALS: BP 100/68; PULSE 92; RESP 18; TEMP 98.5; O2SAT 95
[2024-05-17] MEDS: SODIUM CHLORIDE 0.9% 250ML 250 ML ONE (02:55)
[2024-05-17 04:00] VITALS: BP 110/67; PULSE 94; RESP 18; TEMP 98.6; O2SAT 97
[2024-05-17 09:31] VITALS: BP 106/56; PULSE 60; RESP 18; TEMP 98.8; O2SAT 96
[2024-05-17 09:33] VITALS: BP_SYST 106; BP_DIAS 56; BP_DIAS 73; PULSE 50; PULSE 60; RESP 18; TEMP 98.8; O2SAT 96
[2024-05-17 12:21] VITALS: BP 106/63; PULSE 108; RESP 18; TEMP 98; O2SAT 97
[2024-05-17] MEDS ORDERED: OXYCODONE/ACETAMINOPHEN 5-325 1 EACH TABLET PO PRN (16:00)
[2024-05-17 16:20] VITALS: BP 100/62; PULSE 97; RESP 18; TEMP 98.3; O2SAT 97
[2024-05-17] MEDS: Morphine 2mg Syringe 2 MG/ML SYR IV PRN (17:10)
[2024-05-17] MEDS: APIXABAN 2.5 MG TABLET PO SCH (17:11)
[2024-05-17] MEDS ORDERED: Morphine 2mg Syringe 2 MG/ML SYR IV SCH (18:00)
[2024-05-17] MEDS ORDERED: OXYCODONE/ACETAMINOPHEN 5-325 1 EACH TABLET PO SCH (18:00)
[2024-05-18] MEDS ORDERED: Vancomycin IV 500 MG in SODIUM CHLORIDE 0.9% 100 ML IV SCH (14:00)
== END 2024-05-17 18:15 | DRG 184 ==
LOC: ER 20:38 → ERHOLD 05-11 01:11 → OBSVTOIN 05-11 10:57 → MED/SURG2 05-11 12:45
PROVIDERS: ADMIT Internal Medicine; ATTEND Internal Medicine
PROC: 0D748ZZ Dilation of Esophagogastric Junction, Via Natural or Artificial Opening Endoscopic (ICD-10-PCS; principal; 2024-05-14 16:15)
DX: S22.42XA Multiple fractures of ribs, left side, initial encounter for closed fracture (principal); D68.69 Other thrombophilia; S22.089A Unspecified fracture of T11-T12 vertebra, initial encounter for closed fracture; S22.079A Unspecified fracture of T9-T10 vertebra, initial encounter for closed fracture; S32.019A Unspecified fracture of first lumbar vertebra, initial encounter for closed fracture; N39.0 Urinary tract infection, site not specified; F11.20 Opioid dependence, uncomplicated; I48.20 Chronic atrial fibrillation, unspecified; L97.526 Non-pressure chronic ulcer of other part of left foot with bone involvement without evidence of necrosis; Z66 Do not resuscitate; R13.10 Dysphagia, unspecified; K83.8 Other specified diseases of biliary tract; K22.2 Esophageal obstruction; G62.9 Polyneuropathy, unspecified; K25.9 Gastric ulcer, unspecified as acute or chronic, without hemorrhage or perforation; D72.829 Elevated white blood cell count, unspecified; D64.9 Anemia, unspecified; M54.9 Dorsalgia, unspecified; I10 Essential (primary) hypertension; G89.4 Chronic pain syndrome; E78.5 Hyperlipidemia, unspecified; E03.9 Hypothyroidism, unspecified; F41.9 Anxiety disorder, unspecified; K29.70 Gastritis, unspecified, without bleeding; R26.89 Other abnormalities of gait and mobility; M14.672 Charcot's joint, left ankle and foot; K21.9 Gastro-esophageal reflux disease without esophagitis; R53.81 Other malaise; K59.00 Constipation, unspecified; J30.9 Allergic rhinitis, unspecified; B96.20 Unspecified Escherichia coli [E. coli] as the cause of diseases classified elsewhere; H91.90 Unspecified hearing loss, unspecified ear; W01.198A Fall on same level from slipping, tripping and stumbling with subsequent striking against other object, initial encounter; Y92.012 Bathroom of single-family (private) house as the place of occurrence of the external cause; Z79.01 Long term (current) use of anticoagulants; Z79.890 Hormone replacement therapy; Z94.5 Skin transplant status; Z90.49 Acquired absence of other specified parts of digestive tract; Z90.710 Acquired absence of both cervix and uterus; Z88.0 Allergy status to penicillin; Z88.1 Allergy status to other antibiotic agents; Z88.2 Allergy status to sulfonamides; Z88.8 Allergy status to other drugs, medicaments and biological substances; Z98.1 Arthrodesis status; Z87.891 Personal history of nicotine dependence
CPT/HCPCS: 36415; 43450; 70450; 72125; 72128; 72131; 72192; 74181; 80048; 80053; 80076; 80202; 85025; 85610; 85730; 86301; 93306; 93880; 94799; 99252; 99285; C1769; J2003; J2270; J2405; J2470; J2765; J7050; Q0162

== ENCOUNTER → 2025-04-05 | Day surgery (SDC) | payer MEDICARE ==
[~2025-04-05] MED LIST changes: +ACETAMINOPHEN650 MG PO; +ARTIFICIAL TEAR15 ML OD; +BIOFREEZE118 M1 TOP; +DOCUSATE SODIU100 MG PO; +ELIQUIS5 MG PO; +ENULOSE10 GM/15 M PO; +FAMOTIDINE20 MG PO; +LIDOCAINE HCL 2% LOCAL INJ 5 ML SDV VIAL INJ ONE; +LIDOCAINE PATCHES; +LOPERAMIDE2 MG PO; +MAGNESIUM OXID400 MG PO; +METHOCARBAMOL750 MG PO; +METOCLOPRAM5 MG/5 ML PO; +MIRALAX17 GM PO; +NYSTATIN15 GM TOP; +ONDANSETRON ODT4 MG PO; +PROPOFOL IV EMULSION 10 MG/ML 20 ML VIAL ONE; +QUESTRAN PACKET4 GM PO; +SENNA LAX8.6 MG PO; +SODIUM CHLORI1000 MG PO; +SODIUM CHLORI1000 ML PO
[2025-04-05 10:48] LABS: BASOPHILS % 0.5 % (0.0-1.0); EOSINOPHILS % 2.0 % (0.0-6.0); LYMPHOCYTES % 23.8 % (18.0-39.1); MONOCYTES % 8.3 % (4.4-11.3); NEUTROPHILS % 65.0 % (38.7-80.0); RED CELL DISTRIBUTION WIDTH 13.6 % (11.7-14.4)
[2025-04-05 13:40] VITALS: BP 152/73; PULSE 73; RESP 17; TEMP 97.4; O2SAT 98
== END | disposition home or self-care (01) ==
LOC: ENDO 09:50
PROVIDERS: ATTEND Internal Medicine Gastroenterology
DX: K22.2 Esophageal obstruction (principal); K31.7 Polyp of stomach and duodenum; K29.70 Gastritis, unspecified, without bleeding; K22.89 Other specified disease of esophagus; K20.90 Esophagitis, unspecified without bleeding; K21.9 Gastro-esophageal reflux disease without esophagitis; R19.7 Diarrhea, unspecified; Z86.0100 Personal history of colon polyps, unspecified; I10 Essential (primary) hypertension; Z71.89 Other specified counseling; Z71.3 Dietary counseling and surveillance; Z91.81 History of falling
CPT/HCPCS: 36415; 43239; 43450; 85025; 88305; 93005; J2003; J2470; J2704; 88304